=== PATIENT | male | born 1950 | race African-American/Black ===

== ENCOUNTER 2018-03-13 01:42 | Inpatient (IN) ==
[2018-03-13] MEDS ORDERED: Sodium Chlor 0.9% Inj 500 ML IV.SIG ONE ×3 (02:02→06:30)
[2018-03-13 02:23] LABS: ABG Base Excess -0.3 mmol/L (-2-2); ABG PCO2 28 mmHg (38-42); ABG PO2 86 mmHg (61-120)
[2018-03-13 02:24] LABS: Baso # (Auto) 0.1 th/mm3 (0.0-0.2); Baso % (Auto) 1.1 % (0.0-2.0); Eos % (Auto) 0.7 % (0.0-4.0); Hematocrit 36.8 % (39.0-51.0); Hemoglobin 12.9 gm/dL (13.0-17.0); Lymph # (Auto) 0.8 th/mm3 (1.0-4.8); Lymph % (Auto) 11.9 % (9.0-44.0); Mean Corpuscular Hemoglobin 31.8 pg (27.0-34.0); Mean Corpuscular Volume 90.9 fL (80.0-100.0); Mean Platelet Volume 8.6 fL (7.0-11.0); Mono # (Auto) 0.5 th/mm3 (0.0-0.9); Mono % (Auto) 8.2 % (0.0-8.0); Neut # (Auto) 5.1 th/mm3 (1.8-7.7); Neut % (Auto) 78.1 % (16.0-70.0); Platelet Count 219 th/mm3 (150-450); Red Blood Count 4.05 mil/mm3 (4.50-5.90); Red Cell Distribution Width 14.3 % (11.6-17.2); White Blood Count 6.6 th/mm3 (4.0-11.0)
--- NOTE | 2018-03-13 02:29 | XR ---
EXAM DATE: 03/13/2018 2:17 AM EST AGE/SEX: 67 years / Male INDICATIONS: Cough. Congestion. CLINICAL DATA: This is the patient's initial encounter. Patient reports that signs and symptoms have been present for 3 days and indicates a pain score of 5/10. MEDICAL/SURGICAL HISTORY: None. None. COMPARISON: No prior exams available for comparison. FINDINGS: Single AP view the chest. The lungs are clear. Cardiomediastinal silhouette within normal limits. No evidence of pleural effusion or pneumothorax. CONCLUSION: No acute cardiopulmonary disease identified. Electronically signed by: Miller Kenney MD 03/13/2018 2:28 AM EST
[2018-03-13 02:37] LABS: Alanine Aminotransferase 15 U/L (12-78); Albumin 3.7 g/dL (3.4-5.0); Anion Gap 11 meq/L (5-15); Aspartate Aminotransferase 16 U/L (15-37); Blood Urea Nitrogen 13 mg/dL (7-18); Calcium 8.6 mg/dL (8.5-10.1); Carbon Dioxide 23.3 meq/L (21.0-32.0); Chloride 106 meq/L (98-107); Glomerular Filtration Rate 55 mL/min (>89); Glucose,Random 168 mg/dL (74-106); Lipase 86 U/L (73-393); Potassium 3.4 meq/L (3.5-5.1); Sodium 140 meq/L (136-145)
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
[2018-03-13 02:46] LABS: Alkaline Phosphatase 51 U/L (45-117); Creatine Kinase 247 U/L (39-308); Total Protein 8.1 g/dL (6.4-8.2)
[2018-03-13 02:59] LABS: Creatine Kinase MB 3.2 ng/mL (0.5-3.6)
--- NOTE | 2018-03-13 03:05 | CT ---
EXAM DATE: 03/13/2018 2:59 AM EST AGE/SEX: 67 years / Male INDICATIONS: Altered mental status. CLINICAL DATA: This is the patient's initial encounter. Patient reports that signs and symptoms have been present for 1 day and indicates a pain score of 0/10. MEDICAL/SURGICAL HISTORY: Hypertension. None. RADIATION DOSE: 52.19 CTDI (mGy) COMPARISON: No prior exams available for comparison. TECHNIQUE: CT of the head without contrast. Using automated exposure control and adjustment of the mA and/or kV according to patient size, radiation dose was kept as low as reasonably achievable to ob tain optimal diagnostic quality images. DICOM format image data is available electronically for revi ew and comparison. FINDINGS: Cerebrum: The ventricles are normal for age. No evidence of midline shift, mass lesion, hemorrhage or acute infarction. No extraaxial fluid collections are seen. Posterior Fossa: The cerebellum and brainstem are intact. The 4th ventricle is midline. The cerebe llopontine angle is unremarkable. Extracranial: The visualized portion of the orbits is intact. Skull: The calvaria is intact. No evidence of skull fracture. CONCLUSION: No acute intracranial findings. . Electronically signed by: Miller Kenney MD 03/13/2018 3:04 AM EST
[2018-03-13] MEDS ORDERED: Vancomycin Inj 1,000 MG in Sodium Chlor 0.9% Inj 250 ML IV.SIG ONE (03:30)
[2018-03-13] MEDS ORDERED: Piperacil/Tazo 3.375 GM Premix 50 ML IV.SIG ONE (03:30)
[2018-03-13 03:35] LABS: Amphetamine Screen,Urine Neg (Neg); Barbiturate Screen,Urine Neg (Neg); Cannabinoid Screen,Urine Neg (Neg); Cocaine Screen,Urine Neg (Neg)
[2018-03-13 03:47] LABS: Bilirubin,Urine Negative (Negative); Clarity,Urine Clear (Clear); Color,Urine Yellow (Yellw/Straw); Glucose,Urine (UA) Negative (Negative); Hyaline Casts,Urine 26 /lpf (0-3); Leukocyte Esterase,Urine Negative (Negative); Mucus,Urine Few /lpf (Occasional); Nitrite,Urine Negative (Negative); Specific Gravity,Urine 1.011 (1.002-1.035)
[2018-03-13 03:54] LABS: Opiate Screen,Urine Neg (Neg)
[2018-03-13] MEDS ORDERED: Bisacodyl 10 MG Supp RECTAL PRN (04:46)
[2018-03-13] MEDS ORDERED: Acetaminophen 325 MG Tablet PO PRN (04:46)
[2018-03-13] MEDS ORDERED: Enoxaparin Inj 40 MG/0.4 ML Syringe SQ SCH (05:00)
[2018-03-13] MEDS ORDERED: Piperacil/Tazo 3.375 GM Premix 50 ML IV.SIG SCH (05:00)
[2018-03-13] MEDS ORDERED: Haloperidol Inj 5 MG/ML Ampul IM ONE ×2 (05:25→05:48)
[2018-03-13] MEDS ORDERED: Haloperidol Inj 5 MG/ML Ampul ONE (05:26)
[2018-03-13] MEDS ORDERED: Thiamine Inj 500 MG in Sodium Chlor 0.9% Inj 250 ML IV.SIG ONE (07:30)
--- NOTE | 2018-03-13 07:49 | CT ---
EXAM DATE: 03/13/2018 7:46 AM EST AGE/SEX: 67 years / Male INDICATIONS: Short of breath. Embolism. CLINICAL DATA: This is the patient's initial encounter. Patient reports that signs and symptoms have been present for 1 day and indicates a pain score of Nonresponsive. MEDICAL/SURGICAL HISTORY: Hypertension. Non-responsive. RADIATION DOSE: 10.70 CTDI (mGy) COMPARISON: No prior exams available for comparison. TECHNIQUE: Volumetric scanning was performed using a multi-row detector CT scanner during bolus infu jonelle of 73 ml Omnipaque 350 (iohexol) nonionic water-soluble contrast as a single exam dose. The valeria a was post processed with a variety of visualization algorithms including full volume maximum intensi ty projection and sliding thin slab reformation. Using automated exposure control and adjustment of t he mA and/or kV according to patient size, radiation dose was kept as low as reasonably achievable to obtain optimal diagnostic quality images. DICOM format image data is available electronically for r eview and comparison. FINDINGS: Pulmonary Arteries: No filling defects are seen in the pulmonary arteries out to the subsegmental ve ssels. The left and right pulmonary arteries are normal in diameter. Lung: No infiltrates seen. 4 mm granuloma right upper lobe. Effusion: None. Mediastinum: No evidence of mediastinal or hilar adenopathy. Other: The axilla is unremarkable. CONCLUSION: 1. Negative for central pulmonary emboli. 2. There is no pericardial effusion. 3. I don't see evidence for congestive failure. 4. I do not see significant emphysematous changes. Electronically signed by: Bony Veloz MD 03/13/2018 7:48 AM EST
[2018-03-13] MEDS: Sod Chloride 0.9% Inj 1,000 ML IV.CONT SCH ×2 (12:14→17:38)
[2018-03-13] MEDS: Piperacil/Tazo 3.375 GM Premix 50 ML IV.SIG SCH ×3 (12:14→23:11)
--- NOTE | 2018-03-13 14:05 | P.HPIM ---
History of Present Illness Primary Care Physician: UNKNOWN Patient is a poor historian and history collected from ED documentation and family account. Patient is a 67 year old male with history of HTN presenting to the ED after being found poorly responsive in a vehicle. It is unclear where patient was going or coming from but he was brought to the ED for evaluation. Patient unable to provide history and mentation is depressed during evaluation. In ED labwork unremarkable, CTH negative, toxicology negative, ETOH normal, ABG without evidence of hypercarbia causing AMS. CTA performed for elevated D- dimer negative. CXR negative. No evidence of hyPOnatremia. Patient noted to have tremor in examination which appears to have occured within the last 6 months. Unclear etiology. Diagnosis (1) Hypertension: (2) Abnormal ABGs: Review of Systems ROS Unobtainable: unobtainable due to mental condition [facility] Medical History Medical History Medical history unknown (Acute) Surgical history unknown (Acute) Hypertension (Acute) Social History Social History Second Hand Smoke Exposure: No Smoking Status: Cognitive impairment How Often Do You Have a Drink Containing Alcohol: Unable to Obtain Immunization History Tetanus Immunization: Unsure Medications and Allergies Allergies Allergy/AdvReac Type Severity Reaction Status Date / Time No Known Allergies Allergy Verified 03/13/18 01:56 Home Medications Medication Instructions Recorded Confirmed Type Unable to Obtain Home Meds 03/13/18 03/13/18 History Active Medications: Active Medications Acetaminophen (Tylenol) 650 mg PO Q4H PRN PRN Reason: Temp > 100.4 Acetaminophen (Tylenol) 650 mg PO Q4H PRN PRN Reason: Temp > 100.4 Al Hydroxide/Mg Hydroxide (Milk Of Magnesia Liq) 30 ml PO Q12H PRN PRN Reason: Mild Constipation Bisacodyl (Dulcolax Supp) 10 mg RECTAL DAILY PRN PRN Reason: SEVERE CONSITIPATION Enalaprilat (Vasotec Inj) 2.5 mg IV.PUSH Q6H PRN PRN Reason: SBP>160, DBP>90 Last Admin: 03/13/18 14:00 Dose: 2.5 mg Enoxaparin Sodium (Lovenox Inj) 40 mg SQ Q24H [facility] Last Admin: 03/13/18 06:08 Dose: 40 mg Sodium Chloride (Ns Inj) 1,000 mls @ 100 mls/hr IV.CONT .Q10H [facility] Last Admin: 03/13/18 12:14 Dose: 100 mls/hr Piperacillin/Tazobactam/Dextrose (Zosyn 3.375 Gm Premix) 50 mls @ 100 mls/hr IV.SIG Q6H [facility] Last Infusion: 03/13/18 13:17 Dose: Infused Lactulose (Lactulose Liq) 30 ml PO DAILY PRN PRN Reason: SEVERE CONSITIPATION Ondansetron HCl (Zofran Inj) 4 mg IV.PUSH Q6H PRN PRN Reason: NAUSEA OR VOMITING Sennosides (Senokot) 17.2 mg PO Q12H PRN PRN Reason: Moderate Constipation Sodium Chloride (Ns Flush) 2 ml IV.FLUSH BID [facility] Last Admin: 03/13/18 12:14 Dose: 2 ml Sodium Chloride (Ns Flush) 2 ml IV.FLUSH PRN PRN PRN Reason: FLUSH AFTER USING IV ACCESS Sodium Chloride (Ns Flush) 2 ml IV.FLUSH BID [facility] Sodium Chloride (Ns Flush) 2 ml IV.FLUSH PRN PRN PRN Reason: FLUSH AFTER USING IV ACCESS Physical Exam Vital signs: Last Vital Signs Temp 98.5 F 03/13/18 02:15 Pulse 68 03/13/18 13:44 Resp 16 03/13/18 12:00 BP 190/88 H 03/13/18 12:00 Pulse Ox 99 03/13/18 12:00 Intake & Output 03/11/18 03/12/18 03/13/18 03/14/18 06:59 06:59 06:59 06:59 Intake Total 1050 / 1050 1055 / 1055 Output Total 200 / 200 Balance 1050 / 1050 855 / 855 Weight 77.111 kg gen: lethargic heent: EOMI, PERRLA CVS: S1/S2, no m/r/g Resp: CTA GI: soft, non tender, non distended, no guarding or rebound ext: no edema Neuro: + tremors diffusely. Negative brudinski objectively ( poorly compliant with directions). Sensation intact UE/LE bilaterally. No focal deficit grossly but patient occasionally slurs speech. Unable to access power due to lethargy. Results Labs CBC & Chem 7: 03/13/18 02:05 03/13/18 02:05 Imaging Impressions Chest CTA 03/13/18 00:00 CONCLUSION: 1. Negative for central pulmonary emboli. 2. There is no pericardial effusion. 3. I don't see evidence for congestive failure. 4. I do not see significant emphysematous changes. Chest X-Ray 03/13/18 01:56 CONCLUSION: No acute cardiopulmonary disease identified. Head CT 03/13/18 01:56 CONCLUSION: No acute intracranial findings. . Caprini VTE Risk Assessment Caprini VTE Risk Assessment: No/Low Risk (score <= 1) Caprini Risk Assessment Model: Point Value = 1 Point Value = 2 Point Value = 3 Point Value = 5 Age 41-60 Minor surgery BMI > 25 kg/m2 Swollen legs Varicose veins or History of unexplained or recurrent spontaneous Oral contraceptives or hormone replacement Sepsis (< 1 month) Serious lung disease, including pneumonia (< 1 month) Abnormal pulmonary function Acute myocardial infarction Congestive heart failure (< 1 month) History of inflammatory bowel disease Medical patient at bed rest Age 61-74 Arthroscopic surgery Major open surgery (> 45 min) Laparoscopic surgery (> 45 min) Malignancy Confined to bed (> 72 hours) Immobilizing plaster cast Central venous access Age >= 75 History of VTE Family history of VTE Factor V Leiden Prothrombin [id number] Lupus anticoagulant Anticardiolipin antibodies Elevated serum homocysteine Heparin-induced thrombocytopenia Other congenital or acquired thrombophilia Stroke (< 1 month) Elective arthroplasty Hip, pelvis, or leg fracture Acute spinal cord injury (< 1 month) Prophylaxis Regimen: Total Risk Factor Score Risk Level Prophylaxis Regimen 0-1 Low Early ambulation 2 Moderate Order ONE of the following: *Sequential Compression Device (SCD) *Heparin 5000 units SQ BID 3-4 Higher Order ONE of the following medications: *Heparin 5000 units SQ TID *Enoxaparin/Lovenox 40 mg SQ daily (WT < 150 kg, CrCl > 30 mL/min) *Enoxaparin/Lovenox 30 mg SQ daily (WT < 150 kg, CrCl > 10-29 mL/min) *Enoxaparin/Lovenox 30 mg SQ BID (WT < 150 kg, CrCl > 30 mL/min) AND/OR *Sequential Compression Device (SCD) 5 or more Highest Order ONE of the following medications: *Heparin 5000 units SQ TID (Preferred with Epidurals) *Enoxaparin/Lovenox 40 mg SQ daily (WT < 150 kg, CrCl > 30 mL/min) *Enoxaparin/Lovenox 30 mg SQ daily (WT < 150 kg, CrCl > 10-29 mL/min) *Enoxaparin/Lovenox 30 mg SQ BID (WT < 150 kg, CrCl > 30 mL/min) AND *Sequential Compression Device (SCD) Assessment and Plan (1) Hypertension: Code(s): I10 - Essential (primary) hypertension Status: Acute (2) Abnormal ABGs: Code(s): R79.81 - Abnormal blood-gas level Status: Acute Plan Patient is a 67 year old male with history of HTN presenting to ED for AMS suspected to be secondary to possible infectious vs metabolic disturbance Neurology: AMS - exactly etiology unclear at this time. - CTH negative - MRI brain ordered - PENDING - EEG - PENDING completion ( in progress as of 2:18pm) - labwork unremarkable. No electrolyte Abn. Tox negative. BG normal. ABG without carboxyhemoglobin. No CO 2 retention. - speech evaluation - maintain NPO status for now - neurology consult - ? lumbar puncture. - psychiatry consult code: FC dvt ppx dispo: med/surg diet: NPO pending speech eval
--- NOTE | 2018-03-13 17:03 | MR ---
EXAM DATE: 03/13/2018 4:59 PM EST AGE/SEX: 67 years / Male INDICATIONS: Altered mental status. CLINICAL DATA: This is the patient's subsequent encounter. Patient reports that signs and symptoms h ave been present for 1 day and indicates a pain score of 0/10. MEDICAL/SURGICAL HISTORY: Hypertension. None. [place] [facility] [place]. . TECHNIQUE: Multiplanar, multisequence examination of the brain was performed without and with 7.5 ml Gadavist (gadobutrol) contrast as a single exam dose. Some of the images are limited due to motion ar tifact. FINDINGS: Cerebrum: The ventricles are normal for age. No evidence of midline shift, mass lesion, hemorrhage or acute infarction. No extraaxial fluid collections are seen. The pituitary gland and suprasellar cistern are normal in configuration. White Matter: No significant signal abnormalities are seen in the white matter. Posterior Fossa: The cerebellum and brainstem are intact. The 4th ventricle is midline. The cerebel lopontine angle is unremarkable. The cerebellar tonsils are normal in position. Diffusion Imaging: No focal areas of restricted diffusion are seen. No evidence of acute infarction . Extracranial: The visualized portions of the orbits and paranasal sinuses are unremarkable. Post Contrast: No abnormal areas of parenchymal or dural enhancement. No evidence of blood-brain ba rrier breakdown. CONCLUSION: 1. Grossly unremarkable MRI of the brain. No definite acute intracranial pathology. Electronically signed by: Klaus Silva MD 03/13/2018 5:02 PM EST
[2018-03-13] MEDS ORDERED: Gadobutrol PF 7.5 MMOL/7.5 ML Vial (for RAD) IV.SIG ONE (17:15)
[2018-03-13] MEDS ORDERED: Vancomycin Consult Pharmacy OTHER PRN (17:55)
--- NOTE | 2018-03-13 18:22 | MG ---
cc: Andi Caro MD EEG NUMBER: [id number] CLINICAL HISTORY: Sitting in his car, confused. MEDICATIONS: Zosyn. FINDINGS: Diffuse alpha and beta rhythms are noted. Recording overall is synchronous and symmetric. No hemisphere asymmetry is noted. No epileptiform or seizure activity is seen. Photic stimulation is performed without significant posterior driving. Hyperventilation is not performed. The patient is noted to be asleep and snoring quite a bit, but does not reach stage II sleep. IMPRESSION: A normal awake and sleep electroencephalogram. No evidence for a focal or diffuse abnormality. Andi Caro MD DJM/ll , 05:29 PM , 05:34 PM
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
[2018-03-13 20:06] LABS: Hemoglobin 14.3 gm/dL (13.0-17.0); Mean Corpuscular Volume 91.3 fL (80.0-100.0); Mean Platelet Volume 8.6 fL (7.0-11.0); Platelet Count 221 th/mm3 (150-450); Red Blood Count 4.61 mil/mm3 (4.50-5.90); Red Cell Distribution Width 14.4 % (11.6-17.2); White Blood Count 6.1 th/mm3 (4.0-11.0)
[2018-03-13 20:11] LABS: Activated Partial Thrombo Time 26.1 sec (23.4-31.7); Prothrombin Time 10.6 sec (9.8-11.6)
[2018-03-13] MEDS: ACYCLOVIR IV.SIG SCH (20:42)
[2018-03-13] MEDS: SODIUM CHLOR 0.9% IV.SIG SCH (20:42)
[2018-03-13 20:47] LABS: Vitamin B12 632 pg/mL (193-986)
[2018-03-13] MEDS ORDERED: Vancomycin Inj 1,500 MG in Sodium Chlor 0.9% Inj 500 ML IV.SIG ONE (21:00)
--- NOTE | 2018-03-13 21:46 | ECG ---
Date Performed: 03/13/2018 Time Performed: 06:27:05 PTAGE: 67 years EKG: Sinus rhythm POSSIBLE LEFT ATRIAL ENLARGEMENT ST DEVIATION AND MODERATE T-WAVE ABNORMALITY, CONSIDER ANTEROLATERA L ISCHEMIA ABNORMAL ECG NO PREVIOUS TRACING DOCTOR: Jerad Esparza Interpretating Date/Time 03/13/2018 21:44:40
[2018-03-14] MEDS: Sod Chloride 0.9% Inj 1,000 ML IV.CONT SCH ×3 (02:09→22:06)
[2018-03-14] MEDS: Piperacil/Tazo 3.375 GM Premix 50 ML IV.SIG SCH ×2 (04:24→09:36)
[2018-03-14] MEDS: ACYCLOVIR IV.SIG SCH ×3 (05:03→22:56)
[2018-03-14] MEDS: SODIUM CHLOR 0.9% IV.SIG SCH ×3 (05:03→22:56)
[2018-03-14 07:23] LABS: Baso # (Auto) 0.1 th/mm3 (0.0-0.2); Eos # (Auto) 0.2 th/mm3 (0.0-0.4); Eos % (Auto) 2.7 % (0.0-4.0); Hematocrit 40.7 % (39.0-51.0); Hemoglobin 13.7 gm/dL (13.0-17.0); Lymph # (Auto) 1.3 th/mm3 (1.0-4.8); Lymph % (Auto) 18.9 % (9.0-44.0); Mean Corpuscular HGB Conc 33.6 % (32.0-36.0); Mean Corpuscular Hemoglobin 31.2 pg (27.0-34.0); Mean Platelet Volume 8.8 fL (7.0-11.0); Mono # (Auto) 0.5 th/mm3 (0.0-0.9); Mono % (Auto) 7.5 % (0.0-8.0); Neut # (Auto) 4.7 th/mm3 (1.8-7.7); Neut % (Auto) 69.9 % (16.0-70.0); Platelet Count 208 th/mm3 (150-450); Red Blood Count 4.38 mil/mm3 (4.50-5.90); Red Cell Distribution Width 14.1 % (11.6-17.2); White Blood Count 6.8 th/mm3 (4.0-11.0)
--- NOTE | 2018-03-14 07:24 | P.PNNEU ---
Subjective Active Medications: Active Medications Acetaminophen (Tylenol) 650 mg PO Q4H PRN PRN Reason: Temp > 100.4 Acetaminophen (Tylenol) 650 mg PO Q4H PRN PRN Reason: Temp > 100.4 Al Hydroxide/Mg Hydroxide (Milk Of Magnesia Liq) 30 ml PO Q12H PRN PRN Reason: Mild Constipation Amlodipine Besylate (Norvasc) 5 mg PO DAILY [facility] Bisacodyl (Dulcolax Supp) 10 mg RECTAL DAILY PRN PRN Reason: SEVERE CONSITIPATION Enalaprilat (Vasotec Inj) 2.5 mg IV.PUSH Q6H PRN PRN Reason: SBP>160, DBP>90 Sodium Chloride (Ns Inj) 1,000 mls @ 100 mls/hr IV.CONT .Q10H [facility] Last Admin: 03/14/18 02:09 Dose: 100 mls/hr Piperacillin/Tazobactam/Dextrose (Zosyn 3.375 Gm Premix) 50 mls @ 100 mls/hr IV.SIG Q6H [facility] Last Infusion: 03/14/18 05:04 Dose: Infused Acyclovir Sodium 770 mg/ (Sodium Chloride) 165.4 mls @ 165.4 mls/hr IV.SIG Q8H [facility] Last Infusion: 03/14/18 06:21 Dose: Infused Ceftriaxone Sodium 2,000 mg/ (Sodium Chloride) 100 mls @ 200 mls/hr IV.SIG Q12H [facility] Last Infusion: 03/14/18 06:25 Dose: Infused Ampicillin Sodium 1,000 mg/ (Sodium Chloride) 100 mls @ 400 mls/hr IV.SIG Q4H [facility] Last Infusion: 03/14/18 05:50 Dose: Infused Lactulose (Lactulose Liq) 30 ml PO DAILY PRN PRN Reason: SEVERE CONSITIPATION Metoprolol Succinate (Toprol Xl) 50 mg PO DAILY [facility] Ondansetron HCl (Zofran Inj) 4 mg IV.PUSH Q6H PRN PRN Reason: NAUSEA OR VOMITING Pharmacy Profile Note (Vancomycin Consult Pharmacy) 1 each OTHER UNSCH PRN PRN Reason: Pharmacy to dose Sennosides (Senokot) 17.2 mg PO Q12H PRN PRN Reason: Moderate Constipation Sodium Chloride (Ns Flush) 2 ml IV.FLUSH BID [facility] Last Admin: 03/13/18 20:43 Dose: Not Given Sodium Chloride (Ns Flush) 2 ml IV.FLUSH PRN PRN PRN Reason: FLUSH AFTER USING IV ACCESS Allergies/Adverse Reactions: Allergies Allergy/AdvReac Type Severity Reaction Status Date / Time No Known Allergies Allergy Verified 03/13/18 01:56 Physical Exam Vital signs: Vital Signs 03/13/18 07:30 03/13/18 09:25 03/13/18 12:00 Temperature Pulse Rate 85 84 83 Respiratory Rate 18 18 16 Blood Pressure 140/83 166/75 H 190/88 H Pulse Oximetry 99 03/13/18 13:44 03/13/18 15:37 03/13/18 20:00 Temperature 97.5 F L Pulse Rate 68 77 Respiratory Rate 17 Blood Pressure 152/81 H 163/79 H Pulse Oximetry 98 03/13/18 23:56 03/14/18 04:00 03/14/18 07:09 Temperature 98.6 F 98.3 F Pulse Rate 75 95 H 94 H Respiratory Rate 20 20 16 Blood Pressure 174/84 H 188/84 H 175/77 H Pulse Oximetry 98 99 100 Intake & Output 03/13/18 03/14/18 03/14/18 18:59 06:59 18:59 Intake Total 2105 / 2105 3485.8 / 3485.8 Output Total 200 / 200 600 / 600 Balance 1905 / 1905 2885.8 / 2885.8 Weight 77.111 kg Intake: IV 2105 / 2105 2445.8 / 2445.8 NS Inj 1,000 ML @ 100 mls/hr IV 1000 / 1000 1000 / 1000 .CONT .Q10H [facility] Rx#:[id number] Zovirax Inj 770 MG In NS Inj 330.8 / 330.8 150 ML @ 165.4 mls/hr IV.SIG Q8H [facility] Rx#:[id number] Ampicillin Inj 1,000 MG In NS 300 / 300 Inj 100 ML @ 400 mls/hr IV.SIG Q4H [facility] Rx#:[id number] Zosyn 3.375 GM Premix 50 ML @ 100 / 100 100 / 100 100 mls/hr IV.SIG Q6H [facility] Rx#: [id number] NS Inj 500 ML @ Wide Open IV. 500 / 500 SIG BOLUS ONE Rx#:[id number] Thiamine Inj 500 MG In NS Inj 255 / 255 250 ML @ 62.5 mls/hr IV.SIG ONCE ONE Rx#:[id number] Vancomycin Inj 1,500 MG In NS 515 / 515 Inj 500 ML @ 250 mls/hr IV.SIG ONCE ONE Rx#:[id number] Rocephin Inj 2,000 MG In NS Inj 200 / 200 100 ML @ 200 mls/hr IV.SIG Q12H [facility] Rx#:[id number] Oral 240 / 240 Other 800 / 800 Output: Urine 200 / 200 600 / 600 Other: Other Intake Source Saline Solution # Voids 1 Weight On Admission 77.111 kg Narrative: awake now mar 2018 knows address in [place] a little slow to answer Objective Laboratory Results - last 24 hr 03/13/18 03/13/18 03/13/18 13:07 17:42 19:29 WBC RBC Hgb Hct MCV MCH MCHC RDW Plt Count MPV ESR 46 H PT INR APTT POC Glucose 83 72 C-Reactive Protein Total Protein (PEP) Albumin (PEP) Albumin/Globulin Ratio Mqdqt-[id number]-Wvfyvbtfd Dwjqm-0-Aackiyijx Beta Globulins Gamma Globulins Vitamin B12 Folate Rheumatoid Factor Scrn Rheumatoid Factor Titer 03/13/18 03/13/18 03/13/18 19:29 19:29 19:29 WBC 6.1 RBC 4.61 Hgb 14.3 Hct 42.0 MCV 91.3 MCH 31.0 MCHC 34.0 RDW 14.4 Plt Count 221 MPV 8.6 ESR PT 10.6 INR 1.0 APTT 26.1 POC Glucose C-Reactive Protein 2.40 H Total Protein (PEP) 8.8 H Albumin (PEP) 4.80 Albumin/Globulin Ratio 1.20 L Jqekc-6-Ojmxbbviu 0.22 Ctilj-9-Lsgvedpmv 0.98 Beta Globulins 1.21 H Gamma Globulins 1.59 H Vitamin B12 632 Folate Greater than 20.0 H Rheumatoid Factor Scrn Negative Rheumatoid Factor Titer Not Reportable Review/Management - Review/Management Plan: imp improved mri and eeg neg check LP have daughter call me today
[2018-03-14 07:47] LABS: Albumin 3.4 g/dL (3.4-5.0); Anion Gap 9 meq/L (5-15); Aspartate Aminotransferase 28 U/L (15-37); Blood Urea Nitrogen 8 mg/dL (7-18); Calcium 8.8 mg/dL (8.5-10.1); Carbon Dioxide 22.9 meq/L (21.0-32.0); Chloride 111 meq/L (98-107); Glomerular Filtration Rate 76 mL/min (>89); Glucose,Random 87 mg/dL (74-106); Magnesium 1.9 mg/dL (1.5-2.5); Potassium 3.2 meq/L (3.5-5.1); Sodium 143 meq/L (136-145)
[2018-03-14 07:48] LABS: Alanine Aminotransferase 17 U/L (12-78); Phosphorus 2.7 mg/dL (2.5-4.9)
[2018-03-14 07:50] LABS: Alkaline Phosphatase 50 U/L (45-117); Total Protein 7.9 g/dL (6.4-8.2)
[2018-03-14] MEDS: amLODIPine 5 MG Tablet PO SCH ×2 (08:50→09:35)
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
[2018-03-14] MEDS ORDERED: Haloperidol Inj 5 MG/ML Ampul IV.PUSH PRN (11:26)
[2018-03-14] MEDS: Vancomycin Inj 1,000 MG in Sodium Chlor 0.9% Inj 250 ML IV.SIG SCH (12:37)
[2018-03-14] MEDS ORDERED: amLODIPine 5 MG Tablet PO ONE (15:00)
[2018-03-14] MEDS ORDERED: Haloperidol Inj 5 MG/ML Ampul IM PRN (15:56)
[2018-03-15] MEDS: Vancomycin Inj 1,000 MG in Sodium Chlor 0.9% Inj 250 ML IV.SIG SCH ×3 (01:17→23:43)
[2018-03-15] MEDS: SODIUM CHLOR 0.9% IV.SIG SCH ×3 (04:02→21:26)
[2018-03-15] MEDS: ACYCLOVIR IV.SIG SCH ×3 (04:02→21:26)
[2018-03-15 04:53] LABS: Baso # (Auto) 0.1 th/mm3 (0.0-0.2); Baso % (Auto) 1.2 % (0.0-2.0); Eos # (Auto) 0.1 th/mm3 (0.0-0.4); Eos % (Auto) 1.5 % (0.0-4.0); Hematocrit 39.6 % (39.0-51.0); Hemoglobin 13.6 gm/dL (13.0-17.0); Lymph # (Auto) 1.5 th/mm3 (1.0-4.8); Lymph % (Auto) 19.8 % (9.0-44.0); Mean Corpuscular HGB Conc 34.4 % (32.0-36.0); Mean Corpuscular Hemoglobin 31.4 pg (27.0-34.0); Mean Corpuscular Volume 91.3 fL (80.0-100.0); Mean Platelet Volume 8.4 fL (7.0-11.0); Mono # (Auto) 0.6 th/mm3 (0.0-0.9); Neut # (Auto) 5.4 th/mm3 (1.8-7.7); Neut % (Auto) 69.5 % (16.0-70.0); Platelet Count 227 th/mm3 (150-450); Red Blood Count 4.34 mil/mm3 (4.50-5.90); White Blood Count 7.8 th/mm3 (4.0-11.0)
[2018-03-15 05:19] LABS: Anion Gap 8 meq/L (5-15); Blood Urea Nitrogen 8 mg/dL (7-18); Calcium 8.3 mg/dL (8.5-10.1); Chloride 108 meq/L (98-107); Glomerular Filtration Rate Greater Than 89 mL/min (>89); Glucose,Random 87 mg/dL (74-106); Potassium 3.2 meq/L (3.5-5.1); Sodium 143 meq/L (136-145)
[2018-03-15] MEDS: Sod Chloride 0.9% Inj 1,000 ML IV.CONT SCH ×3 (07:54→23:44)
[2018-03-15] MEDS: amLODIPine 10 MG Tablet PO SCH (08:03)
--- NOTE | 2018-03-15 08:14 | P.PN ---
Subjective Interval history: Follow-up for encephalopathy. The patient is currently awake, alert, working with speech therapy. Patient initially appeared to be improved compared to yesterday, however then became significantly confused and agitated, got up from bed, started getting dressed, requesting to leave, not following commands. Patient does not answer any medical questions appropriately. No documented fevers. Blood pressure has been elevated. Discussed with neurology Dr. Caro, request LP to get done today as this is medically necessary. Also discussed with Dr. Julio, patient significantly lacks capacity to make medical decisions. Palliative care consultation pending today. Physical Exam Vital signs: Vital Signs 03/14/18 11:49 03/14/18 15:16 03/14/18 19:55 Temperature 98.1 F 98.8 F 98.9 F Pulse Rate 91 H 118 H 85 Respiratory Rate 20 20 20 Blood Pressure 186/91 H 139/85 210/89 H Pulse Oximetry 99 94 L 98 03/14/18 23:23 03/15/18 04:00 03/15/18 04:31 Temperature 98.6 F 97.7 F Pulse Rate 91 H 101 H 102 H Respiratory Rate 20 22 Blood Pressure 197/88 H 223/101 H Pulse Oximetry 95 98 03/15/18 07:53 Temperature 98.8 F Pulse Rate 102 H Respiratory Rate 22 Blood Pressure 181/84 H Pulse Oximetry 98 Intake & Output 03/14/18 03/15/18 03/15/18 18:59 06:59 18:59 Intake Total 565.4 / 565.4 1120.8 / 1120.8 100 / 100 Balance 565.4 / 565.4 1120.8 / 1120.8 100 / 100 Intake: IV 565.4 / 565.4 880.8 / 880.8 100 / 100 Zovirax Inj 770 MG In NS Inj 165.4 / 165.4 330.8 / 330.8 150 ML @ 165.4 mls/hr IV.SIG Q8H MIKEL Rx#:[id number] Ampicillin Inj 1,000 MG In NS 100 / 100 300 / 300 Inj 100 ML @ 400 mls/hr IV.SIG Q4H MIKEL Rx#:[id number] Zosyn 3.375 GM Premix 50 ML @ 50 / 50 100 mls/hr IV.SIG Q6H MIKEL Rx#: [id number] Vancomycin Inj 1,000 MG In NS 250 / 250 250 / 250 Inj 250 ML @ 250 mls/hr IV.SIG Q12H MIKEL Rx#:[id number] Rocephin Inj 2,000 MG In NS Inj 100 / 100 100 ML @ 200 mls/hr IV.SIG Q12H MIKEL Rx#:[id number] Oral 240 / 240 Other: # Voids 1 # Incontinent Voids 1 Narrative: GENERAL: Well-nourished, well-developed male patient in NAD. Very confused, slow to answer questions, and answers questions inappropriately. SKIN: Warm and dry. No rash. HEENT: Normocephalic. Atraumatic. Pupils equal and round. Mucous membranes pink and moist. NECK: Supple. Trachea midline. Nontender. CARDIOVASCULAR: Regular rate and rhythm. No murmur appreciated. RESPIRATORY: No accessory muscle use. Clear to auscultation. Breath sounds equal bilaterally. GASTROINTESTINAL: Abdomen soft, non-tender, nondistended. Normoactive bowel sounds x4. MUSCULOSKELETAL: No obvious deformities. Extremities without clubbing, cyanosis , or edema. NEUROLOGICAL: Awake and alert, oriented to self, and intermittently to hospital and [place]. No obvious cranial nerve deficits. Moving all extremities spontaneously. Normal speech. PSYCHIATRIC: Confused. Slightly agitated. Poor insight. Results - Labs CBC & Chem 7: 03/15/18 04:35 03/15/18 11:30 Laboratory Results - last 24 hr 03/13/18 03/13/18 03/15/18 19:29 19:29 04:35 WBC 7.8 RBC 4.34 L Hgb 13.6 Hct 39.6 MCV 91.3 MCH 31.4 MCHC 34.4 RDW 14.0 Plt Count 227 MPV 8.4 Neut % (Auto) 69.5 Lymph % (Auto) 19.8 [place] % (Auto) 8.0 Eos % (Auto) 1.5 Baso % (Auto) 1.2 Neut # (Auto) 5.4 Lymph # (Auto) 1.5 [place] # (Auto) 0.6 Eos # (Auto) 0.1 Baso # (Auto) 0.1 WBC Differential . Differential Comment Auto diff final Sodium Potassium Chloride Carbon Dioxide Anion Gap BUN Creatinine Estimated GFR Random Glucose Calcium PEP Pathologist Comment RPR Nonreactive 03/15/18 04:35 WBC RBC Hgb Hct MCV MCH MCHC RDW Plt Count MPV Neut % (Auto) Lymph % (Auto) [place] % (Auto) Eos % (Auto) Baso % (Auto) Neut # (Auto) Lymph # (Auto) [place] # (Auto) Eos # (Auto) Baso # (Auto) WBC Differential Differential Comment Sodium 143 Potassium 3.2 L Chloride 108 H Carbon Dioxide 27.0 Anion Gap 8 BUN 8 Creatinine 0.96 Estimated GFR Greater than 89 Random Glucose 87 Calcium 8.3 L PEP Pathologist Comment RPR Microbiology 03/13/18 03:15 Clean Catch Urine Urine Culture - Preliminary No growth in 24 hours 03/13/18 03:10 Blood - Peripheral Aerobic Blood Culture - Preliminary No growth in 1 day 03/13/18 03:10 Blood - Peripheral Anaerobic Blood Culture - Preliminary No growth in 1 day 03/13/18 03:08 Blood - Peripheral Aerobic Blood Culture - Preliminary No growth in 1 day 03/13/18 03:08 Blood - Peripheral Anaerobic Blood Culture - Preliminary No growth in 1 day - Imaging Chest CTA 03/13/18 00:00 CONCLUSION: 1. Negative for central pulmonary emboli. 2. There is no pericardial effusion. 3. I don't see evidence for congestive failure. 4. I do not see significant emphysematous changes. Head MRI 03/13/18 00:00 CONCLUSION: 1. Grossly unremarkable MRI of the brain. No definite acute intracranial pathology. Chest X-Ray 03/13/18 01:56 CONCLUSION: No acute cardiopulmonary disease identified. Head CT 03/13/18 01:56 CONCLUSION: No acute intracranial findings. . Assessment and Plan - Assessment (1) Hypertension Code(s): I10 - Essential (primary) hypertension Status: Acute (2) Abnormal ABGs Code(s): R79.81 - Abnormal blood-gas level Status: Acute - Plan 67-year-old male with history of hypertension presents with AMS via EVAC under [place] act after being found by police stenographer on the side of the road in a vehicle that was disabled due to running out of gas, per ER report. Reportedly patient drove his car here from [place]. Acute encephalopathy/altered mental status: Unclear etiology. Concern for encephalitis. -Head CT and brain MRI reviewed and unremarkable -Chest CTA negative for PE, no effusions, no congestive failure, no emphysema -CXR reviewed and unremarkable -Labs mostly unremarkable, ammonia wnl, no CO2 retention, BG wnl, UDS negative -No obvious signs of infection, UA, urine culture, and CXR negative -Blood cultures with NGTD -EEG reviewed and unremarkable -Continue on empiric IV Vanco/Ampicillin/Rocephin/Acyclovir per neurology -Neurology consulted, appreciate assistance -LP ordered, patient very adamantly refusing, however lacks capacity, anesthesiology consulted for assistance -Psychiatry consulted, patient is under [place] act, discussed with Dr. Julio, agrees patient severely lacks capacity -Palliative care consulted to assist with appointing decision maker and establishing goals of care -soft restraints as needed, Haldol prn agitation -Discussed with Dr. Caro, recommends giving IV Solu-Medrol 1g x1 now Accelerated Hypertension: consider hypertensive encephalopathy possibly contributing to above? -BP as high as 190/88 -Continue on toprol XL 50mg qd, norvasc 10mg, and added lisinopril 20mg daily -IV Vasotec prn -Monitor BP, adjust antihypertensives as needed Hypokalemia: K 3.2, likely secondary to decreased oral intake -give po and IV KCl replacement -monitor electrolytes, replace as needed DVT Prophylaxis: teds/SCDs; avoid chemical prophylaxis with upcoming LP I spent 35 minutes [id number] with the patient or on the holley discussing the patient's disposition, prognosis, and plan of care with his caregivers. Over half the time spent was devoted to counseling the patient regarding placement in coordinating care with caregivers, providers, and case management
--- NOTE | 2018-03-15 09:22 | P.PNNEU ---
Subjective Active Medications: Active Medications Acetaminophen (Tylenol) 650 mg PO Q4H PRN PRN Reason: Temp > 100.4 Acetaminophen (Tylenol) 650 mg PO Q4H PRN PRN Reason: Temp > 100.4 Al Hydroxide/Mg Hydroxide (Milk Of Magnesia Liq) 30 ml PO Q12H PRN PRN Reason: Mild Constipation Amlodipine Besylate (Norvasc) 10 mg PO DAILY [facility] Last Admin: 03/15/18 08:03 Dose: 10 mg Bisacodyl (Dulcolax Supp) 10 mg RECTAL DAILY PRN PRN Reason: SEVERE CONSITIPATION Enalaprilat (Vasotec Inj) 2.5 mg IV.PUSH Q6H PRN PRN Reason: SBP>160, DBP>90 Last Admin: 03/15/18 04:52 Dose: 2.5 mg Haloperidol Lactate (Haldol Inj) 2 mg IM Q6H PRN PRN Reason: AGITATION Sodium Chloride (Ns Inj) 1,000 mls @ 100 mls/hr IV.CONT .Q10H [facility] Last Infusion: 03/15/18 08:03 Dose: 100 mls/hr Acyclovir Sodium 770 mg/ (Sodium Chloride) 165.4 mls @ 165.4 mls/hr IV.SIG Q8H [facility] Last Infusion: 03/15/18 05:02 Dose: Infused Ceftriaxone Sodium 2,000 mg/ (Sodium Chloride) 100 mls @ 200 mls/hr IV.SIG Q12H [facility] Last Infusion: 03/15/18 08:10 Dose: Infused Ampicillin Sodium 1,000 mg/ (Sodium Chloride) 100 mls @ 400 mls/hr IV.SIG Q4H [facility] Last Admin: 03/15/18 08:10 Dose: 400 mls/hr Vancomycin HCl 1,000 mg/ (Sodium Chloride) 250 mls @ 250 mls/hr IV.SIG Q12H [facility] Last Infusion: 03/15/18 02:17 Dose: Infused Lactulose (Lactulose Liq) 30 ml PO DAILY PRN PRN Reason: SEVERE CONSITIPATION Lisinopril (Prinivil) 20 mg PO DAILY [facility] Lorazepam (Ativan Inj) 1 mg IM Q6H PRN PRN Reason: SEVERE AGITATION Last Admin: 03/14/18 17:24 Dose: 1 mg Metoprolol Succinate (Toprol Xl) 50 mg PO DAILY [facility] Last Admin: 03/15/18 08:03 Dose: 50 mg Miscellaneous Information ([facility] Ordered Lab Info) 0 each OTHER ONCE ONE Stop: 03/15/18 11:46 Ondansetron HCl (Zofran Inj) 4 mg IV.PUSH Q6H PRN PRN Reason: NAUSEA OR VOMITING Pharmacy Profile Note (Vancomycin Consult Pharmacy) 1 each OTHER UNSCH PRN PRN Reason: Pharmacy to dose Sennosides (Senokot) 17.2 mg PO Q12H PRN PRN Reason: Moderate Constipation Sodium Chloride (Ns Flush) 2 ml IV.FLUSH BID [facility] Last Admin: 03/15/18 08:03 Dose: Not Given Sodium Chloride (Ns Flush) 2 ml IV.FLUSH PRN PRN PRN Reason: FLUSH AFTER USING IV ACCESS Allergies/Adverse Reactions: Allergies Allergy/AdvReac Type Severity Reaction Status Date / Time No Known Allergies Allergy Verified 03/13/18 01:56 Physical Exam Vital signs: Vital Signs 03/14/18 11:49 03/14/18 15:16 03/14/18 19:55 Temperature 98.1 F 98.8 F 98.9 F Pulse Rate 91 H 118 H 85 Respiratory Rate 20 20 20 Blood Pressure 186/91 H 139/85 210/89 H Pulse Oximetry 99 94 L 98 03/14/18 23:23 03/15/18 04:00 03/15/18 04:31 Temperature 98.6 F 97.7 F Pulse Rate 91 H 101 H 102 H Respiratory Rate 20 22 Blood Pressure 197/88 H 223/101 H Pulse Oximetry 95 98 03/15/18 07:53 Temperature 98.8 F Pulse Rate 102 H Respiratory Rate 22 Blood Pressure 181/84 H Pulse Oximetry 98 Intake & Output 03/14/18 03/15/18 03/15/18 18:59 06:59 18:59 Intake Total 565.4 / 565.4 1120.8 / 1120.8 100 / 100 Balance 565.4 / 565.4 1120.8 / 1120.8 100 / 100 Intake: IV 565.4 / 565.4 880.8 / 880.8 100 / 100 Zovirax Inj 770 MG In NS Inj 165.4 / 165.4 330.8 / 330.8 150 ML @ 165.4 mls/hr IV.SIG Q8H MIKEL Rx#:[id number] Ampicillin Inj 1,000 MG In NS 100 / 100 300 / 300 Inj 100 ML @ 400 mls/hr IV.SIG Q4H MIKEL Rx#:[id number] Zosyn 3.375 GM Premix 50 ML @ 50 / 50 100 mls/hr IV.SIG Q6H MIKEL Rx#: [id number] Vancomycin Inj 1,000 MG In NS 250 / 250 250 / 250 Inj 250 ML @ 250 mls/hr IV.SIG Q12H MIKEL Rx#:[id number] Rocephin Inj 2,000 MG In NS Inj 100 / 100 100 ML @ 200 mls/hr IV.SIG Q12H MIKEL Rx#:[id number] Oral 240 / 240 Other: # Voids 1 # Incontinent Voids 1 Narrative: awake aelrt still encephalopathic knows dec but not yr and cannot remember he is in db even after 30 seconds Objective Laboratory Results - last 24 hr 03/13/18 03/13/18 03/15/18 19:29 19:29 04:35 WBC 7.8 RBC 4.34 L Hgb 13.6 Hct 39.6 MCV 91.3 MCH 31.4 MCHC 34.4 RDW 14.0 Plt Count 227 MPV 8.4 Neut % (Auto) 69.5 Lymph % (Auto) 19.8 [place] % (Auto) 8.0 Eos % (Auto) 1.5 Baso % (Auto) 1.2 Neut # (Auto) 5.4 Lymph # (Auto) 1.5 [place] # (Auto) 0.6 Eos # (Auto) 0.1 Baso # (Auto) 0.1 WBC Differential . Differential Comment Auto diff final Sodium Potassium Chloride Carbon Dioxide Anion Gap BUN Creatinine Estimated GFR Random Glucose Calcium PEP Pathologist Comment RPR Nonreactive 03/15/18 04:35 WBC RBC Hgb Hct MCV MCH MCHC RDW Plt Count MPV Neut % (Auto) Lymph % (Auto) [place] % (Auto) Eos % (Auto) Baso % (Auto) Neut # (Auto) Lymph # (Auto) [place] # (Auto) Eos # (Auto) Baso # (Auto) WBC Differential Differential Comment Sodium 143 Potassium 3.2 L Chloride 108 H Carbon Dioxide 27.0 Anion Gap 8 BUN 8 Creatinine 0.96 Estimated GFR Greater than 89 Random Glucose 87 Calcium 8.3 L PEP Pathologist Comment RPR Microbiology 03/13/18 03:15 Urine Culture - Preliminary Clean Catch Urine No growth in 24 hours 03/13/18 03:10 Aerobic Blood Culture - Preliminary Blood - Peripheral No growth in 1 day Anaerobic Blood Culture - Preliminary No growth in 1 day 03/13/18 03:08 Aerobic Blood Culture - Preliminary Blood - Peripheral No growth in 1 day Anaerobic Blood Culture - Preliminary No growth in 1 day Review/Management - Review/Management Plan: imp improved mri and eeg neg check LP have daughter call me today 03/15/18 encephalopathic he needs LP medically necessary i dw med team rec 1 gm solumedrol and LP they are working on it watch renal fxt on acyclovir unclear if underlying mass
--- NOTE | 2018-03-15 10:26 | P.CONPAL ---
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 U Benzodiazepines Scrn Urine Cocaine Screen U Cannabinoids Screen Serum Alcohol Rheumatoid Factor Scrn Rheumatoid Factor Titer RPR Result Diagrams: 03/18/18 08:31 03/18/18 08:31 Microbiology: Microbiology 03/13/18 03:15 Urine Culture - Final Clean Catch Urine No growth in 48 hours 03/13/18 03:10 Aerobic Blood Culture - Preliminary Blood - Peripheral No growth in 1 day Anaerobic Blood Culture - Preliminary No growth in 1 day 03/13/18 03:08 Aerobic Blood Culture - Preliminary Blood - Peripheral No growth in 1 day Anaerobic Blood Culture - Preliminary No growth in 1 day Imaging: Chest CTA 03/13/18 00:00 CONCLUSION: 1. Negative for central pulmonary emboli. 2. There is no pericardial effusion. 3. I don't see evidence for congestive failure. 4. I do not see significant emphysematous changes. Head MRI 03/13/18 00:00 CONCLUSION: 1. Grossly unremarkable MRI of the brain. No definite acute intracranial pathology. Chest X-Ray 03/13/18 01:56 CONCLUSION: No acute cardiopulmonary disease identified. Head CT 03/13/18 01:56 CONCLUSION: No acute intracranial findings. . Patient/Family Conference Present at Family Conference: Voicemail was left for Sister Belen and other relative Trisha Carrington. Pending callback. 12:42 PM received return call from patient's sister Belen Lyles who provided much of the past history. She also provided patient's son's contact information as Evens Conte . Son was contacted and verified medical history provided by his aunt with the additional information of his physicians name and number, additional prior history of patient's increasing confusion and provided consent for lumbar puncture. Family has requested a letter specifying the patient's hospitalization and incapacitation to allow them to get his car out of impound rather than sustain extra impound fees, as it is uncertain if patient will ever regain capacity. Reviewed clinical course , interventions attempted, patient's current clinical status, past medical, social, family, psychosocial history. Reviewed palliative care purpose and focus as well as the below listed items. Provided palliative care contact information. All questions answered to the best of my ability. . Family Conference Location: Telephone Issues Discussed: * Palliative care role, purpose, approach * Additional medical, psychosocial, and spiritual history * Patients general health, functional status, and cognitive changes in the months leading up to the current hospitalization * Patient/family understanding of the current medical problems * Patient/family understanding of prognosis * Patients goals of care as best understood from advance directives and/or conversations and/or values * Current medical treatment options and benefits/burdens of those options * Likely scenarios comparing ongoing aggressive care with a transition to comfort measures only * Questions answered to the best of my ability * Palliative care contact information provided Assessment and Plan - Disease Oriented Problem List (1) Acute encephalopathy (2) Abnormal ABGs (3) Hypertension (4) Altered mental status (5) Acidosis, lactic (6) Pyuria - Symptom Scale (1) Occasional tremors 0-10 Scale: Unable to quantify (2) Confusion 0-10 Scale: Unable to quantify Pertinent Non-Medical Issues: Psychosocial: Patient was born in [place] moved to [place] many decades ago. 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 He was and has 1 son. He was 2 years ago. Spiritual: [address] Pressman available. Legal: No advance directives available. His son is his decision maker by proxy. Ethical issues impacting care: Patient is not capacitated for decision-making per psychiatry. . Important Contacts: Son: Evens Conte -healthcare proxy decision-maker Sister: Belen Lyles Family: Trisha Carrington . Prognosis: His prognosis is guarded. He has been exhibiting a cognitive decline for 6 months and is showing tremors with no verifiable history of having been diagnosed with any neurologic disease. Given his family history of Parkinson's , this is a possible diagnosis. Attempted to confirm via his primary care provider, Dr. Paul Falcon in [place] , however office is closed for the weekend. At this time he has been declared incapacitated for decision-making by psychiatry. His son wishes to continue aggressive care. It is uncertain if the patient will ever regain capacity. Workup continues, neurology following. . Code Status: Full Code Plan: PLAN: Legal decision maker: Patient is not capacitated for decision-making per psychiatry. It is uncertain whether he will regain capacity. He has 1 son, Evens Conte who would be his proxy decision-maker per [place] statutes. Goals: Aggressive at this time. CODE STATUS: FULL CODE SYMPTOMS: * Confusion: Per family, patient has a baseline paranoia and at home has visitors enter through the garage door for fear of being robbed through the front door. They state that in the community, outside his home, he appears more normal and interactive, but at his home he watches his neighbors activities and over the last 6 months has shown evidence of confusion and memory loss, forgetting to pay his bills, poor attendance to personal hygiene, accusing family members of stealing his license plate. No prior psychiatric illnesses known or diagnosed mental health issues. Psychiatry has evaluated, found him not to be capacitated, but not admissible to inpatient psychiatry and recommends continuing with medical workup as medically necessary. Lumbar puncture pending. Urinalysis negative, toxicology negative, no significant metabolic derangements noted. Continue monitoring until neurological workup is completed. Please note family history of Parkinson's in 2 siblings. * Tremors: Per the records, he had been experiencing tremors over the last 6 months. No known workup has been done. Neurology is evaluating. Contact with PCP is pending, reportedly last saw him 02/11/2018. No further recommendations at this time. Palliative care will continue to follow the patient during hospital course as condition evolves, to assist patient/decision-maker with understanding of their medical conditions, weighing benefits/burdens of treatment options, for clarification of goals of treatment. Additionally will assist with any symptoms of palliative concern. . Appreciation Thank you for the opportunity to participate in the care of Kalyan Conte. Attestation Attestation: To help prompt me to consider important information that might be impacting today's encounter and assessment, information from prior notes written by myself or my colleagues may have been "brought forward" into today's note. My signature on this note, however, is an attestation that I personally performed the exam, history, and/or decision-making noted today, and, unless otherwise indicated, the interactions with patient, family, and staff as well as the review of records all occurred today. I also attest that the listed assessment and stated plan reflect my best clinical judgment today based on the combination of historical information, prior notes, and today's exam/ interactions. When time spent is documented, it refers only to time spent today by the signer, or if indicated, combined time spent today by collaborating physician/nurse practitioner. .
[2018-03-15] MEDS: Lisinopril 20 MG Tablet PO SCH (11:38)
[2018-03-15] MEDS ORDERED: Pharmacy Ordered Lab Info OTHER ONE (11:45)
[2018-03-15] MEDS ORDERED: MethylPREDNISolone Sod Succinate Inj 125 MG/2 ML Vial IV.PUSH ONE (11:51)
[2018-03-15 12:18] LABS: Calcium 8.2 mg/dL (8.5-10.1); Carbon Dioxide 24.9 meq/L (21.0-32.0)
[2018-03-15 12:21] LABS: Vancomycin,Trough 14.4 mcg/mL (5.0-10.0)
--- NOTE | 2018-03-15 13:44 | P.CONPSY ---
Provisional Diagnosis Admission Date: March 13, 2018 04:38 [place] I.: Dementia History of Present Illness Service: ER Primary Care Provider: UNKNOWN History of Present Illness: The patient is a 67-year-old AA man, with no psychiatric history, with known social circumstances, with a history of hypertension, he appears to have dementia also, he denies previous psychiatric hospitalizations, denies previous suicide attempts, denies the use of alcohol and illegal drugs, who was found by a police stenographer on the side of the road in a vehicle that was disabled as it had run out of gas afternoon on 03/12. Patient was noted to be confused, unsure of his location and deemed unable to take care of himself and was therefore Ferro acted to [facility]. After admission he became agitated and began to fight with the staff and was transferred to [place] for further evaluation. He was found to be oriented to person only. He reported that he was from [place] did have a brother and sister in [facility]. He had noted tremors over the past 6 months that have been increasing but has not had these worked up. He denies any substance abuse. Patient was consulted to me to address the Ferro act. On my psychiatric evaluation I find a patient that is superficially cooperative, quite disoriented and confused. Patient is restrained in two-point due to previous agitation because he wanted to leave the hospital. The patient also has been refusing treatment. The patient reports my evaluation that he is in a good mood, that he feels fine. The patient is unable to tell me what is the reason for his hospitalization. 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 He says that he is a specific person and he does not want problems with anybody. The patient confabulates most of his answers. He is oriented in person, but completely disoriented in time and place. He says that he ii in a school, he says is June 1991 and the president of [facility] states is Kei Campos. He denies suicidal and homicidal ideation, denies visual and auditory hallucinations. Past psychiatry: Dementia? Patient not reliable, denies previous psychiatric hospitalizations and suicidal Past medical history Hypertension Paranoia Tremors Past surgical history right ankle surgery Social history Denies all tobacco, alcohol or substance abuse. Family history Unable to obtain Acute encephalopathy/altered mental status: Unclear etiology -Head CT and brain MRI reviewed and unremarkable -Chest CTA negative for PE, no effusions, no congestive failure, no emphysema -CXR reviewed and unremarkable -Labs mostly unremarkable, ammonia wnl, no CO2 retention, BG wnl, UDS negative -No obvious signs of infection, UA, urine culture, and CXR negative -Blood cultures with NGTD -EEG reviewed and unremarkable -Neurology consulted, ordered lumbar puncture, and started on empiric IV Vanco/Ampicillin/Rocephin/Acyclovir -Psychiatry consulted, possible underlying psych component, family members reported chronic paranoia at home -soft restraints as needed, Haldol prn agitation Accelerated Hypertension: consider hypertensive encephalopathy possibly contributing to above? -BP as high as 190/88 -Continue on toprol XL 50mg qd, norvasc 5mg (increased to 10mg 03/14) -IV Vasotec prn -Monitor BP, adjust antihypertensives as needed Hypokalemia: K 3.2, likely secondary to decreased oral intake -give po KCl replacement -monitor electrolytes, replace as needed PMFSH - History History Provided By: Patient - Medical History Medical History: Medical History (Last Reviewed 03/15/18 @ 09:00 by Alfie Gifford) Medical history unknown Surgical history unknown Hypertension - Tobacco History Second Hand Smoke Exposure: No Smoking Status: Cognitive impairment - Alcohol History How Often Do You Have a Drink Containing Alcohol: Unable to Obtain - Immunization History Tetanus Immunization: Unsure Medications and Allergies Active Medications: Active Medications Acetaminophen (Tylenol) 650 mg PO Q4H PRN PRN Reason: Temp > 100.4 Acetaminophen (Tylenol) 650 mg PO Q4H PRN PRN Reason: Temp > 100.4 Al Hydroxide/Mg Hydroxide (Milk Of Magnesia Liq) 30 ml PO Q12H PRN PRN Reason: Mild Constipation Amlodipine Besylate (Norvasc) 10 mg PO DAILY [facility] Last Admin: 03/15/18 08:03 Dose: 10 mg Bisacodyl (Dulcolax Supp) 10 mg RECTAL DAILY PRN PRN Reason: SEVERE CONSITIPATION Enalaprilat (Vasotec Inj) 2.5 mg IV.PUSH Q6H PRN PRN Reason: SBP>160, DBP>90 Last Admin: 03/15/18 11:29 Dose: 2.5 mg Haloperidol Lactate (Haldol Inj) 2 mg IM Q6H PRN PRN Reason: AGITATION Hydralazine HCl (Apresoline Inj) 10 mg IV.PUSH Q4H PRN PRN Reason: SBP> OR = 180, DBP> OR = 100 Sodium Chloride (Ns Inj) 1,000 mls @ 100 mls/hr IV.CONT .Q10H [facility] Last Infusion: 03/15/18 08:03 Dose: 100 mls/hr Acyclovir Sodium 770 mg/ (Sodium Chloride) 165.4 mls @ 165.4 mls/hr IV.SIG Q8H [facility] Last Admin: 03/15/18 13:01 Dose: 165 mls/hr Ceftriaxone Sodium 2,000 mg/ (Sodium Chloride) 100 mls @ 200 mls/hr IV.SIG Q12H [facility] Last Infusion: 03/15/18 08:10 Dose: Infused Ampicillin Sodium 1,000 mg/ (Sodium Chloride) 100 mls @ 400 mls/hr IV.SIG Q4H [facility] Last Admin: 03/15/18 13:01 Dose: 400 mls/hr Vancomycin HCl 1,000 mg/ (Sodium Chloride) 250 mls @ 250 mls/hr IV.SIG Q12H [facility] Last Admin: 03/15/18 11:38 Dose: 250 mls/hr Methylprednisolone Sodium (Succinate 1,000 mg/ Dextrose) 116 mls @ 116 mls/hr IV.SIG ONCE ONE Stop: 03/15/18 14:59 Lactulose (Lactulose Liq) 30 ml PO DAILY PRN PRN Reason: SEVERE CONSITIPATION Lisinopril (Prinivil) 20 mg PO DAILY [facility] Last Admin: 03/15/18 11:38 Dose: Not Given Lorazepam (Ativan Inj) 1 mg IM Q6H PRN PRN Reason: SEVERE AGITATION Last Admin: 03/14/18 17:24 Dose: 1 mg Metoprolol Succinate (Toprol Xl) 50 mg PO DAILY [facility] Last Admin: 03/15/18 08:03 Dose: 50 mg Ondansetron HCl (Zofran Inj) 4 mg IV.PUSH Q6H PRN PRN Reason: NAUSEA OR VOMITING Pharmacy Profile Note (Vancomycin Consult Pharmacy) 1 each OTHER UNSCH PRN PRN Reason: Pharmacy to dose Sennosides (Senokot) 17.2 mg PO Q12H PRN PRN Reason: Moderate Constipation Sodium Chloride (Ns Flush) 2 ml IV.FLUSH BID [facility] Last Admin: 03/15/18 08:03 Dose: Not Given Sodium Chloride (Ns Flush) 2 ml IV.FLUSH PRN PRN PRN Reason: FLUSH AFTER USING IV ACCESS Allergies Allergy/AdvReac Type Severity Reaction Status Date / Time No Known Allergies Allergy Verified 03/13/18 01:56 Home Medications Medication Instructions Recorded Confirmed Type amlodipine [Norvasc] 03/13/18 History metoprolol succinate [Toprol XL] 03/13/18 History Exam Vital signs: Vital Signs 03/14/18 15:16 03/14/18 19:55 03/14/18 23:23 Temperature 98.8 F 98.9 F 98.6 F Pulse Rate 118 H 85 91 H Respiratory Rate 20 20 20 Blood Pressure 139/85 210/89 H 197/88 H Pulse Oximetry 94 L 98 95 03/15/18 04:00 03/15/18 04:31 03/15/18 07:53 Temperature 97.7 F 98.8 F Pulse Rate 101 H 102 H 102 H Respiratory Rate 22 22 Blood Pressure 223/101 H 181/84 H Pulse Oximetry 98 98 03/15/18 09:50 03/15/18 11:16 Temperature 98.2 F Pulse Rate 60 86 Respiratory Rate 18 Blood Pressure 191/112 H Pulse Oximetry 95 Intake & Output 03/14/18 03/15/18 03/15/18 18:59 06:59 18:59 Intake Total 565.4 / 565.4 1120.8 / 1120.8 200 / 200 Balance 565.4 / 565.4 1120.8 / 1120.8 200 / 200 Intake: IV 565.4 / 565.4 880.8 / 880.8 200 / 200 Zovirax Inj 770 MG In NS Inj 165.4 / 165.4 330.8 / 330.8 150 ML @ 165.4 mls/hr IV.SIG Q8H [facility] Rx#:[id number] Ampicillin Inj 1,000 MG In NS 100 / 100 300 / 300 100 / 100 Inj 100 ML @ 400 mls/hr IV.SIG Q4H [facility] Rx#:[id number] Zosyn 3.375 GM Premix 50 ML @ 50 / 50 100 mls/hr IV.SIG Q6H [facility] Rx#: [id number] Vancomycin Inj 1,000 MG In NS 250 / 250 250 / 250 Inj 250 ML @ 250 mls/hr IV.SIG Q12H [facility] Rx#:[id number] Rocephin Inj 2,000 MG In NS Inj 100 / 100 100 ML @ 200 mls/hr IV.SIG Q12H [facility] Rx#:[id number] Oral 240 / 240 Other: # Voids 1 # Incontinent Voids 1 Mental Status Examination Appearance: Appropriate Consciousness: Alert Orientation: Person Speech: Unremarkable Language: Adequate Fund of Knowledge: Poor Memory: Impaired Mood: Appropriate Affect: Appropriate Thought Process & Associations: Loose associations, Circumstantial Hallucination Type: None Delusion Type: None Suicidal Ideation: No Suicidal Plan: No Suicidal Intention: No Homicidal Ideation: No Homicidal Plan: No Homicidal Intention: No Insight: Poor Judgment: Poor Assessment and Plan - Plan Plan: On psychiatric evaluation patient is calm, superficially cooperative, does not present any acute agitation or aggressive behavior. Unable to provide meaningful and reliable information for this assessment due to evidence of cognitive impairment that seems to be secondary to dementia. Delirium also needs to be carefully ruled out. He denies previous psychiatric history, denies depressive symptoms, he denies anxiety, he denies suicidal and homicidal ideation, denies visual and auditory hallucinations. Patient is unable to tell me the reason to be in the hospital. Patient does not meet criteria for involuntary psychiatric admission. The Ferro act will be lifted. Patient evidently does not have decision-making capacity to participate medical decisions at the moment. Consult palliative care to help with goals of care and also with discharge planning. Haldol 1-2 mg every 8 hours as needed aggressive behavior and agitation can be used. Hold if QTC is over 460. Consult appreciated Justification for Continued Inpatient Stay: Patient does not meet criteria for involuntary psychiatric admission. Ferro act will be lifted
[2018-03-15] MEDS ORDERED: MethylPREDNISolone Sod Suc Inj 1,000 MG in Dextrose 5% in Water Inj 100 ML IV.SIG ONE ×2 (14:00)
[2018-03-15 14:26] LABS: Anti-Nuclear Antibody Screen Neg (Neg)
[2018-03-15] MEDS: Potassium Chlor 20 mEq Premix 20 MEQ/100 ML PIGGYBACK IV.SIG SCH ×2 (16:37→19:33)
[2018-03-16] MEDS: Sod Chloride 0.9% Inj 1,000 ML IV.CONT SCH ×2 (03:33→12:14)
[2018-03-16] MEDS: SODIUM CHLOR 0.9% IV.SIG SCH ×3 (04:17→21:02)
[2018-03-16] MEDS: ACYCLOVIR IV.SIG SCH ×3 (04:17→21:02)
[2018-03-16] MEDS: Lisinopril 20 MG Tablet PO SCH (08:36)
[2018-03-16] MEDS: amLODIPine 10 MG Tablet PO SCH (08:36)
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
[2018-03-16 09:40] LABS: Hematocrit 39.9 % (39.0-51.0); Hemoglobin 13.7 gm/dL (13.0-17.0); Mean Corpuscular HGB Conc 34.3 % (32.0-36.0); Mean Corpuscular Volume 90.5 fL (80.0-100.0); Mean Platelet Volume 9.6 fL (7.0-11.0); Platelet Count 255 th/mm3 (150-450); Red Blood Count 4.41 mil/mm3 (4.50-5.90); Red Cell Distribution Width 14.3 % (11.6-17.2); White Blood Count 11.2 th/mm3 (4.0-11.0)
[2018-03-16 10:06] LABS: Calcium 8.5 mg/dL (8.5-10.1); Carbon Dioxide 19.4 meq/L (21.0-32.0); Potassium 3.5 meq/L (3.5-5.1)
[2018-03-16 10:24] LABS: Eosinophils 1 % (0-4); Lymphocytes 1 % (9-44); Monocytes 2 % (0-8)
[2018-03-16 10:25] LABS: Ovalocytes 1+; Platelet Estimate Normal (Normal); Platelet Morphology Normal (Normal)
--- NOTE | 2018-03-16 11:29 | P.PNNEU ---
Subjective Active Medications: Active Medications Acetaminophen (Tylenol) 650 mg PO Q4H PRN PRN Reason: Temp > 100.4 Al Hydroxide/Mg Hydroxide (Milk Of Magnesia Liq) 30 ml PO Q12H PRN PRN Reason: Mild Constipation Amlodipine Besylate (Norvasc) 10 mg PO DAILY [facility] Last Admin: 03/16/18 08:36 Dose: 10 mg Bisacodyl (Dulcolax Supp) 10 mg RECTAL DAILY PRN PRN Reason: SEVERE CONSITIPATION Enalaprilat (Vasotec Inj) 2.5 mg IV.PUSH Q6H PRN PRN Reason: SBP>160, DBP>90 Last Admin: 03/15/18 11:29 Dose: 2.5 mg Haloperidol Lactate (Haldol Inj) 2 mg IM Q6H PRN PRN Reason: AGITATION Hydralazine HCl (Apresoline Inj) 10 mg IV.PUSH Q4H PRN PRN Reason: SBP> OR = 180, DBP> OR = 100 Sodium Chloride (Ns Inj) 1,000 mls @ 100 mls/hr IV.CONT .Q10H [facility] Last Admin: 03/16/18 03:33 Dose: Not Given Acyclovir Sodium 770 mg/ (Sodium Chloride) 165.4 mls @ 165.4 mls/hr IV.SIG Q8H [facility] Last Infusion: 03/16/18 05:19 Dose: Infused Ceftriaxone Sodium 2,000 mg/ (Sodium Chloride) 100 mls @ 200 mls/hr IV.SIG Q12H [facility] Last Infusion: 03/16/18 06:00 Dose: Infused Ampicillin Sodium 1,000 mg/ (Sodium Chloride) 100 mls @ 400 mls/hr IV.SIG Q4H [facility] Last Admin: 03/16/18 08:40 Dose: 400 mls/hr Vancomycin HCl 1,000 mg/ (Sodium Chloride) 250 mls @ 250 mls/hr IV.SIG Q12H [facility] Last Infusion: 03/16/18 01:00 Dose: Infused Lactulose (Lactulose Liq) 30 ml PO DAILY PRN PRN Reason: SEVERE CONSITIPATION Lisinopril (Prinivil) 20 mg PO DAILY [facility] Last Admin: 03/16/18 08:36 Dose: 20 mg Lorazepam (Ativan Inj) 1 mg IM Q6H PRN PRN Reason: SEVERE AGITATION Last Admin: 03/15/18 16:35 Dose: 1 mg Metoprolol Succinate (Toprol Xl) 50 mg PO DAILY [facility] Last Admin: 03/16/18 08:36 Dose: 50 mg Ondansetron HCl (Zofran Inj) 4 mg IV.PUSH Q6H PRN PRN Reason: NAUSEA OR VOMITING Pharmacy Profile Note (Vancomycin Consult Pharmacy) 1 each OTHER UNSCH PRN PRN Reason: Pharmacy to dose Sennosides (Senokot) 17.2 mg PO Q12H PRN PRN Reason: Moderate Constipation Sodium Chloride (Ns Flush) 2 ml IV.FLUSH BID [facility] Last Admin: 03/16/18 08:40 Dose: 2 ml Sodium Chloride (Ns Flush) 2 ml IV.FLUSH PRN PRN PRN Reason: FLUSH AFTER USING IV ACCESS Allergies/Adverse Reactions: Allergies Allergy/AdvReac Type Severity Reaction Status Date / Time No Known Allergies Allergy Verified 03/13/18 01:56 Physical Exam Vital signs: Vital Signs 03/15/18 16:00 03/15/18 20:00 03/16/18 00:00 Temperature 98.0 F 98.1 F 97.7 F Pulse Rate 133 H 72 87 Respiratory Rate 19 18 18 Blood Pressure 181/89 H 163/77 H 181/86 H Pulse Oximetry 99 98 97 03/16/18 04:00 03/16/18 04:07 03/16/18 08:00 Temperature 98 F 97.9 F Pulse Rate 88 65 119 H Respiratory Rate 18 20 Blood Pressure 177/84 H 184/88 H Pulse Oximetry 97 96 Intake & Output 03/15/18 03/16/18 03/16/18 18:59 06:59 18:59 Intake Total 1251.4 / 1251.4 2080.8 / 2080.8 Balance 1251.4 / 1251.4 2080.8 / 2080.8 Weight 81 kg Intake: IV 1131.4 / 1131.4 2080.8 / 2080.8 NS Inj 1,000 ML @ 100 mls/hr IV 1000 / 1000 .CONT .Q10H [facility] Rx#:[id number] Zovirax Inj 770 MG In NS Inj 165.4 / 165.4 330.8 / 330.8 150 ML @ 165.4 mls/hr IV.SIG Q8H [facility] Rx#:[id number] Ampicillin Inj 1,000 MG In NS 300 / 300 300 / 300 Inj 100 ML @ 400 mls/hr IV.SIG Q4H [facility] Rx#:[id number] SoluMEDROL Inj 1,000 MG In D5W 116 / 116 Inj 100 ML @ 116 mls/hr IV.SIG ONCE ONE Rx#:[id number] KCl 20 mEq Premix Inj 20 meq In 100 / 100 100 / 100 100 ml @ 50 mls/hr IV.SIG Q2H [facility] Rx#:[id number] Vancomycin Inj 1,000 MG In NS 250 / 250 250 / 250 Inj 250 ML @ 250 mls/hr IV.SIG Q12H [facility] Rx#:[id number] Rocephin Inj 2,000 MG In NS Inj 200 / 200 100 / 100 100 ML @ 200 mls/hr IV.SIG Q12H [facility] Rx#:[id number] Oral 120 / 120 0 / 0 Other: # Voids 7 # Incontinent Voids 2 # Bowel Movements 0 Narrative: awake follows some commands still encephalopathic moves ble well minnie Objective Laboratory Results - last 24 hr 03/13/18 03/15/18 03/16/18 19:29 11:30 09:10 WBC 11.2 H RBC 4.41 L Hgb 13.7 Hct 39.9 MCV 90.5 MCH 31.0 MCHC 34.3 RDW 14.3 Plt Count 255 MPV 9.6 Prelim Diff (Auto) Manual diff required WBC Differential Manual diff final Seg Neuts % (Manual) 95 H Band Neuts % (Manual) 1 Lymphocytes % (Manual) 1 L Monocytes % (Manual) 2 Eosinophils % (Manual) 1 Abs Neuts (Manual) 10.8 H Differential Comment . Platelet Estimate Normal Platelet Morphology Normal Ovalocytes 1+ H Sodium 143 Potassium 3.0 L Chloride 108 H Carbon Dioxide 24.9 Anion Gap 10 BUN 7 Creatinine 1.02 Estimated GFR 88 L Random Glucose 143 H Calcium 8.2 L Vancomycin Trough 14.4 H RAFA Screen Neg 03/16/18 09:15 WBC RBC Hgb Hct MCV MCH MCHC RDW Plt Count MPV Prelim Diff (Auto) WBC Differential Seg Neuts % (Manual) Band Neuts % (Manual) Lymphocytes % (Manual) Monocytes % (Manual) Eosinophils % (Manual) Abs Neuts (Manual) Differential Comment Platelet Estimate Platelet Morphology Ovalocytes Sodium 142 Potassium 3.5 Chloride 110 H Carbon Dioxide 19.4 L Anion Gap 13 BUN 14 Creatinine 1.09 Estimated GFR 82 L Random Glucose 158 H Calcium 8.5 Vancomycin Trough RAFA Screen Microbiology 03/13/18 03:10 Aerobic Blood Culture - Preliminary Blood - Peripheral No growth in 3 days Anaerobic Blood Culture - Preliminary Staphylococcus coag negative 03/13/18 03:08 Aerobic Blood Culture - Preliminary Blood - Peripheral No growth in 3 days Anaerobic Blood Culture - Preliminary No growth in 3 days 03/13/18 03:15 Urine Culture - Final Clean Catch Urine No growth in 48 hours Review/Management - Review/Management Plan: imp improved mri and eeg neg check LP have daughter call me today 03/15/18 encephalopathic he needs LP medically necessary i [facility] med team rec 1 gm solumedrol and LP they are working on it watch renal fxt on acyclovir unclear if underlying mass 03/16/18 still on abt one blood cx positive his medical care is suffering due to not had LP yet if he cannot make his own medical decisions per psych then LP needs to be done under some sedation it is in his best medical interests
[2018-03-16] MEDS: Vancomycin Inj 1,000 MG in Sodium Chlor 0.9% Inj 250 ML IV.SIG SCH ×2 (12:15→23:07)
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
[2018-03-16] MEDS ORDERED: Lisinopril 20 MG Tablet PO ONE (13:00)
--- NOTE | 2018-03-16 15:57 | P.RAD ---
Post Procedure Progress Note - Pre Procedure Diagnosis (1) Acute encephalopathy - Post Procedure Diagnosis (1) Acute encephalopathy - Procedure Information Procedure Date: 03/16/18 Supervising Radiologist: Andi Stein MD Anesthesia: Local - Plan of Activity Patient to Unit: Nursing Unit Patient Condition: Fair See PACS Report for procedural detail/treatment. Spinal Procedure Lumbar Puncture L2-L3 Fluid Removal (CCs): 10 Fluid Description: Clear
[2018-03-16 16:50] LABS: Neutrophils,CSF 0 %; RBC on Tube 1 106 /mm3; RBC on Tube 4 0 /mm3
[2018-03-17] MEDS: ACYCLOVIR IV.SIG SCH ×3 (03:55→20:35)
[2018-03-17] MEDS: SODIUM CHLOR 0.9% IV.SIG SCH ×3 (03:55→20:35)
[2018-03-17] MEDS: Sod Chloride 0.9% Inj 1,000 ML IV.CONT SCH ×2 (03:57→09:05)
[2018-03-17] MEDS: amLODIPine 10 MG Tablet PO SCH (09:03)
[2018-03-17] MEDS: Lisinopril 20 MG Tablet PO SCH (09:03)
--- NOTE | 2018-03-17 10:38 | P.PNNEU ---
Subjective Active Medications: Active Medications Acetaminophen (Tylenol) 650 mg PO Q4H PRN PRN Reason: Temp > 100.4 Al Hydroxide/Mg Hydroxide (Milk Of Magnesia Liq) 30 ml PO Q12H PRN PRN Reason: Mild Constipation Amlodipine Besylate (Norvasc) 10 mg PO DAILY [facility] Last Admin: 03/17/18 09:03 Dose: 10 mg Bisacodyl (Dulcolax Supp) 10 mg RECTAL DAILY PRN PRN Reason: SEVERE CONSITIPATION Enalaprilat (Vasotec Inj) 2.5 mg IV.PUSH Q6H PRN PRN Reason: SBP>160, DBP>90 Last Admin: 03/16/18 17:23 Dose: 2.5 mg Haloperidol Lactate (Haldol Inj) 2 mg IM Q6H PRN PRN Reason: AGITATION Hydralazine HCl (Apresoline Inj) 10 mg IV.PUSH Q4H PRN PRN Reason: SBP> OR = 180, DBP> OR = 100 Sodium Chloride (Ns Inj) 1,000 mls @ 100 mls/hr IV.CONT .Q10H [facility] Last Admin: 03/17/18 09:05 Dose: 100 mls/hr Acyclovir Sodium 770 mg/ (Sodium Chloride) 165.4 mls @ 165.4 mls/hr IV.SIG Q8H [facility] Last Infusion: 03/17/18 04:56 Dose: Infused Methylprednisolone Sodium (Succinate 1,000 mg/ Dextrose) 116 mls @ 216 mls/hr IV.SIG ONCE ONE Stop: 03/17/18 11:07 Lactulose (Lactulose Liq) 30 ml PO DAILY PRN PRN Reason: SEVERE CONSITIPATION Lisinopril (Prinivil) 40 mg PO DAILY [facility] Last Admin: 03/17/18 09:03 Dose: 40 mg Lorazepam (Ativan Inj) 1 mg IM Q6H PRN PRN Reason: SEVERE AGITATION Last Admin: 03/16/18 17:29 Dose: 1 mg Metoprolol Succinate (Toprol Xl) 50 mg PO DAILY [facility] Last Admin: 03/17/18 09:03 Dose: 50 mg Ondansetron HCl (Zofran Inj) 4 mg IV.PUSH Q6H PRN PRN Reason: NAUSEA OR VOMITING Pharmacy Profile Note (Vancomycin Consult Pharmacy) 1 each OTHER UNSCH PRN PRN Reason: Pharmacy to dose Sennosides (Senokot) 17.2 mg PO Q12H PRN PRN Reason: Moderate Constipation Sodium Chloride (Ns Flush) 2 ml IV.FLUSH BID [facility] Last Admin: 03/16/18 22:11 Dose: Not Given Sodium Chloride (Ns Flush) 2 ml IV.FLUSH PRN PRN PRN Reason: FLUSH AFTER USING IV ACCESS Allergies/Adverse Reactions: Allergies Allergy/AdvReac Type Severity Reaction Status Date / Time No Known Allergies Allergy Verified 03/13/18 01:56 Physical Exam Vital signs: Vital Signs 03/16/18 12:00 03/16/18 16:00 03/16/18 20:00 Temperature 97.8 F 97.6 F 98.2 F Pulse Rate 92 H 95 H 71 Respiratory Rate 20 21 20 Blood Pressure 174/86 H 168/86 H 182/77 H Pulse Oximetry 95 96 98 03/17/18 00:00 03/17/18 04:00 03/17/18 08:00 Temperature 97.8 F 98.8 F 97.7 F Pulse Rate 96 H 101 H 86 Respiratory Rate 20 20 20 Blood Pressure 174/77 H 185/86 H 166/77 H Pulse Oximetry 100 98 100 Intake & Output 03/16/18 03/17/18 03/17/18 18:59 06:59 18:59 Intake Total 1715.4 / 1715.4 1830.8 / 1830.8 300 / 300 Balance 1715.4 / 1715.4 1830.8 / 1830.8 300 / 300 Weight 84.9 kg Intake: IV 1715.4 / 1715.4 1780.8 / 1780.8 300 / 300 NS Inj 1,000 ML @ 100 mls/hr IV 1000 / 1000 700 / 700 300 / 300 .CONT .Q10H [facility] Rx#:[id number] Zovirax Inj 770 MG In NS Inj 165.4 / 165.4 330.8 / 330.8 150 ML @ 165.4 mls/hr IV.SIG Q8H [facility] Rx#:[id number] Ampicillin Inj 1,000 MG In NS 300 / 300 300 / 300 Inj 100 ML @ 400 mls/hr IV.SIG Q4H [facility] Rx#:[id number] Vancomycin Inj 1,000 MG In NS 250 / 250 250 / 250 Inj 250 ML @ 250 mls/hr IV.SIG Q12H [facility] Rx#:[id number] Rocephin Inj 2,000 MG In NS Inj 200 / 200 100 ML @ 200 mls/hr IV.SIG Q12H [facility] Rx#:[id number] Oral 50 / 50 Other: # Incontinent Voids 2 # Urine Diapers 3 Narrative: still encephalopathic awake no change trouble articulating what he wants to say can count fingers Objective Laboratory Results - last 24 hr 03/16/18 03/16/18 03/16/18 15:53 15:53 15:53 CSF Volume (1) 2.9 CSF Supernat Color (1) Clear CSF Gross Blood (1) 0 CSF WBC (1) 0 CSF RBC (1) 106 H CSF Volume (2) 3.8 CSF Supernat Color (2) Clear CSF Gross Blood (2) 0 CSF Volume (3) 2.7 CSF Supernat Color (3) Clear CSF Gross Blood (3) 0 CSF Volume (4) 3.8 CSF Supernat Color (4) Clear CSF Gross Blood (4) 0 CSF WBC (4) 0 CSF RBC (4) 0 CSF Neutrophils % 0 CSF Glucose 106 H CSF Total Protein 03/16/18 15:53 CSF Volume (1) CSF Supernat Color (1) CSF Gross Blood (1) CSF WBC (1) CSF RBC (1) CSF Volume (2) CSF Supernat Color (2) CSF Gross Blood (2) CSF Volume (3) CSF Supernat Color (3) CSF Gross Blood (3) CSF Volume (4) CSF Supernat Color (4) CSF Gross Blood (4) CSF WBC (4) CSF RBC (4) CSF Neutrophils % CSF Glucose CSF Total Protein 35.8 Microbiology 03/16/18 15:53 Gram Stain - Final Lumbar Puncture CSF Culture - Preliminary No growth in 24 hours 03/13/18 03:10 Aerobic Blood Culture - Preliminary Blood - Peripheral No growth in 3 days Anaerobic Blood Culture - Preliminary Staphylococcus coag negative 03/13/18 03:08 Aerobic Blood Culture - Preliminary Blood - Peripheral No growth in 3 days Anaerobic Blood Culture - Preliminary No growth in 3 days Review/Management - Review/Management Plan: imp improved mri and eeg neg check LP have daughter call me today 03/15/18 encephalopathic he needs LP medically necessary i dw med team rec 1 gm solumedrol and LP they are working on it watch renal fxt on acyclovir unclear if underlying mass 03/16/18 still on abt one blood cx positive his medical care is suffering due to not had LP yet if he cannot make his own medical decisions per psych then LP needs to be done under some sedation it is in his best medical interests 03/17/18 LP neg bp up i have dced his abt x acuyclovir will wait for the hsv pcr try solumedrol oob ok
[2018-03-17 10:51] LABS: Baso % (Auto) 0.1 % (0.0-2.0); Hematocrit 39.2 % (39.0-51.0); Hemoglobin 13.7 gm/dL (13.0-17.0); Lymph # (Auto) 0.7 th/mm3 (1.0-4.8); Lymph % (Auto) 4.5 % (9.0-44.0); Mean Corpuscular HGB Conc 34.9 % (32.0-36.0); Mean Corpuscular Hemoglobin 31.1 pg (27.0-34.0); Mean Corpuscular Volume 89.2 fL (80.0-100.0); Mean Platelet Volume 8.7 fL (7.0-11.0); Mono # (Auto) 0.6 th/mm3 (0.0-0.9); Mono % (Auto) 3.9 % (0.0-8.0); Neut # (Auto) 13.9 th/mm3 (1.8-7.7); Neut % (Auto) 91.5 % (16.0-70.0); Platelet Count 228 th/mm3 (150-450); Red Cell Distribution Width 14.2 % (11.6-17.2); White Blood Count 15.2 th/mm3 (4.0-11.0)
--- NOTE | 2018-03-17 11:07 | P.PNIM ---
Subjective Interval history: No acute changes overnight. No fevers per nursing staff. Patient remains confused and has difficulty articulating and expressing himself. Physical Exam Vital signs: Last Vital Signs Temp 97.7 F 03/17/18 08:00 Pulse 86 03/17/18 08:00 Resp 20 03/17/18 08:00 BP 166/77 H 03/17/18 08:00 Pulse Ox 100 03/17/18 08:00 Intake & Output 03/15/18 03/16/18 03/17/18 03/18/18 06:59 06:59 06:59 06:59 Intake Total 1686.2 / 1686.2 3332.2 / 3332.2 3546.2 / 3546.2 300 / 300 Balance 1686.2 / 1686.2 3332.2 / 3332.2 3546.2 / 3546.2 300 / 300 Weight 81 kg 84.9 kg Narrative: GENERAL: This is a well-nourished, well-developed patient, in no apparent distress laying in bed with four-point restraints.. CARDIOVASCULAR: Regular rate and rhythm RESPIRATORY: Clear to auscultation. Breath sounds equal bilaterally. No wheezes , rales, or rhonchi. GASTROINTESTINAL: Abdomen soft, non-tender, nondistended. Normal active bowel sounds MUSCULOSKELETAL: Extremities without clubbing, cyanosis, or edema. NEURO: Awake and alert to self but not to place ,time, situation, no agitation, confused, poor insight. Does move bilateral upper and lower extremities spontaneously and follows directions. Speech mumbled but understandable has difficulty expressing himself at times with some mild stuttering. Results Labs CBC & Chem 7: 03/17/18 10:05 03/16/18 09:15 Labs: Microbiology 03/16/18 09:10 Blood - Peripheral Aerobic Blood Culture - Preliminary No growth in 1 day 03/16/18 09:10 Blood - Peripheral Anaerobic Blood Culture - Preliminary No growth in 1 day 03/16/18 09:15 Blood - Peripheral Aerobic Blood Culture - Preliminary No growth in 1 day 03/16/18 09:15 Blood - Peripheral Anaerobic Blood Culture - Preliminary No growth in 1 day 03/13/18 03:10 Blood - Peripheral Aerobic Blood Culture - Preliminary No growth in 4 days 03/13/18 03:10 Blood - Peripheral Anaerobic Blood Culture - Preliminary Staphylococcus coag negative 03/13/18 03:08 Blood - Peripheral Aerobic Blood Culture - Preliminary No growth in 4 days 03/13/18 03:08 Blood - Peripheral Anaerobic Blood Culture - Preliminary No growth in 4 days 03/16/18 15:53 Lumbar Puncture Gram Stain - Final 03/16/18 15:53 Lumbar Puncture CSF Culture - Preliminary No growth in 24 hours Procedures Procedures: 03/17 lumbar puncture with radiology Assessment and Plan (1) Hypertension: Code(s): I10 - Essential (primary) hypertension Status: Acute (2) Abnormal ABGs: Code(s): R79.81 - Abnormal blood-gas level Status: Acute (3) Acute encephalopathy: Code(s): G93.40 - Encephalopathy, unspecified Status: Acute Plan 67-year-old male with history of hypertension presents with AMS via EVAC under Ferro act after being found by police department secretary on the side of the road in a vehicle that was disabled due to running out of gas, per ER report. Reportedly patient drove his car here from [place]. Acute encephalopathy/altered mental status: Unclear etiology. Concern for encephalitis. -Head CT and brain MRI reviewed and unremarkable -Chest CTA negative for PE, no effusions, no congestive failure, no emphysema -Labs mostly unremarkable, ammonia wnl, no CO2 retention, BG wnl, UDS negative -No obvious signs of infection, UA, urine culture, and CXR negative -Blood cultures with no growth to date -EEG reviewed and unremarkable -Continue on empiric IV Vanco/Ampicillin/Rocephin. Acyclovir has been discontinued per neurology, await HSV PCR; infectious disease also following patient. -Neurology consulted, appreciate assistance -Psychiatry Dr. Julio lifted Ferro act and deemed patient lacked capacity for decision-making, -Appreciate palliative care assisting with designating sign as a healthcare proxy and establishing goals of care who has consented for a lumbar puncture which was completed yesterday by radiology. CSF studies currently pending -soft restraints as needed, Haldol prn agitation Increase in WBC due to Solu-Medrol given yesterday. RAFA screen negative, rheumatoid arthritis negative, IV Solu-Medrol to be continued per neurology Accelerated Hypertension: consider hypertensive encephalopathy possibly contributing to above? -BP as high as 190/88 -Continue on toprol XL 50mg qd, norvasc 10mg, and lisinopril 40 mg p.o. daily , add HCTZ to the regimen today -IV Vasotec prn -Monitor BP, adjust antihypertensives as needed Hypokalemia: Resolved and repleted DVT Prophylaxis: teds/SCDs; initiate heparin subcu _ (1) Hypertension Qualifiers: Hypertension type:
[2018-03-17 11:15] LABS: ABG Base Excess 0.4 mmol/L (-2-2); ABG PCO2 34 mmHg (38-42); ABG PO2 102 mmHg (61-120)
[2018-03-17 11:15] LABS: Anion Gap 9 meq/L (5-15); Blood Urea Nitrogen 14 mg/dL (7-18); Calcium 8.5 mg/dL (8.5-10.1); Carbon Dioxide 25.2 meq/L (21.0-32.0); Chloride 109 meq/L (98-107); Glomerular Filtration Rate Greater Than 89 mL/min (>89); Glucose,Random 130 mg/dL (74-106); Potassium 3.4 meq/L (3.5-5.1); Sodium 143 meq/L (136-145)
--- NOTE | 2018-03-17 12:58 | IR ---
EXAM DATE: 03/16/2018 4:13 PM EST AGE/SEX: 67 years / Male INDICATIONS: Patient with a history of altered mental status. CLINICAL DATA: This is the patient's initial encounter. Patient reports that signs and symptoms have been present for 3 days and indicates a pain score of 0/10. MEDICAL/SURGICAL HISTORY: Hypertension. None. COMPARISON: No prior exams available for comparison. FLUORO TIME (min): 1.3 IMAGE SERIES: 1 ACCESS SITE: L3-4 LUMBAR PUNCTURE TIME: 1552 hours FLUID: Total volume of 13 cc of clear fluid was removed. Fluid was sent to lab for ordered studies. ; . . PROCEDURE: 1. Fluoroscopic guided lumbar puncture. The risks, benefits and alternatives to the procedure were explained and verbal and written consent w as obtained. The site was prepped in sterile fashion. Full sterile technique was used, including ca p, mask, sterile gloves and gown and a large sterile sheet. Hand hygiene and 2% chlorhexidine and/or betadine/alcohol prep was utilized per protocol for cutaneous antisepsis. The skin and subcutaneous tissues were infiltrated with local anesthetic solution. With fluoroscopic guidance the lumbar thecal sac was punctured at the level above. The fluid describ ed above was removed without difficulty. The patient tolerated the procedure well and there were no complications. CONCLUSION: 1. Uncomplicated fluoroscopically guided lumbar puncture. Electronically signed by: Andi Stein MD Board Certified Radiologist 03/17/2018 12:56 PM EST
[2018-03-17] MEDS ORDERED: MethylPREDNISolone Sod Suc Inj 1,000 MG in Dextrose 5% in Water Inj 100 ML IV.SIG ONE ×2 (13:00)
[2018-03-17] MEDS: hydroCHLOROthiazide 25 MG Tablet PO SCH (13:13)
--- NOTE | 2018-03-17 13:26 | P.PNID ---
Subjective Remarks: The patient is a 67 year old male who presents to the [facility] emergency department with a history of being found by a [place] patrol police on the side of the road in a vehicle that was disabled due to running out of gas in the afternoon on 03/12. The patient was noted to be confused, having difficulty remembering his location and was deemed unable to care for himself, therefore he was placed under a Ferro act and taken to the [facility], [place]. He was initially calm and cooperative, but later became agitated and began to fight with the staff. Patient is being evaluated by neurology. MRI brain is negative. CTA chest negative. He has been afebrile. WBC is normal. Drug screen negative. CMP ok. ABG he is alkalotic. Patient has also been evaluated by psychiatry and deemed not capacitated to make medical decisions. He is being evaluated for LP, per neurology recommendations. He has been on Abx for possible FI[employer] infection and on Ampicillin, Vancomycin, Rocephin and Acyclovir. His ESR and CRP are both elevated. At the time of my exam, he remains encephalopathic. he is mumbling when I asked him questions. He is in 4 point restraints. He is afebrile. He had BC done in the ED, and one of the 2 BC has GPC in clusters Infectious disease consultation has been requested to assist with evaluation and treatment of bacteremia. Notes reviewed No fever LP negative One BC with Coag Neg Staph C/W contaminant Remains encephalopathic Abx D/C by neurology except Acyclovir On high dose solumedrol Antibiotics: Acyclovir Lines: PIV Past Medical History: Hypertension Allergies/Adverse Reactions: Allergies No Known Allergies Allergy (Verified 03/13/18 01:56) Objective Vital Signs 03/16/18 16:00 03/16/18 20:00 03/17/18 00:00 Temperature 97.6 F 98.2 F 97.8 F Pulse Rate 95 H 71 96 H Respiratory Rate 21 20 20 Blood Pressure 168/86 H 182/77 H 174/77 H Pulse Oximetry 96 98 100 03/17/18 04:00 03/17/18 08:00 03/17/18 12:00 Temperature 98.8 F 97.7 F 98.0 F Pulse Rate 101 H 86 69 Respiratory Rate 20 20 20 Blood Pressure 185/86 H 166/77 H 170/79 H Pulse Oximetry 98 100 98 Intake & Output 03/16/18 03/17/18 03/17/18 18:59 06:59 18:59 Intake Total 1715.4 / 1715.4 1830.8 / 1830.8 300 / 300 Balance 1715.4 / 1715.4 1830.8 / 1830.8 300 / 300 Weight 84.9 kg Intake: IV 1715.4 / 1715.4 1780.8 / 1780.8 300 / 300 NS Inj 1,000 ML @ 100 mls/hr IV 1000 / 1000 700 / 700 300 / 300 .CONT .Q10H [facility] Rx#:[id number] Zovirax Inj 770 MG In NS Inj 165.4 / 165.4 330.8 / 330.8 150 ML @ 165.4 mls/hr IV.SIG Q8H [facility] Rx#:[id number] Ampicillin Inj 1,000 MG In NS 300 / 300 300 / 300 Inj 100 ML @ 400 mls/hr IV.SIG Q4H [facility] Rx#:[id number] Vancomycin Inj 1,000 MG In NS 250 / 250 250 / 250 Inj 250 ML @ 250 mls/hr IV.SIG Q12H [facility] Rx#:[id number] Rocephin Inj 2,000 MG In NS Inj 200 / 200 100 ML @ 200 mls/hr IV.SIG Q12H [facility] Rx#:[id number] Oral 50 / 50 Other: # Incontinent Voids 2 # Urine Diapers 3 03/13/18 03:10 Blood - Peripheral Aerobic Blood Culture - Preliminary No growth in 4 days 03/13/18 03:10 Blood - Peripheral Anaerobic Blood Culture - Preliminary Staphylococcus coag negative 03/16/18 09:10 Blood - Peripheral Aerobic Blood Culture - Preliminary No growth in 1 day 03/16/18 09:10 Blood - Peripheral Anaerobic Blood Culture - Preliminary No growth in 1 day 03/16/18 09:15 Blood - Peripheral Aerobic Blood Culture - Preliminary No growth in 1 day 03/16/18 09:15 Blood - Peripheral Anaerobic Blood Culture - Preliminary No growth in 1 day 03/13/18 03:08 Blood - Peripheral Aerobic Blood Culture - Preliminary No growth in 4 days 03/13/18 03:08 Blood - Peripheral Anaerobic Blood Culture - Preliminary No growth in 4 days 03/16/18 15:53 Lumbar Puncture Gram Stain - Final 03/16/18 15:53 Lumbar Puncture CSF Culture - Preliminary No growth in 24 hours 03/16/18 15:53 Cerebral Spinal Fluid - Lumbar Puncture Acid Fast Bacilli Smear - Pending 03/16/18 15:53 Cerebral Spinal Fluid - Lumbar Puncture Mycobacterial Culture - Pending 03/13/18 03:15 Clean Catch Urine Urine Culture - Final No growth in 48 hours Lab - Hematology Results 03/16/18 03/17/18 09:10 10:05 WBC 11.2 H 15.2 H RBC 4.41 L 4.40 L Hgb 13.7 13.7 Hct 39.9 39.2 MCV 90.5 89.2 MCH 31.0 31.1 MCHC 34.3 34.9 RDW 14.3 14.2 Plt Count 255 228 MPV 9.6 8.7 Prelim Diff (Auto) Manual diff required Neut % (Auto) 91.5 H Lymph % (Auto) 4.5 L Pratt % (Auto) 3.9 Eos % (Auto) 0.0 Baso % (Auto) 0.1 Neut # (Auto) 13.9 H Lymph # (Auto) 0.7 L Pratt # (Auto) 0.6 Eos # (Auto) 0.0 Baso # (Auto) 0.0 WBC Differential Manual diff final . Seg Neuts % (Manual) 95 H Band Neuts % (Manual) 1 Lymphocytes % (Manual) 1 L Monocytes % (Manual) 2 Eosinophils % (Manual) 1 Abs Neuts (Manual) 10.8 H Differential Comment . Auto diff final Platelet Estimate Normal Platelet Morphology Normal Ovalocytes 1+ H Lab - Chemistry Results 03/16/18 03/17/18 03/17/18 09:15 10:05 10:05 Sodium 142 143 Potassium 3.5 3.4 L Chloride 110 H 109 H Carbon Dioxide 19.4 L 25.2 Anion Gap 13 9 BUN 14 14 Creatinine 1.09 0.90 Estimated GFR 82 L Greater than 89 Random Glucose 158 H 130 H Calcium 8.5 8.5 Ammonia Less than 10 L Imaging: ITS Impressions Chest CTA 03/13/18 00:00 CONCLUSION: 1. Negative for central pulmonary emboli. 2. There is no pericardial effusion. 3. I don't see evidence for congestive failure. 4. I do not see significant emphysematous changes. Head MRI 03/13/18 00:00 CONCLUSION: 1. Grossly unremarkable MRI of the brain. No definite acute intracranial pathology. Chest X-Ray 03/13/18 01:56 CONCLUSION: No acute cardiopulmonary disease identified. Head CT 03/13/18 01:56 CONCLUSION: No acute intracranial findings. . Lumbar Puncture Fluoroscopy 03/16/18 12:31 CONCLUSION: 1. Uncomplicated fluoroscopically guided lumbar puncture. Physical Exam: GENERAL: awake, mumbling when answering my questions, has 4 point restraints, not in respiratory distress. SKIN: Cool and dry. No generalized rash, no ecchymoses and no evidence of embolic lesions. HEAD: Atraumatic. Normocephalic. No temporal wasting, or tenderness. EYES: [place] conjunctiva. No petechia or hemorrhage. Pupils equal, round and reactive to light. Extraocular movements full and intact. No scleral icterus. No injection or drainage. EARS, NOSE AND THROAT: Nose without bleeding or purulent nasal discharge. Mucous membranes pink and moist. Unable to examine oropharynx. NECK: Trachea midline. Supple and not tender, no meningeal signs. No nuchal rigidity CARDIOVASCULAR: Regular rate and rhythm. No murmurs, rubs or gallops heard RESPIRATORY: Clear to auscultation. Breath sounds equal bilaterally. No rales , wheezing or rhonchi ABDOMEN: Soft, non-tender, nondistended. Bowel sounds present and normoactive. No guarding. No rebound. No organomegaly. EXTREMITIES: No clubbing, cyanosis, or edema. No joint effusion, has good ROM. No calf tenderness. Well perfused and warm. NEUROLOGICAL: Awake, mumbling. No facial asymmetry, pupils equal and reactive. Moving extremities. ?ankle clonus. PSYCHIATRIC: Not following, has restraints LINE: No evidence of infection Assessment and Plan - Plan Impression One (+) BC with Coag Neg Staph C/W contaminant Encephalopathy, etiology? - work-up in progress - LP unremarkable Recommendation Ok to D/C Acyclovir from ID standpoint On high dose steroids Neuro work-up in progress No need to Rx one (+) BC with Coag Neg Staph I will be available prn Please reconsult if with any new ID issue or question
[2018-03-17] MEDS: Acetaminophen 325 MG Tablet PO PRN (16:35)
[2018-03-17] MEDS ORDERED: Heparin - SQ 10,000 UNITS/ML Vial SQ SCH (21:00)
[2018-03-18] MEDS: SODIUM CHLOR 0.9% IV.SIG SCH ×3 (06:01→20:16)
[2018-03-18] MEDS: ACYCLOVIR IV.SIG SCH ×3 (06:01→20:16)
--- NOTE | 2018-03-18 08:11 | P.PNNEU ---
Subjective Active Medications: Active Medications Acetaminophen (Tylenol) 650 mg PO Q4H PRN PRN Reason: Temp > 100.4 Last Admin: 03/17/18 16:35 Dose: 650 mg Al Hydroxide/Mg Hydroxide (Milk Of Magnesia Liq) 30 ml PO Q12H PRN PRN Reason: Mild Constipation Amlodipine Besylate (Norvasc) 10 mg PO DAILY [facility] Last Admin: 03/17/18 09:03 Dose: 10 mg Bisacodyl (Dulcolax Supp) 10 mg RECTAL DAILY PRN PRN Reason: SEVERE CONSITIPATION Enalaprilat (Vasotec Inj) 2.5 mg IV.PUSH Q6H PRN PRN Reason: SBP>160, DBP>90 Last Admin: 03/17/18 20:47 Dose: 2.5 mg Haloperidol Lactate (Haldol Inj) 2 mg IM Q6H PRN PRN Reason: AGITATION Last Admin: 03/17/18 22:14 Dose: 2 mg Heparin Sodium (Porcine) (Heparin Inj) 5,000 units SQ Q12HR [facility] Last Admin: 03/17/18 20:35 Dose: 5,000 units Hydralazine HCl (Apresoline Inj) 10 mg IV.PUSH Q4H PRN PRN Reason: SBP> OR = 180, DBP> OR = 100 Hydrochlorothiazide (Hydrodiuril) 25 mg PO DAILY [facility] Last Admin: 03/17/18 13:13 Dose: 25 mg Acyclovir Sodium 770 mg/ (Sodium Chloride) 165.4 mls @ 165.4 mls/hr IV.SIG Q8H [facility] Last Admin: 03/18/18 06:01 Dose: 150 mls/hr Lactulose (Lactulose Liq) 30 ml PO DAILY PRN PRN Reason: SEVERE CONSITIPATION Lisinopril (Prinivil) 40 mg PO DAILY [facility] Last Admin: 03/17/18 09:03 Dose: 40 mg Lorazepam (Ativan Inj) 1 mg IM Q6H PRN PRN Reason: SEVERE AGITATION Last Admin: 03/18/18 00:28 Dose: 1 mg Metoprolol Succinate (Toprol Xl) 50 mg PO DAILY [facility] Last Admin: 03/17/18 09:03 Dose: 50 mg Ondansetron HCl (Zofran Inj) 4 mg IV.PUSH Q6H PRN PRN Reason: NAUSEA OR VOMITING Sennosides (Senokot) 17.2 mg PO Q12H PRN PRN Reason: Moderate Constipation Sodium Chloride (Ns Flush) 2 ml IV.FLUSH BID [facility] Last Admin: 03/17/18 20:36 Dose: 2 ml Sodium Chloride (Ns Flush) 2 ml IV.FLUSH PRN PRN PRN Reason: FLUSH AFTER USING IV ACCESS Allergies/Adverse Reactions: Allergies Allergy/AdvReac Type Severity Reaction Status Date / Time No Known Allergies Allergy Verified 03/13/18 01:56 Physical Exam Vital signs: Vital Signs 03/17/18 12:00 03/17/18 16:00 03/17/18 16:57 Temperature 98.0 F 97.9 F Pulse Rate 66 75 83 Respiratory Rate 20 20 Blood Pressure 170/79 H 152/71 H Pulse Oximetry 98 96 03/17/18 20:00 03/18/18 00:00 03/18/18 04:00 Temperature 98.3 F 98.0 F 98.4 F Pulse Rate 66 114 H 98 H Respiratory Rate 20 22 22 Blood Pressure 196/31 H 154/56 H 145/84 H Pulse Oximetry 100 94 L 99 Intake & Output 03/17/18 03/18/18 03/18/18 18:59 06:59 18:59 Intake Total 1702.4 / 1702.4 385.4 / 385.4 240 / 240 Balance 1702.4 / 1702.4 385.4 / 385.4 240 / 240 Weight 83.8 kg Intake: IV 1131.4 / 1131.4 165.4 / 165.4 NS Inj 1,000 ML @ 100 mls/hr IV 750 / 750 .CONT .Q10H [facility] Rx#:[id number] Zovirax Inj 770 MG In NS Inj 165.4 / 165.4 165.4 / 165.4 150 ML @ 165.4 mls/hr IV.SIG Q8H [facility] Rx#:[id number] Ampicillin Inj 1,000 MG In NS 100 / 100 Inj 100 ML @ 400 mls/hr IV.SIG Q4H [facility] Rx#:[id number] SoluMEDROL Inj 1,000 MG In D5W 116 / 116 Inj 100 ML @ 116 mls/hr IV.SIG ONCE ONE Rx#:[id number] Oral 220 / 220 Oral Supplement 240 / 240 Other 571 / 571 Other: # Voids 3 # Incontinent Voids 1 # Urine Diapers 4 Narrative: no change Objective Laboratory Results - last 24 hr 03/15/18 03/16/18 03/17/18 15:53 15:53 10:05 WBC 15.2 H RBC 4.40 L Hgb 13.7 Hct 39.2 MCV 89.2 MCH 31.1 MCHC 34.9 RDW 14.2 Plt Count 228 MPV 8.7 Neut % (Auto) 91.5 H Lymph % (Auto) 4.5 L [place] % (Auto) 3.9 Eos % (Auto) 0.0 Baso % (Auto) 0.1 Neut # (Auto) 13.9 H Lymph # (Auto) 0.7 L [place] # (Auto) 0.6 Eos # (Auto) 0.0 Baso # (Auto) 0.0 WBC Differential . Differential Comment Auto diff final Puncture Site Patient Temperature O2 Saturation ABG pH ABG pCO2 ABG pO2 ABG HCO3 ABG O2 Content ABG Base Excess ABG Methemoglobin [place] Test Hemoglobin Carboxyhemoglobin O2 Delivery Device Inspired O2 Critical Value Sodium Potassium Chloride Carbon Dioxide Anion Gap BUN Creatinine Estimated GFR Random Glucose Calcium Ammonia CSF Herpes I DNA (PCR) Cancelled CSF Herpes II DNA (PCR) Cancelled CSF N.mening B/E.coli K1 Cancelled CSF N.meningitidis A/Y Cancelled Bacterial Ag Source Cancelled H.influenzae Type B Ag Cancelled N. meningitidis C/W 135 Cancelled Group B Strep Antigen Cancelled S. pneumoniae Antigen Cancelled 03/17/18 03/17/18 03/17/18 10:05 10:05 11:00 WBC RBC Hgb Hct MCV MCH MCHC RDW Plt Count MPV Neut % (Auto) Lymph % (Auto) [place] % (Auto) Eos % (Auto) Baso % (Auto) Neut # (Auto) Lymph # (Auto) [place] # (Auto) Eos # (Auto) Baso # (Auto) WBC Differential Differential Comment Puncture Site Left radial Patient Temperature 98.6 O2 Saturation 96 ABG pH 7.46 H ABG pCO2 34 L ABG pO2 102 ABG HCO3 24 ABG O2 Content 18.2 ABG Base Excess 0.4 ABG Methemoglobin 1.1 [place] Test Present Hemoglobin 13.4 Carboxyhemoglobin 0.9 O2 Delivery Device Ra Inspired O2 21 Critical Value No Sodium 143 Potassium 3.4 L Chloride 109 H Carbon Dioxide 25.2 Anion Gap 9 BUN 14 Creatinine 0.90 Estimated GFR Greater than 89 Random Glucose 130 H Calcium 8.5 Ammonia Less than 10 L CSF Herpes I DNA (PCR) CSF Herpes II DNA (PCR) CSF N.mening B/E.coli K1 CSF N.meningitidis A/Y Bacterial Ag Source H.influenzae Type B Ag N. meningitidis C/W 135 Group B Strep Antigen S. pneumoniae Antigen Microbiology 03/13/18 03:10 Aerobic Blood Culture - Preliminary Blood - Peripheral No growth in 4 days Anaerobic Blood Culture - Preliminary Staphylococcus coag negative 03/16/18 09:10 Aerobic Blood Culture - Preliminary Blood - Peripheral No growth in 1 day Anaerobic Blood Culture - Preliminary No growth in 1 day 03/16/18 09:15 Aerobic Blood Culture - Preliminary Blood - Peripheral No growth in 1 day Anaerobic Blood Culture - Preliminary No growth in 1 day 03/13/18 03:08 Aerobic Blood Culture - Preliminary Blood - Peripheral No growth in 4 days Anaerobic Blood Culture - Preliminary No growth in 4 days 03/16/18 15:53 Gram Stain - Final Lumbar Puncture CSF Culture - Preliminary No growth in 24 hours Review/Management - Review/Management Plan: imp improved mri and eeg neg check LP have daughter call me today 03/15/18 encephalopathic he needs LP medically necessary i dw med team rec 1 gm solumedrol and LP they are working on it watch renal fxt on acyclovir unclear if underlying mass 03/16/18 still on abt one blood cx positive his medical care is suffering due to not had LP yet if he cannot make his own medical decisions per psych then LP needs to be done under some sedation it is in his best medical interests 03/17/18 LP neg bp up i have dced his abt x acuyclovir will wait for the hsv pcr try solumedrol oob ok ----- 03/18/18 no change after steroid he needs to get oob sq hep ok hsv pend namenda started
[2018-03-18 08:58] LABS: Methylmalonic Acid 0.08 nmol/mL (<=0.40)
[2018-03-18 09:23] LABS: Baso % (Auto) 0.1 % (0.0-2.0); Eos % (Auto) 0.3 % (0.0-4.0); Hematocrit 40.2 % (39.0-51.0); Hemoglobin 13.7 gm/dL (13.0-17.0); Lymph # (Auto) 0.4 th/mm3 (1.0-4.8); Lymph % (Auto) 4.3 % (9.0-44.0); Mean Corpuscular HGB Conc 34.1 % (32.0-36.0); Mean Corpuscular Hemoglobin 31.4 pg (27.0-34.0); Mean Platelet Volume 8.8 fL (7.0-11.0); Mono # (Auto) 0.2 th/mm3 (0.0-0.9); Mono % (Auto) 1.7 % (0.0-8.0); Neut # (Auto) 8.8 th/mm3 (1.8-7.7); Neut % (Auto) 93.6 % (16.0-70.0); Platelet Count 256 th/mm3 (150-450); Red Blood Count 4.36 mil/mm3 (4.50-5.90); Red Cell Distribution Width 14.3 % (11.6-17.2); White Blood Count 9.4 th/mm3 (4.0-11.0)
[2018-03-18 09:41] LABS: Calcium 9.5 mg/dL (8.5-10.1); Carbon Dioxide 28.6 meq/L (21.0-32.0); Potassium 3.9 meq/L (3.5-5.1)
[2018-03-18] MEDS: hydroCHLOROthiazide 25 MG Tablet PO SCH (10:07)
[2018-03-18] MEDS: Lisinopril 20 MG Tablet PO SCH (10:07)
[2018-03-18] MEDS: Heparin - SQ 10,000 UNITS/ML Vial SQ SCH ×2 (10:07→20:17)
[2018-03-18] MEDS: amLODIPine 10 MG Tablet PO SCH (10:08)
--- NOTE | 2018-03-18 10:47 | P.PNID ---
Subjective Remarks: The patient is a 67 year old male who presents to the [facility] emergency department with a history of being found by a police records clerk on the side of the road in a vehicle that was disabled due to running out of gas in the afternoon on 03/12. The patient was noted to be confused, having difficulty remembering his location and was deemed unable to care for himself, therefore he was placed under a Ferro act and taken to the [facility]. He was initially calm and cooperative, but later became agitated and began to fight with the staff. Patient is being evaluated by neurology. MRI brain is negative. CTA chest negative. He has been afebrile. WBC is normal. Drug screen negative. CMP ok. ABG he is alkalotic. Patient has also been evaluated by psychiatry and deemed not capacitated to make medical decisions. He is being evaluated for LP, per neurology recommendations. He has been on Abx for possible [employer] infection and on Ampicillin, Vancomycin, Rocephin and Acyclovir. His ESR and CRP are both elevated. At the time of my exam, he remains encephalopathic. he is mumbling when I asked him questions. He is in 4 point restraints. He is afebrile. He had BC done in the ED, and one of the 2 BC has GPC in clusters Infectious disease consultation has been requested to assist with evaluation and treatment of bacteremia. Notes reviewed No fever LP negative One BC with Coag Neg Staph C/W contaminant Remains encephalopathic Abx D/C by neurology except Acyclovir On high dose solumedrol Antibiotics: Acyclovir Lines: PIV Past Medical History: Hypertension Allergies/Adverse Reactions: Allergies No Known Allergies Allergy (Verified 03/13/18 01:56) Objective Vital Signs 03/17/18 12:00 03/17/18 16:00 03/17/18 16:57 Temperature 98.0 F 97.9 F Pulse Rate 66 75 83 Respiratory Rate 20 20 Blood Pressure 170/79 H 152/71 H Pulse Oximetry 98 96 03/17/18 20:00 03/18/18 00:00 03/18/18 04:00 Temperature 98.3 F 98.0 F 98.4 F Pulse Rate 66 114 H 98 H Respiratory Rate 20 22 22 Blood Pressure 196/31 H 154/56 H 145/84 H Pulse Oximetry 100 94 L 99 03/18/18 08:00 Temperature 97.9 F Pulse Rate 92 H Respiratory Rate 18 Blood Pressure 160/62 H Pulse Oximetry 96 Intake & Output 03/17/18 03/18/18 03/18/18 18:59 06:59 18:59 Intake Total 1702.4 / 1702.4 385.4 / 385.4 240 / 240 Balance 1702.4 / 1702.4 385.4 / 385.4 240 / 240 Weight 83.8 kg Intake: IV 1131.4 / 1131.4 165.4 / 165.4 NS Inj 1,000 ML @ 100 mls/hr IV 750 / 750 .CONT .Q10H [facility] Rx#:[id number] Zovirax Inj 770 MG In NS Inj 165.4 / 165.4 165.4 / 165.4 150 ML @ 165.4 mls/hr IV.SIG Q8H [facility] Rx#:[id number] Ampicillin Inj 1,000 MG In NS 100 / 100 Inj 100 ML @ 400 mls/hr IV.SIG Q4H [facility] Rx#:[id number] SoluMEDROL Inj 1,000 MG In D5W 116 / 116 Inj 100 ML @ 116 mls/hr IV.SIG ONCE ONE Rx#:[id number] Oral 220 / 220 Oral Supplement 240 / 240 Other 571 / 571 Other: # Voids 3 # Incontinent Voids 1 # Urine Diapers 4 03/16/18 15:53 Lumbar Puncture Gram Stain - Final 03/16/18 15:53 Lumbar Puncture CSF Culture - Preliminary No growth in 48 hours 03/13/18 03:10 Blood - Peripheral Aerobic Blood Culture - Preliminary No growth in 4 days 03/13/18 03:10 Blood - Peripheral Anaerobic Blood Culture - Preliminary Staphylococcus coag negative 03/16/18 09:10 Blood - Peripheral Aerobic Blood Culture - Preliminary No growth in 1 day 03/16/18 09:10 Blood - Peripheral Anaerobic Blood Culture - Preliminary No growth in 1 day 03/16/18 09:15 Blood - Peripheral Aerobic Blood Culture - Preliminary No growth in 1 day 03/16/18 09:15 Blood - Peripheral Anaerobic Blood Culture - Preliminary No growth in 1 day 03/13/18 03:08 Blood - Peripheral Aerobic Blood Culture - Preliminary No growth in 4 days 03/13/18 03:08 Blood - Peripheral Anaerobic Blood Culture - Preliminary No growth in 4 days 03/16/18 15:53 Cerebral Spinal Fluid - Lumbar Puncture Acid Fast Bacilli Smear - Pending 03/16/18 15:53 Cerebral Spinal Fluid - Lumbar Puncture Mycobacterial Culture - Pending 03/13/18 03:15 Clean Catch Urine Urine Culture - Final No growth in 48 hours Lab - Hematology Results 03/17/18 03/18/18 10:05 08:31 WBC 15.2 H 9.4 RBC 4.40 L 4.36 L Hgb 13.7 13.7 Hct 39.2 40.2 MCV 89.2 92.0 MCH 31.1 31.4 MCHC 34.9 34.1 RDW 14.2 14.3 Plt Count 228 256 MPV 8.7 8.8 Neut % (Auto) 91.5 H 93.6 H Lymph % (Auto) 4.5 L 4.3 L [place] % (Auto) 3.9 1.7 Eos % (Auto) 0.0 0.3 Baso % (Auto) 0.1 0.1 Neut # (Auto) 13.9 H 8.8 H Lymph # (Auto) 0.7 L 0.4 L [place] # (Auto) 0.6 0.2 Eos # (Auto) 0.0 0.0 Baso # (Auto) 0.0 0.0 WBC Differential . . Differential Comment Auto diff final Auto diff final Lab - Chemistry Results 03/13/18 03/17/18 03/17/18 19:29 10:05 10:05 Sodium 143 Potassium 3.4 L Chloride 109 H Carbon Dioxide 25.2 Anion Gap 9 BUN 14 Creatinine 0.90 Estimated GFR Greater than 89 Random Glucose 130 H Calcium 8.5 Ammonia Less than 10 L Thiamine 318 H Methylmalonic Acid 0.08 03/18/18 08:31 Sodium 142 Potassium 3.9 Chloride 104 Carbon Dioxide 28.6 Anion Gap 9 BUN 19 H Creatinine 1.22 Estimated GFR 72 L Random Glucose 167 H Calcium 9.5 D Ammonia Thiamine Methylmalonic Acid Imaging: ITS Impressions Chest CTA 03/13/18 00:00 CONCLUSION: 1. Negative for central pulmonary emboli. 2. There is no pericardial effusion. 3. I don't see evidence for congestive failure. 4. I do not see significant emphysematous changes. Head MRI 03/13/18 00:00 CONCLUSION: 1. Grossly unremarkable MRI of the brain. No definite acute intracranial pathology. Chest X-Ray 03/13/18 01:56 CONCLUSION: No acute cardiopulmonary disease identified. Head CT 03/13/18 01:56 CONCLUSION: No acute intracranial findings. . Lumbar Puncture Fluoroscopy 03/16/18 12:31 CONCLUSION: 1. Uncomplicated fluoroscopically guided lumbar puncture. Physical Exam: GENERAL: awake, mumbling when answering my questions, has 4 point restraints, not in respiratory distress. SKIN: Cool and dry. No generalized rash, no ecchymoses and no evidence of embolic lesions. HEAD: Atraumatic. Normocephalic. No temporal wasting, or tenderness. EYES: [place] conjunctiva. No petechia or hemorrhage. Pupils equal, round and reactive to light. Extraocular movements full and intact. No scleral icterus. No injection or drainage. EARS, NOSE AND THROAT: Nose without bleeding or purulent nasal discharge. Mucous membranes pink and moist. Unable to examine oropharynx. NECK: Trachea midline. Supple and not tender, no meningeal signs. No nuchal rigidity CARDIOVASCULAR: Regular rate and rhythm. No murmurs, rubs or gallops heard RESPIRATORY: Clear to auscultation. Breath sounds equal bilaterally. No rales , wheezing or rhonchi ABDOMEN: Soft, non-tender, nondistended. Bowel sounds present and normoactive. No guarding. No rebound. No organomegaly. EXTREMITIES: No clubbing, cyanosis, or edema. No joint effusion, has good ROM. No calf tenderness. Well perfused and warm. NEUROLOGICAL: Awake, mumbling. No facial asymmetry, pupils equal and reactive. Moving extremities. ?ankle clonus. PSYCHIATRIC: Not following, has restraints LINE: No evidence of infection Assessment and Plan - Plan Impression One (+) BC with Coag Neg Staph C/W contaminant Encephalopathy, etiology? - work-up in progress - LP unremarkable Recommendation Ok to D/C Acyclovir from ID standpoint Clinically no change from ID standpoint On high dose steroids Neuro work-up in progress No need to Rx one (+) BC with Coag Neg Staph
--- NOTE | 2018-03-18 11:33 | P.PNIM ---
Subjective Interval history: Patient continues to be confused. Unchanged overnight. No fevers. Still in restraints. Physical Exam Vital signs: Last Vital Signs Temp 97.9 F 03/18/18 08:00 Pulse 92 H 03/18/18 08:00 Resp 18 03/18/18 08:00 BP 160/62 H 03/18/18 08:00 Pulse Ox 96 03/18/18 08:00 Intake & Output 03/16/18 03/17/18 03/18/18 03/19/18 06:59 06:59 06:59 06:59 Intake Total 3332.2 / 3332.2 3546.2 / 3546.2 2087.8 / 2087.8 240 / 240 Balance 3332.2 / 3332.2 3546.2 / 3546.2 2087.8 / 7.8 240 / 240 Weight 81 kg 84.9 kg 83.8 kg Narrative: GENERAL: This is a well-nourished, well-developed patient, in no apparent distress laying in bed with four-point restraints.. CARDIOVASCULAR: Regular rate and rhythm RESPIRATORY: Clear to auscultation. Breath sounds equal bilaterally. No wheezes , rales, or rhonchi. GASTROINTESTINAL: Abdomen soft, non-tender, nondistended. Normal active bowel sounds MUSCULOSKELETAL: Extremities without clubbing, cyanosis, or edema. NEURO: Awake and alert to self but not to place ,time, situation, no agitation, confused, poor insight. Does move bilateral upper and lower extremities spontaneously and follows directions. Speech mumbled but understandable Results Labs CBC & Chem 7: 03/18/18 08:31 03/18/18 08:31 Labs: Microbiology 03/16/18 09:10 Blood - Peripheral Aerobic Blood Culture - Preliminary No growth in 2 days 03/16/18 09:10 Blood - Peripheral Anaerobic Blood Culture - Preliminary No growth in 2 days 03/16/18 09:15 Blood - Peripheral Aerobic Blood Culture - Preliminary No growth in 2 days 03/16/18 09:15 Blood - Peripheral Anaerobic Blood Culture - Preliminary No growth in 2 days 03/13/18 03:10 Blood - Peripheral Aerobic Blood Culture - Final No growth in 5 days 03/13/18 03:10 Blood - Peripheral Anaerobic Blood Culture - Preliminary Staphylococcus coag negative 03/13/18 03:08 Blood - Peripheral Aerobic Blood Culture - Final No growth in 5 days 03/13/18 03:08 Blood - Peripheral Anaerobic Blood Culture - Final No growth in 5 days 03/16/18 15:53 Lumbar Puncture Gram Stain - Final 03/16/18 15:53 Lumbar Puncture CSF Culture - Preliminary No growth in 48 hours Imaging Imaging: Impressions Lumbar Puncture Fluoroscopy 03/16/18 12:31 CONCLUSION: 1. Uncomplicated fluoroscopically guided lumbar puncture. Procedures Procedures: 03/17 lumbar puncture with radiology Assessment and Plan (1) Hypertension: Code(s): I10 - Essential (primary) hypertension Status: Acute (2) Abnormal ABGs: Code(s): R79.81 - Abnormal blood-gas level Status: Acute (3) Acute encephalopathy: Code(s): G93.40 - Encephalopathy, unspecified Status: Acute Plan 67-year-old male with history of hypertension presents with AMS via EVAC under Ferro act after being found by police officer booking on the side of the road in a vehicle that was disabled due to running out of gas, per ER report. Reportedly patient drove his car here from [place]. Acute encephalopathy/altered mental status: Unclear etiology. -Head CT and brain MRI reviewed and unremarkable -Chest CTA negative for PE, no effusions, no congestive failure, no emphysema -Labs mostly unremarkable, ammonia wnl, no CO2 retention, BG wnl, UDS negative -No obvious signs of infection, UA, urine culture, and CXR negative -Blood cultures with no growth to date -EEG reviewed and unremarkable -Continue on empiric IV Vanco/Ampicillin/Rocephin. Acyclovir has been discontinued per neurology, await HSV PCR; infectious disease also following patient. -Neurology consulted, appreciate assistance. Dr. Caro has initiated Namenda today. -Psychiatry Dr. Julio lifted Ferro act and deemed patient lacked capacity for decision-making, -Appreciate palliative care assisting with designating sign as a healthcare proxy and establishing goals of care who has consented for a lumbar puncture which was completed yesterday by radiology. CSF studies currently pending -soft restraints as needed, Haldol prn agitation Increase in WBC due to Solu-Medrol given yesterday. RAFA screen negative, rheumatoid arthritis negative Accelerated Hypertension: consider hypertensive encephalopathy possibly contributing to above? -BP as high as 190/88 -Continue on toprol XL 50mg qd, norvasc 10mg, and lisinopril 40 mg p.o. daily , add HCTZ to the regimen today -IV Vasotec prn -Monitor BP, adjust antihypertensives as needed We will add hydralazine today. Hypokalemia: Resolved and repleted DVT Prophylaxis: teds/SCDs; initiate Lovenox due to completion of LP. _ (1) Hypertension Qualifiers: Hypertension type:
[2018-03-18] MEDS: hydrALAZINE 10 MG Tablet PO SCH ×2 (13:32→18:07)
--- NOTE | 2018-03-18 17:09 | P.PNPAL ---
Reason for Visit Reason for visit: a. To assist with evaluation and management of symptoms including: Confusion, tremors b. To assist medical decision maker(s) with: better understanding of current medical conditions; weighing benefits/burdens of medical treatment options; making medical treatment decisions. Subjective Subjective/Interval History: This is a 67-year-old male with a history of hypertension and paranoia who was found by a transit police officer on the side of the road in a vehicle that was disabled as it had run out of gas afternoon on 03/12. Patient was noted to be confused, unsure of his location and deemed unable to take care of himself and was therefore Ferro acted to [facility]. After admission he became agitated and began to fight with the staff and was transferred to [place] for further evaluation. He was found to be oriented to person only. He reported that he was from [place] did have a brother and sister in [facility]. He had noted tremors over the past 6 months that have been increasing but has not had these worked up. He denies any substance abuse. Patient is seen today for follow-up of symptom management confusion, tremors and to assist in goals of medical treatment. Patient remains confused, lethargic, arousable. He cannot respond to questions like "how do you feel today?". He mumbles but his words are not generally clear. He does not know where he is, in spite of reinforcement, the date or why he is here. When cued he does not have any recollection of him running out of gas on the side of the road in [facility], being transported to [facility] for coming to [facility]. These events have been reviewed with him in the past and he has no recollection of that conversation. He is in four-point restraints making it difficult to determine whether he is having tremors or is struggling against the restraints. His tremors are intermittent, mild, with no known exacerbating or relieving factors. They have been noted since admission. Neurology is following. . Objective Vital Signs: Vital Signs 03/17/18 20:00 03/18/18 00:00 03/18/18 04:00 Temperature 98.3 F 98.0 F 98.4 F Pulse Rate 66 114 H 98 H Respiratory Rate 20 22 22 Blood Pressure 196/31 H 154/56 H 145/84 H Pulse Oximetry 100 94 L 99 03/18/18 08:00 03/18/18 12:00 Temperature 97.9 F 97.9 F Pulse Rate 94 H 109 H Respiratory Rate 18 18 Blood Pressure 160/62 H 161/86 H Pulse Oximetry 96 98 Intake & Output 03/17/18 03/18/18 03/18/18 18:59 06:59 18:59 Intake Total 1702.4 / 1702.4 385.4 / 385.4 570.8 / 570.8 Balance 1702.4 / 1702.4 385.4 / 385.4 570.8 / 570.8 Weight 184 lb 11.958 oz Intake: IV 1131.4 / 1131.4 165.4 / 165.4 330.8 / 330.8 NS Inj 1,000 ML @ 100 mls/hr IV 750 / 750 .CONT .Q10H MIKEL Rx#:[id number] Zovirax Inj 770 MG In NS Inj 165.4 / 165.4 165.4 / 165.4 330.8 / 330.8 150 ML @ 165.4 mls/hr IV.SIG Q8H MIKEL Rx#:[id number] Ampicillin Inj 1,000 MG In NS 100 / 100 Inj 100 ML @ 400 mls/hr IV.SIG Q4H MIKEL Rx#:[id number] SoluMEDROL Inj 1,000 MG In D5W 116 / 116 Inj 100 ML @ 116 mls/hr IV.SIG ONCE ONE Rx#:[id number] Oral 220 / 220 Oral Supplement 240 / 240 Other 571 / 571 Other: # Voids 3 # Incontinent Voids 1 # Urine Diapers 4 Date of Last Bowel Movement 03/17/18 Physical Exam: CONSTITUTIONAL/GENERAL: This is an adequately nourished patient, in no apparent distress. ENT: Hearing grossly normal. Nose without bleeding or purulent drainage. Throat without visible erythema, exudates, masses, or lesions. NECK: Trachea midline. Supple, nontender. No palpable thyroid enlargement or nodularity. CARDIOVASCULAR: Regular rate and rhythm without murmurs, gallops, or rubs. No JVD. Peripheral pulses symmetric. RESPIRATORY/CHEST: Symmetric, unlabored respirations. Clear to auscultation. Breath sounds equal bilaterally. No wheezes, rales, or rhonchi. GASTROINTESTINAL: Abdomen soft, non-tender, nondistended. No hepato-splenomegaly , or palpable masses. No guarding. Bowel sounds present. GENITOURINARY: Without palpable bladder distension. MUSCULOSKELETAL: Extremities without clubbing, cyanosis, or edema. No joint tenderness or effusion noted. No calf tenderness. No mottling or clubbing. NEUROLOGICAL: Lethargic, arousable, confused, mildly agitated, restrained, slurred speech, able to move all extremities. PSYCHIATRIC: Mild anxiety, appears fearful on arousal, no apparent hallucinations or other psychotic thought process. . Diagnostic Tests Laboratory: Laboratory Results - last 72 hr 03/13/18 03/15/18 03/16/18 19:29 15:53 09:10 WBC 11.2 H RBC 4.41 L Hgb 13.7 Hct 39.9 MCV 90.5 MCH 31.0 MCHC 34.3 RDW 14.3 Plt Count 255 MPV 9.6 Prelim Diff (Auto) Manual diff required Neut % (Auto) Lymph % (Auto) Andrew % (Auto) Eos % (Auto) Baso % (Auto) Neut # (Auto) Lymph # (Auto) Andrew # (Auto) Eos # (Auto) Baso # (Auto) WBC Differential Manual diff final Seg Neuts % (Manual) 95 H Band Neuts % (Manual) 1 Lymphocytes % (Manual) 1 L Monocytes % (Manual) 2 Eosinophils % (Manual) 1 Abs Neuts (Manual) 10.8 H Differential Comment . Platelet Estimate Normal Platelet Morphology Normal Ovalocytes 1+ H Puncture Site Patient Temperature O2 Saturation ABG pH ABG pCO2 ABG pO2 ABG HCO3 ABG O2 Content ABG Base Excess ABG Methemoglobin Holland Test Hemoglobin Carboxyhemoglobin O2 Delivery Device Inspired O2 Critical Value Sodium Potassium Chloride Carbon Dioxide Anion Gap BUN Creatinine Estimated GFR Random Glucose Calcium Ammonia Thiamine 318 H Methylmalonic Acid 0.08 CSF Volume (1) CSF Supernat Color (1) CSF Gross Blood (1) CSF WBC (1) CSF RBC (1) CSF Volume (2) CSF Supernat Color (2) CSF Gross Blood (2) CSF Volume (3) CSF Supernat Color (3) CSF Gross Blood (3) CSF Volume (4) CSF Supernat Color (4) CSF Gross Blood (4) CSF WBC (4) CSF RBC (4) CSF Neutrophils % CSF Glucose CSF Total Protein CSF Herpes I DNA (PCR) Cancelled CSF Herpes II DNA (PCR) Cancelled CSF N.mening B/E.coli K1 CSF N.meningitidis A/Y Bacterial Ag Source H.influenzae Type B Ag N. meningitidis C/W 135 Group B Strep Antigen S. pneumoniae Antigen 03/16/18 03/16/18 03/16/18 09:15 15:53 15:53 WBC RBC Hgb Hct MCV MCH MCHC RDW Plt Count MPV Prelim Diff (Auto) Neut % (Auto) Lymph % (Auto) Andrew % (Auto) Eos % (Auto) Baso % (Auto) Neut # (Auto) Lymph # (Auto) Andrew # (Auto) Eos # (Auto) Baso # (Auto) WBC Differential Seg Neuts % (Manual) Band Neuts % (Manual) Lymphocytes % (Manual) Monocytes % (Manual) Eosinophils % (Manual) Abs Neuts (Manual) Differential Comment Platelet Estimate Platelet Morphology Ovalocytes Puncture Site Patient Temperature O2 Saturation ABG pH ABG pCO2 ABG pO2 ABG HCO3 ABG O2 Content ABG Base Excess ABG Methemoglobin Holland Test Hemoglobin Carboxyhemoglobin O2 Delivery Device Inspired O2 Critical Value Sodium 142 Potassium 3.5 Chloride 110 H Carbon Dioxide 19.4 L Anion Gap 13 BUN 14 Creatinine 1.09 Estimated GFR 82 L Random Glucose 158 H Calcium 8.5 Ammonia Thiamine Methylmalonic Acid CSF Volume (1) CSF Supernat Color (1) CSF Gross Blood (1) CSF WBC (1) 0 CSF RBC (1) 106 H CSF Volume (2) CSF Supernat Color (2) CSF Gross Blood (2) CSF Volume (3) CSF Supernat Color (3) CSF Gross Blood (3) CSF Volume (4) CSF Supernat Color (4) CSF Gross Blood (4) CSF WBC (4) CSF RBC (4) CSF Neutrophils % CSF Glucose CSF Total Protein CSF Herpes I DNA (PCR) CSF Herpes II DNA (PCR) CSF N.mening B/E.coli K1 Cancelled CSF N.meningitidis A/Y Cancelled Bacterial Ag Source Cancelled H.influenzae Type B Ag Cancelled N. meningitidis C/W 135 Cancelled Group B Strep Antigen Cancelled S. pneumoniae Antigen Cancelled 03/16/18 03/16/18 03/16/18 15:53 15:53 15:53 WBC RBC Hgb Hct MCV MCH MCHC RDW Plt Count MPV Prelim Diff (Auto) Neut % (Auto) Lymph % (Auto) Andrew % (Auto) Eos % (Auto) Baso % (Auto) Neut # (Auto) Lymph # (Auto) Andrew # (Auto) Eos # (Auto) Baso # (Auto) WBC Differential Seg Neuts % (Manual) Band Neuts % (Manual) Lymphocytes % (Manual) Monocytes % (Manual) Eosinophils % (Manual) Abs Neuts (Manual) Differential Comment Platelet Estimate Platelet Morphology Ovalocytes Puncture Site Patient Temperature O2 Saturation ABG pH ABG pCO2 ABG pO2 ABG HCO3 ABG O2 Content ABG Base Excess ABG Methemoglobin Holalnd Test Hemoglobin Carboxyhemoglobin O2 Delivery Device Inspired O2 Critical Value Sodium Potassium Chloride Carbon Dioxide Anion Gap BUN Creatinine Estimated GFR Random Glucose Calcium Ammonia Thiamine Methylmalonic Acid CSF Volume (1) 2.9 CSF Supernat Color (1) Clear CSF Gross Blood (1) 0 CSF WBC (1) CSF RBC (1) CSF Volume (2) 3.8 CSF Supernat Color (2) Clear CSF Gross Blood (2) 0 CSF Volume (3) 2.7 CSF Supernat Color (3) Clear CSF Gross Blood (3) 0 CSF Volume (4) 3.8 CSF Supernat Color (4) Clear CSF Gross Blood (4) 0 CSF WBC (4) 0 CSF RBC (4) 0 CSF Neutrophils % 0 CSF Glucose 106 H CSF Total Protein 35.8 CSF Herpes I DNA (PCR) CSF Herpes II DNA (PCR) CSF N.mening B/E.coli K1 CSF N.meningitidis A/Y Bacterial Ag Source H.influenzae Type B Ag N. meningitidis C/W 135 Group B Strep Antigen S. pneumoniae Antigen 03/17/18 03/17/18 03/17/18 10:05 10:05 10:05 WBC 15.2 H RBC 4.40 L Hgb 13.7 Hct 39.2 MCV 89.2 MCH 31.1 MCHC 34.9 RDW 14.2 Plt Count 228 MPV 8.7 Prelim Diff (Auto) Neut % (Auto) 91.5 H Lymph % (Auto) 4.5 L Andrew % (Auto) 3.9 Eos % (Auto) 0.0 Baso % (Auto) 0.1 Neut # (Auto) 13.9 H Lymph # (Auto) 0.7 L Andrew # (Auto) 0.6 Eos # (Auto) 0.0 Baso # (Auto) 0.0 WBC Differential . Seg Neuts % (Manual) Band Neuts % (Manual) Lymphocytes % (Manual) Monocytes % (Manual) Eosinophils % (Manual) Abs Neuts (Manual) Differential Comment Auto diff final Platelet Estimate Platelet Morphology Ovalocytes Puncture Site Patient Temperature O2 Saturation ABG pH ABG pCO2 ABG pO2 ABG HCO3 ABG O2 Content ABG Base Excess ABG Methemoglobin Holland Test Hemoglobin Carboxyhemoglobin O2 Delivery Device Inspired O2 Critical Value Sodium 143 Potassium 3.4 L Chloride 109 H Carbon Dioxide 25.2 Anion Gap 9 BUN 14 Creatinine 0.90 Estimated GFR Greater than 89 Random Glucose 130 H Calcium 8.5 Ammonia Less than 10 L Thiamine Methylmalonic Acid CSF Volume (1) CSF Supernat Color (1) CSF Gross Blood (1) CSF WBC (1) CSF RBC (1) CSF Volume (2) CSF Supernat Color (2) CSF Gross Blood (2) CSF Volume (3) CSF Supernat Color (3) CSF Gross Blood (3) CSF Volume (4) CSF Supernat Color (4) CSF Gross Blood (4) CSF WBC (4) CSF RBC (4) CSF Neutrophils % CSF Glucose CSF Total Protein CSF Herpes I DNA (PCR) CSF Herpes II DNA (PCR) CSF N.mening B/E.coli K1 CSF N.meningitidis A/Y Bacterial Ag Source H.influenzae Type B Ag N. meningitidis C/W 135 Group B Strep Antigen S. pneumoniae Antigen 03/17/18 03/18/18 03/18/18 11:00 08:31 08:31 WBC 9.4 RBC 4.36 L Hgb 13.7 Hct 40.2 MCV 92.0 MCH 31.4 MCHC 34.1 RDW 14.3 Plt Count 256 MPV 8.8 Prelim Diff (Auto) Neut % (Auto) 93.6 H Lymph % (Auto) 4.3 L Andrew % (Auto) 1.7 Eos % (Auto) 0.3 Baso % (Auto) 0.1 Neut # (Auto) 8.8 H Lymph # (Auto) 0.4 L Andrew # (Auto) 0.2 Eos # (Auto) 0.0 Baso # (Auto) 0.0 WBC Differential . Seg Neuts % (Manual) Band Neuts % (Manual) Lymphocytes % (Manual) Monocytes % (Manual) Eosinophils % (Manual) Abs Neuts (Manual) Differential Comment Auto diff final Platelet Estimate Platelet Morphology Ovalocytes Puncture Site Left radial Patient Temperature 98.6 O2 Saturation 96 ABG pH 7.46 H ABG pCO2 34 L ABG pO2 102 ABG HCO3 24 ABG O2 Content 18.2 ABG Base Excess 0.4 ABG Methemoglobin 1.1 Holland Test Present Hemoglobin 13.4 Carboxyhemoglobin 0.9 O2 Delivery Device Ra Inspired O2 21 Critical Value No Sodium 142 Potassium 3.9 Chloride 104 Carbon Dioxide 28.6 Anion Gap 9 BUN 19 H Creatinine 1.22 Estimated GFR 72 L Random Glucose 167 H Calcium 9.5 D Ammonia Thiamine Methylmalonic Acid CSF Volume (1) CSF Supernat Color (1) CSF Gross Blood (1) CSF WBC (1) CSF RBC (1) CSF Volume (2) CSF Supernat Color (2) CSF Gross Blood (2) CSF Volume (3) CSF Supernat Color (3) CSF Gross Blood (3) CSF Volume (4) CSF Supernat Color (4) CSF Gross Blood (4) CSF WBC (4) CSF RBC (4) CSF Neutrophils % CSF Glucose CSF Total Protein CSF Herpes I DNA (PCR) CSF Herpes II DNA (PCR) CSF N.mening B/E.coli K1 CSF N.meningitidis A/Y Bacterial Ag Source H.influenzae Type B Ag N. meningitidis C/W 135 Group B Strep Antigen S. pneumoniae Antigen Result Diagrams: 03/18/18 08:31 03/18/18 08:31 Microbiology: Microbiology 03/16/18 15:53 Acid Fast Bacilli Smear - Final Cerebral Spinal Fluid - Lumbar Puncture No acid fast bacilli seen 03/16/18 09:10 Aerobic Blood Culture - Preliminary Blood - Peripheral No growth in 2 days Anaerobic Blood Culture - Preliminary No growth in 2 days 03/16/18 09:15 Aerobic Blood Culture - Preliminary Blood - Peripheral No growth in 2 days Anaerobic Blood Culture - Preliminary No growth in 2 days 03/13/18 03:10 Aerobic Blood Culture - Final Blood - Peripheral No growth in 5 days Anaerobic Blood Culture - Preliminary Staphylococcus coag negative 03/13/18 03:08 Aerobic Blood Culture - Final Blood - Peripheral No growth in 5 days Anaerobic Blood Culture - Final No growth in 5 days 03/16/18 15:53 Gram Stain - Final Lumbar Puncture CSF Culture - Preliminary No growth in 48 hours Imaging: ITS Impressions Chest CTA 03/13/18 00:00 CONCLUSION: 1. Negative for central pulmonary emboli. 2. There is no pericardial effusion. 3. I don't see evidence for congestive failure. 4. I do not see significant emphysematous changes. Head MRI 03/13/18 00:00 CONCLUSION: 1. Grossly unremarkable MRI of the brain. No definite acute intracranial pathology. Chest X-Ray 03/13/18 01:56 CONCLUSION: No acute cardiopulmonary disease identified. Head CT 03/13/18 01:56 CONCLUSION: No acute intracranial findings. . Lumbar Puncture Fluoroscopy 03/16/18 12:31 CONCLUSION: 1. Uncomplicated fluoroscopically guided lumbar puncture. Assessment and Plan - Disease Oriented Problem List (1) Abnormal ABGs (2) Acidosis, lactic (3) Acute encephalopathy (4) Altered mental status (5) Hypertension (6) Pyuria (7) Weakness - Symptom Scale (1) Confusion 0-10 Scale: Unable to quantify (2) Occasional tremors 0-10 Scale: Unable to quantify Pertinent Non-Medical Issues: Psychosocial: Patient was born in [place] moved to [place] many decades ago. 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 He was and has 1 son. He was 2 years ago. Spiritual: Viscosity Worker available. Legal: No advance directives available. His son is his decision maker by proxy. Ethical issues impacting care: Patient is not capacitated for decision-making per psychiatry. . Important Contacts: Son: Evens Conte -healthcare proxy decision-maker Sister: Belen Lyles Family: Trisha Carrington . Prognosis: His prognosis is guarded. He has been exhibiting a cognitive decline for 6 months and is showing tremors with no verifiable history of having been diagnosed with any neurologic disease. Given his family history of Parkinson's , this is a possible diagnosis. Attempted to confirm via his primary care provider, Dr. Paul Falcon in [place] , however office is closed for the weekend. At this time he has been declared incapacitated for decision-making by psychiatry. His son wishes to continue aggressive care. It is uncertain if the patient will ever regain capacity. Workup continues, neurology following. . Code Status: Full Code Plan: PLAN: Legal decision maker: Patient is not capacitated for decision-making per psychiatry. It is uncertain whether he will regain capacity. He has 1 son, Evens Conte who would be his proxy decision-maker per [place] statutes. Goals: Aggressive at this time. CODE STATUS: FULL CODE SYMPTOMS: * Confusion: Per family, patient has a baseline paranoia and at home has visitors enter through the garage door for fear of being robbed through the front door. They state that in the community, outside his home, he appears more normal and interactive, but at his home he watches his neighbors activities and over the last 6 months has shown evidence of confusion and memory loss, forgetting to pay his bills, poor attendance to personal hygiene, accusing family members of stealing his license plate. No prior psychiatric illnesses known or diagnosed mental health issues. Psychiatry has evaluated, found him not to be capacitated, but not admissible to inpatient psychiatry and recommends continuing with medical workup as medically necessary. Lumbar puncture cultures pending. Urinalysis negative, toxicology negative, no significant metabolic derangements noted. Neurology following. Please note family history of Parkinson's in 2 siblings. * Tremors: Per the records, he had been experiencing tremors over the last 6 months. No known workup has been done. Neurology is evaluating. Contact with PCP is pending, reportedly last saw him 02/11/2018. No further recommendations at this time. Palliative care will continue to follow the patient during hospital course as condition evolves, to assist patient/decision-maker with understanding of their medical conditions, weighing benefits/burdens of treatment options, for clarification of goals of treatment. Additionally will assist with any symptoms of palliative concern. . Attestation Attestation: To help prompt me to consider important information that might be impacting today's encounter and assessment, information from prior notes written by myself or my colleagues may have been "brought forward" into today's note. My signature on this note, however, is an attestation that I personally performed the exam, history, and/or decision-making noted today, and, unless otherwise indicated, the interactions with patient, family, and staff as well as the review of records all occurred today. I also attest that the listed assessment and stated plan reflect my best clinical judgment today based on the combination of historical information, prior notes, and today's exam/ interactions. When time spent is documented, it refers only to time spent today by the signer, or if indicated, combined time spent today by collaborating physician/nurse practitioner. .
[2018-03-19] MEDS: ACYCLOVIR IV.SIG SCH (04:58)
[2018-03-19] MEDS: SODIUM CHLOR 0.9% IV.SIG SCH (04:58)
[2018-03-19] MEDS: Heparin - SQ 10,000 UNITS/ML Vial SQ SCH ×2 (09:18→20:22)
[2018-03-19] MEDS: hydroCHLOROthiazide 25 MG Tablet PO SCH (09:18)
[2018-03-19] MEDS: amLODIPine 10 MG Tablet PO SCH (09:18)
[2018-03-19] MEDS: hydrALAZINE 10 MG Tablet PO SCH ×2 (09:18→12:36)
[2018-03-19] MEDS: Lisinopril 20 MG Tablet PO SCH (09:18)
--- NOTE | 2018-03-19 13:03 | P.PNIM ---
Subjective Interval history: Still confused, staff states that he is tolerating p.o. at times he still gets agitated. Still in restraints Physical Exam Vital signs: Last Vital Signs Temp 97.8 F 03/19/18 04:00 Pulse 85 03/19/18 04:00 Resp 18 03/19/18 04:00 BP 185/86 H 03/19/18 04:00 Pulse Ox 98 03/19/18 04:00 Intake & Output 03/17/18 03/18/18 03/19/18 03/20/18 06:59 06:59 06:59 06:59 Intake Total 3546.2 / 3546.2 2087.8 / 208.8 1261.6 / 1261.6 Balance 3546.2 / 3546.2 2086.8 / 2086.8 1261.6 / 1261.6 Weight 84.9 kg 83.8 kg 83 kg Narrative: GENERAL: This is a well-nourished, well-developed patient, in no apparent distress laying in bed with four-point restraints.. CARDIOVASCULAR: Regular rate and rhythm RESPIRATORY: Clear to auscultation. Breath sounds equal bilaterally. No wheezes , rales, or rhonchi. GASTROINTESTINAL: Abdomen soft, non-tender, nondistended. Normal active bowel sounds MUSCULOSKELETAL: Extremities without clubbing, cyanosis, or edema. NEURO: Awake and alert to self but not to place ,time, situation, mild agitation , confused, poor insight. Does move bilateral upper and lower extremities spontaneously and follows directions. Speech mumbled but understandable Results Labs CBC & Chem 7: 03/18/18 08:31 03/18/18 08:31 Labs: Microbiology 03/13/18 03:10 Blood - Peripheral Aerobic Blood Culture - Final No growth in 5 days 03/13/18 03:10 Blood - Peripheral Anaerobic Blood Culture - Final Staphylococcus capitis-capitis 03/16/18 09:10 Blood - Peripheral Aerobic Blood Culture - Preliminary No growth in 3 days 03/16/18 09:10 Blood - Peripheral Anaerobic Blood Culture - Preliminary No growth in 3 days 03/16/18 09:15 Blood - Peripheral Aerobic Blood Culture - Preliminary No growth in 3 days 03/16/18 09:15 Blood - Peripheral Anaerobic Blood Culture - Preliminary No growth in 3 days 03/16/18 15:53 Lumbar Puncture Gram Stain - Final 03/16/18 15:53 Lumbar Puncture CSF Culture - Final No growth in 72 hours 03/16/18 15:53 Cerebral Spinal Fluid - Lumbar Puncture Acid Fast Bacilli Smear - Final No acid fast bacilli seen 03/13/18 03:08 Blood - Peripheral Aerobic Blood Culture - Final No growth in 5 days 03/13/18 03:08 Blood - Peripheral Anaerobic Blood Culture - Final No growth in 5 days Procedures Procedures: 03/17 lumbar puncture with radiology Assessment and Plan (1) Hypertension: Code(s): I10 - Essential (primary) hypertension Status: Acute (2) Abnormal ABGs: Code(s): R79.81 - Abnormal blood-gas level Status: Acute (3) Acute encephalopathy: Code(s): G93.40 - Encephalopathy, unspecified Status: Acute Plan 67-year-old male with history of hypertension presents with AMS via EVAC under Ferro act after being found by police chief on the side of the road in a vehicle that was disabled due to running out of gas, per ER report. Reportedly patient drove his car here from [place]. Acute encephalopathy/altered mental status: Unclear etiology. -Head CT and brain MRI reviewed and unremarkable -Chest CTA negative for PE, no effusions, no congestive failure, no emphysema -Labs mostly unremarkable, ammonia wnl, no CO2 retention, BG wnl, UDS negative -No obvious signs of infection, UA, urine culture, and CXR negative -Blood cultures with no growth to date -EEG reviewed and unremarkable -Continue on empiric IV Vanco/Ampicillin/Rocephin. Acyclovir has been discontinued per neurology, HSV PCR negative; infectious disease also following patient. -Neurology consulted, appreciate assistance. Dr. Caro has initiated Namenda yesterday. -Psychiatry Dr. Julio lifted Ferro act and deemed patient lacked capacity for decision-making, -Appreciate palliative care assisting with designating sign as a healthcare proxy and establishing goals of care who has consented for a lumbar puncture which was completed yesterday by radiology. CSF studies currently pending -soft restraints as needed, Haldol prn agitation RAFA screen negative, rheumatoid arthritis negative Accelerated Hypertension: consider hypertensive encephalopathy possibly contributing to above? -BP as high as 190/88 -Continue on toprol XL 50mg qd, norvasc 10mg, and lisinopril 40 mg p.o. daily , add HCTZ to the regimen today Increase hydralazine to 25 mg p.o. 3 times daily -IV Vasotec prn -Monitor BP, adjust antihypertensives as needed Hypokalemia: Resolved and repleted DVT Prophylaxis: teds/SCDs; initiate Lovenox due to completion of LP. _ (1) Hypertension Qualifiers: Hypertension type:
[2018-03-19] MEDS: hydrALAZINE 25 MG Tablet PO SCH ×2 (15:20→17:36)
--- NOTE | 2018-03-19 16:52 | P.PNPAL ---
Reason for Visit Reason for visit: a. To assist with evaluation and management of symptoms including: Confusion, weakness b. To assist medical decision maker(s) with: better understanding of current medical conditions; weighing benefits/burdens of medical treatment options; making medical treatment decisions. Subjective Subjective/Interval History: This is a 67-year-old male with a history of hypertension and paranoia who was found by a police or patrol park officer on the side of the road in a vehicle that was disabled as it had run out of gas afternoon on 03/12. Patient was noted to be confused, unsure of his location and deemed unable to take care of himself and was therefore [facility] acted to [facility]. After admission he became agitated and began to fight with the staff and was transferred to [place] for further evaluation. He was found to be oriented to person only. He reported that he was from [place] did have a brother and sister in [facility]. He had noted tremors over the past 6 months that have been increasing but has not had these worked up. He denies any substance abuse. Patient is seen today for follow-up of symptom management confusion, weakness and to assist in goals of medical treatment. Patient is more alert today with family at bedside. He remains somewhat confused and does not recognize his son or his sister. When reminded that he is in [facility] in [place], he says "oh, yes, I remember something about [facility]". He cannot tell why he was driving his car in [place]. He does not recollect running out of gas, being at [facility] or coming to [place]. He thinks that someone gave him a ride, but does not think it was the police or patrol park officer who actually brought him to [facility]. He is cooperative with eating, feeding himself. His weakness is multifactorial to include cognitive difficulties and prolonged bedbound status. He requires restraints because he attempts to get out of bed and is a fall risk. The restraints tend to increase his agitation making it impossible for him to attend to his toileting needs due to the restraints. He is able to stand with some assistance but in previous PT assessments was able to balance mostly by himself and standing but struggled to coordinate weight transferring to initiate sidestepping and needed external assistance. . Family/Friend Interactions: Spoke with his sister and brother at bedside. Reviewed clinical indicators, assessments and specialists opinions. They would like to have him transferred back to [place] as soon as he is stable. Optimally, they have requested [facility], but based on today's physical therapy assessment, it is unlikely that he will qualify until he can be out of restraints. This was reviewed with Dr. Harding and Dr. Valencia. Per that discussion, it was determined to attempt a low dose of Seroquel to calm the patient's agitation enough to get him out of restraints. This was also discussed with nurse manager internet retails sales, Libby Kenney, to attempt to move the patient closer to the nurses station with a bed alarm, once his agitation is under control, once a room becomes available. The family will look at nursing homes in their area in [place] and supply any names to case management. . Objective Vital Signs: Vital Signs 03/18/18 20:00 03/19/18 00:00 03/19/18 01:00 Temperature 98.4 F 98.1 F Pulse Rate 96 H 99 H 97 H Respiratory Rate 18 18 Blood Pressure 158/72 H 175/80 H Pulse Oximetry 97 98 03/19/18 04:00 03/19/18 12:00 03/19/18 16:00 Temperature 97.8 F 98.0 F 98.1 F Pulse Rate 85 65 77 Respiratory Rate 18 17 24 Blood Pressure 185/86 H 162/88 H 173/84 H Pulse Oximetry 98 100 96 Intake & Output 03/18/18 03/19/18 03/19/18 18:59 06:59 18:59 Intake Total 930.8 / 930.8 330.8 / 330.8 Balance 930.8 / 930.8 330.8 / 330.8 Weight 182 lb 15.739 oz Intake: IV 330.8 / 330.8 330.8 / 330.8 Zovirax Inj 770 MG In NS Inj 330.8 / 330.8 330.8 / 330.8 150 ML @ 165.4 mls/hr IV.SIG Q8H MIKEL Rx#:[id number] Oral 360 / 360 Oral Supplement 240 / 240 Other: # Voids 3 Date of Last Bowel Movement 03/17/18 03/17/18 # Bowel Movements 0 Physical Exam: CONSTITUTIONAL/GENERAL: This is an adequately nourished patient, in no apparent distress. ENT: Hearing grossly normal. Nose without bleeding or purulent drainage. Throat without visible erythema, exudates, masses, or lesions. NECK: Trachea midline. Supple, nontender. No palpable thyroid enlargement or nodularity. CARDIOVASCULAR: Regular rate and rhythm without murmurs, gallops, or rubs. No JVD. Peripheral pulses symmetric. RESPIRATORY/CHEST: Symmetric, unlabored respirations. Clear to auscultation. Breath sounds equal bilaterally. No wheezes, rales, or rhonchi. GASTROINTESTINAL: Abdomen soft, non-tender, nondistended. No hepato-splenomegaly , or palpable masses. No guarding. Bowel sounds present. GENITOURINARY: Without palpable bladder distension. MUSCULOSKELETAL: Extremities without clubbing, cyanosis, or edema. No joint tenderness or effusion noted. No calf tenderness. No mottling or clubbing. NEUROLOGICAL: Awake, oriented to self, disoriented to place, time and purpose, mildly agitated, restrained, speech improving, able to move all extremities. PSYCHIATRIC: Calmer today, feeding himself. . Diagnostic Tests Laboratory: Laboratory Results - last 72 hr 03/13/18 03/15/18 03/16/18 19:29 15:53 12:47 WBC RBC Hgb Hct MCV MCH MCHC RDW Plt Count MPV Neut % (Auto) Lymph % (Auto) Sampson % (Auto) Eos % (Auto) Baso % (Auto) Neut # (Auto) Lymph # (Auto) Sampson # (Auto) Eos # (Auto) Baso # (Auto) WBC Differential Differential Comment Puncture Site Patient Temperature O2 Saturation ABG pH ABG pCO2 ABG pO2 ABG HCO3 ABG O2 Content ABG Base Excess ABG Methemoglobin Holland Test Hemoglobin Carboxyhemoglobin O2 Delivery Device Inspired O2 Critical Value Sodium Potassium Chloride Carbon Dioxide Anion Gap BUN Creatinine Estimated GFR Random Glucose Calcium Ammonia Thiamine 318 H Methylmalonic Acid 0.08 CSF Volume (1) CSF Supernat Color (1) CSF Gross Blood (1) CSF WBC (1) CSF RBC (1) CSF Volume (2) CSF Supernat Color (2) CSF Gross Blood (2) CSF Volume (3) CSF Supernat Color (3) CSF Gross Blood (3) CSF Volume (4) CSF Supernat Color (4) CSF Gross Blood (4) CSF WBC (4) CSF RBC (4) CSF Neutrophils % CSF Glucose CSF Total Protein CSF Herpes I DNA (PCR) Cancelled CSF Herpes II DNA (PCR) Cancelled CSF N.mening B/E.coli K1 CSF N.meningitidis A/Y Anti-Ri Ab (West Blot) Not Reportable Bacterial Ag Source H.influenzae Type B Ag N. meningitidis C/W 135 Group B Strep Antigen S. pneumoniae Antigen 03/16/18 03/16/18 03/16/18 15:53 15:53 15:53 WBC RBC Hgb Hct MCV MCH MCHC RDW Plt Count MPV Neut % (Auto) Lymph % (Auto) Sampson % (Auto) Eos % (Auto) Baso % (Auto) Neut # (Auto) Lymph # (Auto) Sampson # (Auto) Eos # (Auto) Baso # (Auto) WBC Differential Differential Comment Puncture Site Patient Temperature O2 Saturation ABG pH ABG pCO2 ABG pO2 ABG HCO3 ABG O2 Content ABG Base Excess ABG Methemoglobin Holland Test Hemoglobin Carboxyhemoglobin O2 Delivery Device Inspired O2 Critical Value Sodium Potassium Chloride Carbon Dioxide Anion Gap BUN Creatinine Estimated GFR Random Glucose Calcium Ammonia Thiamine Methylmalonic Acid CSF Volume (1) 2.9 CSF Supernat Color (1) Clear CSF Gross Blood (1) 0 CSF WBC (1) 0 CSF RBC (1) 106 H CSF Volume (2) 3.8 CSF Supernat Color (2) Clear CSF Gross Blood (2) 0 CSF Volume (3) 2.7 CSF Supernat Color (3) Clear CSF Gross Blood (3) 0 CSF Volume (4) 3.8 CSF Supernat Color (4) Clear CSF Gross Blood (4) 0 CSF WBC (4) 0 CSF RBC (4) 0 CSF Neutrophils % 0 CSF Glucose CSF Total Protein CSF Herpes I DNA (PCR) CSF Herpes II DNA (PCR) CSF N.mening B/E.coli K1 Cancelled CSF N.meningitidis A/Y Cancelled Anti-Ri Ab (West Blot) Bacterial Ag Source Cancelled H.influenzae Type B Ag Cancelled N. meningitidis C/W 135 Cancelled Group B Strep Antigen Cancelled S. pneumoniae Antigen Cancelled 03/16/18 03/16/18 03/16/18 15:53 15:53 15:53 WBC RBC Hgb Hct MCV MCH MCHC RDW Plt Count MPV Neut % (Auto) Lymph % (Auto) Sampson % (Auto) Eos % (Auto) Baso % (Auto) Neut # (Auto) Lymph # (Auto) Sampson # (Auto) Eos # (Auto) Baso # (Auto) WBC Differential Differential Comment Puncture Site Patient Temperature O2 Saturation ABG pH ABG pCO2 ABG pO2 ABG HCO3 ABG O2 Content ABG Base Excess ABG Methemoglobin Holland Test Hemoglobin Carboxyhemoglobin O2 Delivery Device Inspired O2 Critical Value Sodium Potassium Chloride Carbon Dioxide Anion Gap BUN Creatinine Estimated GFR Random Glucose Calcium Ammonia Thiamine Methylmalonic Acid CSF Volume (1) CSF Supernat Color (1) CSF Gross Blood (1) CSF WBC (1) CSF RBC (1) CSF Volume (2) CSF Supernat Color (2) CSF Gross Blood (2) CSF Volume (3) CSF Supernat Color (3) CSF Gross Blood (3) CSF Volume (4) CSF Supernat Color (4) CSF Gross Blood (4) CSF WBC (4) CSF RBC (4) CSF Neutrophils % CSF Glucose 106 H CSF Total Protein 35.8 CSF Herpes I DNA (PCR) Negative CSF Herpes II DNA (PCR) Negative CSF N.mening B/E.coli K1 CSF N.meningitidis A/Y Anti-Ri Ab (West Blot) Bacterial Ag Source H.influenzae Type B Ag N. meningitidis C/W 135 Group B Strep Antigen S. pneumoniae Antigen 03/17/18 03/17/18 03/17/18 10:05 10:05 10:05 WBC 15.2 H RBC 4.40 L Hgb 13.7 Hct 39.2 MCV 89.2 MCH 31.1 MCHC 34.9 RDW 14.2 Plt Count 228 MPV 8.7 Neut % (Auto) 91.5 H Lymph % (Auto) 4.5 L Sampson % (Auto) 3.9 Eos % (Auto) 0.0 Baso % (Auto) 0.1 Neut # (Auto) 13.9 H Lymph # (Auto) 0.7 L Sampson # (Auto) 0.6 Eos # (Auto) 0.0 Baso # (Auto) 0.0 WBC Differential . Differential Comment Auto diff final Puncture Site Patient Temperature O2 Saturation ABG pH ABG pCO2 ABG pO2 ABG HCO3 ABG O2 Content ABG Base Excess ABG Methemoglobin Holland Test Hemoglobin Carboxyhemoglobin O2 Delivery Device Inspired O2 Critical Value Sodium 143 Potassium 3.4 L Chloride 109 H Carbon Dioxide 25.2 Anion Gap 9 BUN 14 Creatinine 0.90 Estimated GFR Greater than 89 Random Glucose 130 H Calcium 8.5 Ammonia Less than 10 L Thiamine Methylmalonic Acid CSF Volume (1) CSF Supernat Color (1) CSF Gross Blood (1) CSF WBC (1) CSF RBC (1) CSF Volume (2) CSF Supernat Color (2) CSF Gross Blood (2) CSF Volume (3) CSF Supernat Color (3) CSF Gross Blood (3) CSF Volume (4) CSF Supernat Color (4) CSF Gross Blood (4) CSF WBC (4) CSF RBC (4) CSF Neutrophils % CSF Glucose CSF Total Protein CSF Herpes I DNA (PCR) CSF Herpes II DNA (PCR) CSF N.mening B/E.coli K1 CSF N.meningitidis A/Y Anti-Ri Ab (West Blot) Bacterial Ag Source H.influenzae Type B Ag N. meningitidis C/W 135 Group B Strep Antigen S. pneumoniae Antigen 03/17/18 03/18/18 03/18/18 11:00 08:31 08:31 WBC 9.4 RBC 4.36 L Hgb 13.7 Hct 40.2 MCV 92.0 MCH 31.4 MCHC 34.1 RDW 14.3 Plt Count 256 MPV 8.8 Neut % (Auto) 93.6 H Lymph % (Auto) 4.3 L Sampson % (Auto) 1.7 Eos % (Auto) 0.3 Baso % (Auto) 0.1 Neut # (Auto) 8.8 H Lymph # (Auto) 0.4 L Sampson # (Auto) 0.2 Eos # (Auto) 0.0 Baso # (Auto) 0.0 WBC Differential . Differential Comment Auto diff final Puncture Site Left radial Patient Temperature 98.6 O2 Saturation 96 ABG pH 7.46 H ABG pCO2 34 L ABG pO2 102 ABG HCO3 24 ABG O2 Content 18.2 ABG Base Excess 0.4 ABG Methemoglobin 1.1 Holland Test Present Hemoglobin 13.4 Carboxyhemoglobin 0.9 O2 Delivery Device Ra Inspired O2 21 Critical Value No Sodium 142 Potassium 3.9 Chloride 104 Carbon Dioxide 28.6 Anion Gap 9 BUN 19 H Creatinine 1.22 Estimated GFR 72 L Random Glucose 167 H Calcium 9.5 D Ammonia Thiamine Methylmalonic Acid CSF Volume (1) CSF Supernat Color (1) CSF Gross Blood (1) CSF WBC (1) CSF RBC (1) CSF Volume (2) CSF Supernat Color (2) CSF Gross Blood (2) CSF Volume (3) CSF Supernat Color (3) CSF Gross Blood (3) CSF Volume (4) CSF Supernat Color (4) CSF Gross Blood (4) CSF WBC (4) CSF RBC (4) CSF Neutrophils % CSF Glucose CSF Total Protein CSF Herpes I DNA (PCR) CSF Herpes II DNA (PCR) CSF N.mening B/E.coli K1 CSF N.meningitidis A/Y Anti-Ri Ab (West Blot) Bacterial Ag Source H.influenzae Type B Ag N. meningitidis C/W 135 Group B Strep Antigen S. pneumoniae Antigen Result Diagrams: 03/18/18 08:31 03/18/18 08:31 Microbiology: Microbiology 03/13/18 03:10 Aerobic Blood Culture - Final Blood - Peripheral No growth in 5 days Anaerobic Blood Culture - Final Staphylococcus capitis-capitis 03/16/18 09:10 Aerobic Blood Culture - Preliminary Blood - Peripheral No growth in 3 days Anaerobic Blood Culture - Preliminary No growth in 3 days 03/16/18 09:15 Aerobic Blood Culture - Preliminary Blood - Peripheral No growth in 3 days Anaerobic Blood Culture - Preliminary No growth in 3 days 03/16/18 15:53 Gram Stain - Final Lumbar Puncture CSF Culture - Final No growth in 72 hours 03/16/18 15:53 Acid Fast Bacilli Smear - Final Cerebral Spinal Fluid - Lumbar Puncture No acid fast bacilli seen 03/13/18 03:08 Aerobic Blood Culture - Final Blood - Peripheral No growth in 5 days Anaerobic Blood Culture - Final No growth in 5 days Imaging: ITS Impressions Chest CTA 03/13/18 00:00 CONCLUSION: 1. Negative for central pulmonary emboli. 2. There is no pericardial effusion. 3. I don't see evidence for congestive failure. 4. I do not see significant emphysematous changes. Head MRI 03/13/18 00:00 CONCLUSION: 1. Grossly unremarkable MRI of the brain. No definite acute intracranial pathology. Chest X-Ray 03/13/18 01:56 CONCLUSION: No acute cardiopulmonary disease identified. Head CT 03/13/18 01:56 CONCLUSION: No acute intracranial findings. . Lumbar Puncture Fluoroscopy 03/16/18 12:31 CONCLUSION: 1. Uncomplicated fluoroscopically guided lumbar puncture. Procedures: 03/16: Lumbar puncture . Assessment and Plan - Disease Oriented Problem List (1) Acute encephalopathy (2) Abnormal ABGs (3) Hypertension (4) Altered mental status - Symptom Scale (1) Weakness 0-10 Scale: Unable to quantify (2) Confusion 0-10 Scale: Unable to quantify Pertinent Non-Medical Issues: Psychosocial: Patient was born in [place] moved to [place] many decades ago. 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 He was and has 1 son. He was 2 years ago. Spiritual: Wrapping Machine Tender available. Legal: No advance directives available. His son is his decision maker by proxy. Ethical issues impacting care: Patient is not capacitated for decision-making per psychiatry. . Important Contacts: Son: Evens Conte -healthcare proxy decision-maker Sister: Belen Lyles Family: Trisha Carrington . Prognosis: His prognosis is guarded. He has been exhibiting a cognitive decline for 6 months and is showing tremors with no verifiable history of having been diagnosed with any neurologic disease. Given his family history of Parkinson's , this is a possible diagnosis. Attempted to confirm via his primary care provider, Dr. Paul Falcon in [place] , however office is closed for the weekend. At this time he has been declared incapacitated for decision-making by psychiatry. His son wishes to continue aggressive care. It is uncertain if the patient will ever regain capacity. Workup continues, neurology following. . Code Status: Full Code Plan: PLAN: Legal decision maker: Patient is not capacitated for decision-making per psychiatry. It is uncertain whether he will regain capacity. He has 1 son, Evens Conte who would be his proxy decision-maker per [place] statutes. Goals: Aggressive at this time. CODE STATUS: FULL CODE SYMPTOMS: * Confusion: Per family, patient has a baseline paranoia and at home has visitors enter through the garage door for fear of being robbed through the front door. They state that in the community, outside his home, he appears more normal and interactive, but at his home he watches his neighbors activities and over the last 6 months has shown evidence of confusion and memory loss, forgetting to pay his bills, poor attendance to personal hygiene, accusing family members of stealing his license plate. No prior psychiatric illnesses known or diagnosed mental health issues. Psychiatry has evaluated, found him not to be capacitated, but not admissible to inpatient psychiatry and recommends continuing with medical workup as medically necessary. Lumbar puncture cultures pending. Urinalysis negative, toxicology negative, no significant metabolic derangements noted. Neurology following. Please note family history of Parkinson's in 2 siblings. * Weakness: Multifactorial to include bedbound status, restraints and poor nutrition. He continues to receive physical therapy services but his cognition is limiting his progress. Plan to initiate low-dose Seroquel to attempt to eliminate restraints and transition to bed alarm to help stabilize agitation and facilitate therapy. Family would like him transferred to [place] to complete his therapy once stabilized for discharge. Palliative care will continue to follow the patient during hospital course as condition evolves, to assist patient/decision-maker with understanding of their medical conditions, weighing benefits/burdens of treatment options, for clarification of goals of treatment. Additionally will assist with any symptoms of palliative concern. . Attestation Attestation: To help prompt me to consider important information that might be impacting today's encounter and assessment, information from prior notes written by myself or my colleagues may have been "brought forward" into today's note. My signature on this note, however, is an attestation that I personally performed the exam, history, and/or decision-making noted today, and, unless otherwise indicated, the interactions with patient, family, and staff as well as the review of records all occurred today. I also attest that the listed assessment and stated plan reflect my best clinical judgment today based on the combination of historical information, prior notes, and today's exam/ interactions. When time spent is documented, it refers only to time spent today by the signer, or if indicated, combined time spent today by collaborating physician/nurse practitioner. .
[2018-03-19] MEDS ORDERED: QUEtiapine 25 MG Tablet PO SCH (21:00)
[2018-03-19 23:30] LABS: Enterovirus (PCR)Source csf; Enterovirus RNA Qual (PCR) Negative (Negative)
--- NOTE | 2018-03-20 07:59 | P.PNNEU ---
Subjective Active Medications: Active Medications Acetaminophen (Tylenol) 650 mg PO Q4H PRN PRN Reason: Temp > 100.4 Last Admin: 03/17/18 16:35 Dose: 650 mg Al Hydroxide/Mg Hydroxide (Milk Of Magnesia Liq) 30 ml PO Q12H PRN PRN Reason: Mild Constipation Amlodipine Besylate (Norvasc) 10 mg PO DAILY [facility] Last Admin: 03/19/18 09:18 Dose: 10 mg Bisacodyl (Dulcolax Supp) 10 mg RECTAL DAILY PRN PRN Reason: SEVERE CONSITIPATION Enalaprilat (Vasotec Inj) 2.5 mg IV.PUSH Q6H PRN PRN Reason: SBP>160, DBP>90 Last Admin: 03/20/18 03:08 Dose: 2.5 mg Heparin Sodium (Porcine) (Heparin Inj) 5,000 units SQ Q12HR [facility] Last Admin: 03/19/18 20:22 Dose: 5,000 units Hydralazine HCl (Apresoline Inj) 10 mg IV.PUSH Q4H PRN PRN Reason: SBP> OR = 180, DBP> OR = 100 Hydralazine HCl (Apresoline) 25 mg PO TID [facility] Last Admin: 03/19/18 17:36 Dose: 25 mg Hydrochlorothiazide (Hydrodiuril) 25 mg PO DAILY [facility] Last Admin: 03/19/18 09:18 Dose: 25 mg Lactulose (Lactulose Liq) 30 ml PO DAILY PRN PRN Reason: SEVERE CONSITIPATION Lisinopril (Prinivil) 40 mg PO DAILY [facility] Last Admin: 03/19/18 09:18 Dose: 40 mg Lorazepam (Ativan Inj) 1 mg IM Q6H PRN PRN Reason: SEVERE AGITATION Last Admin: 03/19/18 20:22 Dose: 1 mg Memantine (Namenda) 5 mg PO DAILY [facility] Stop: 03/24/18 09:00 Last Admin: 03/19/18 09:18 Dose: 5 mg Memantine (Namenda) 5 mg PO BID [facility] Stop: 04/01/18 21:00 Memantine (Namenda) 10 mg PO BID [facility] Metoprolol Succinate (Toprol Xl) 50 mg PO DAILY [facility] Last Admin: 03/19/18 09:18 Dose: 50 mg Ondansetron HCl (Zofran Inj) 4 mg IV.PUSH Q6H PRN PRN Reason: NAUSEA OR VOMITING Sennosides (Senokot) 17.2 mg PO Q12H PRN PRN Reason: Moderate Constipation Sodium Chloride (Ns Flush) 2 ml IV.FLUSH BID MIKEL Last Admin: 03/19/18 20:22 Dose: 2 ml Sodium Chloride (Ns Flush) 2 ml IV.FLUSH PRN PRN PRN Reason: FLUSH AFTER USING IV ACCESS Allergies/Adverse Reactions: Allergies Allergy/AdvReac Type Severity Reaction Status Date / Time No Known Allergies Allergy Verified 03/13/18 01:56 Physical Exam Vital signs: Vital Signs 03/19/18 08:00 03/19/18 12:00 03/19/18 16:00 Temperature 98.0 F 98.1 F Pulse Rate 75 76 91 H Respiratory Rate 17 24 Blood Pressure 162/88 H 173/84 H Pulse Oximetry 100 96 03/19/18 20:00 03/19/18 22:13 03/20/18 00:00 Temperature 98.2 F 98.6 F Pulse Rate 89 101 H 75 Respiratory Rate 18 17 Blood Pressure 158/82 H 186/87 H Pulse Oximetry 98 96 03/20/18 04:00 Temperature 97.7 F Pulse Rate 62 Respiratory Rate 18 Blood Pressure 193/84 H Pulse Oximetry 97 Intake & Output 03/19/18 03/20/18 03/20/18 18:59 06:59 18:59 Other: Date of Last Bowel Movement 03/17/18 Narrative: IVANNA SHANNONS NINOSKA Objective Laboratory Results - last 24 hr 03/16/18 03/16/18 03/16/18 12:47 15:53 15:53 CSF Herpes I DNA (PCR) Negative CSF Herpes II DNA (PCR) Negative Anti-Ri Ab (West Blot) Not Reportable Enterovirus Source csf Enterovirus RNA (PCR) Negative Microbiology 03/13/18 03:10 Aerobic Blood Culture - Final Blood - Peripheral No growth in 5 days Anaerobic Blood Culture - Final Staphylococcus capitis-capitis 03/16/18 09:10 Aerobic Blood Culture - Preliminary Blood - Peripheral No growth in 3 days Anaerobic Blood Culture - Preliminary No growth in 3 days 03/16/18 09:15 Aerobic Blood Culture - Preliminary Blood - Peripheral No growth in 3 days Anaerobic Blood Culture - Preliminary No growth in 3 days 03/16/18 15:53 Gram Stain - Final Lumbar Puncture CSF Culture - Final No growth in 72 hours Review/Management - Review/Management Plan: imp improved mri and eeg neg check LP have daughter call me today 03/15/18 encephalopathic he needs LP medically necessary i [facility] team rec 1 gm solumedrol and LP they are working on it watch renal fxt on acyclovir unclear if underlying mass 03/16/18 still on abt one blood cx positive his medical care is suffering due to not had LP yet if he cannot make his own medical decisions per psych then LP needs to be done under some sedation it is in his best medical interests 03/17/18 LP neg bp up i have dced his abt x acuyclovir will wait for the hsv pcr try solumedrol oob ok ----- 03/18/18 no change after steroid he needs to get oob sq hep ok hsv pend namenda started ----- 03/20/18 hsv neg on namenda i lowered seroquel oob agree will need placement
[2018-03-20] MEDS: QUEtiapine 25 MG Tablet PO SCH ×2 (09:03→21:04)
[2018-03-20] MEDS: Lisinopril 20 MG Tablet PO SCH (09:04)
[2018-03-20] MEDS: Heparin - SQ 10,000 UNITS/ML Vial SQ SCH ×2 (09:04→21:03)
[2018-03-20] MEDS: hydrALAZINE 25 MG Tablet PO SCH ×3 (09:04→17:50)
[2018-03-20] MEDS: amLODIPine 10 MG Tablet PO SCH (09:04)
[2018-03-20] MEDS: hydroCHLOROthiazide 25 MG Tablet PO SCH (09:04)
--- NOTE | 2018-03-20 10:38 | P.PNIM ---
Subjective Interval history: in no acute distress. no fever. on restraints. Physical Exam Vital signs: Last Vital Signs Temp 97.8 F 03/20/18 08:00 Pulse 70 03/20/18 08:00 Resp 18 03/20/18 08:00 BP 128/60 03/20/18 08:00 Pulse Ox 98 03/20/18 08:00 Intake & Output 03/18/18 03/19/18 03/20/18 03/21/18 06:59 06:59 06:59 06:59 Intake Total 2087.8 / 2087.8 1261.6 / 1261.6 Balance 2087.8 / 2087.8 1261.6 / 1261.6 Weight 83.8 kg 83 kg Constitutional no acute distress Routine Respiratory Exam Present CTA bilaterally Routine Cardiovascular Exam Present RRR Routine Abdominal Exam Present soft Routine Extremities Exam Comments: no pedal edema. Routine Neurological Exam mildly lethargic but arousable. Results Labs CBC & Chem 7: 03/18/18 08:31 03/18/18 08:31 Labs: Microbiology 03/13/18 03:10 Blood - Peripheral Aerobic Blood Culture - Final No growth in 5 days 03/13/18 03:10 Blood - Peripheral Anaerobic Blood Culture - Final Staphylococcus capitis-capitis 03/16/18 09:10 Blood - Peripheral Aerobic Blood Culture - Preliminary No growth in 3 days 03/16/18 09:10 Blood - Peripheral Anaerobic Blood Culture - Preliminary No growth in 3 days 03/16/18 09:15 Blood - Peripheral Aerobic Blood Culture - Preliminary No growth in 3 days 03/16/18 09:15 Blood - Peripheral Anaerobic Blood Culture - Preliminary No growth in 3 days 03/16/18 15:53 Lumbar Puncture Gram Stain - Final 03/16/18 15:53 Lumbar Puncture CSF Culture - Final No growth in 72 hours Procedures Procedures: 03/17 lumbar puncture with radiology Assessment and Plan (1) Hypertension: Code(s): I10 - Essential (primary) hypertension Status: Acute (2) Abnormal ABGs: Code(s): R79.81 - Abnormal blood-gas level Status: Acute (3) Acute encephalopathy: Code(s): G93.40 - Encephalopathy, unspecified Status: Acute Plan cute encephalopathy/altered mental status: Unclear etiology. -Head CT and brain MRI reviewed and unremarkable -Chest CTA negative for PE, no effusions, no congestive failure, no emphysema -Labs mostly unremarkable, ammonia wnl, no CO2 retention, BG wnl, UDS negative -No obvious signs of infection, UA, urine culture, and CXR negative -Blood cultures with no growth to date -EEG reviewed and unremarkable -off antibiotics. Acyclovir has been discontinued per neurology, HSV PCR negative; infectious disease also following patient. -Neurology consulted, appreciate assistance. Dr. Caro has initiated Namenda- Seroquel wasdecreased. -Psychiatry Dr. Julio lifted Ferro act and deemed patient lacked capacity for decision-making, -Appreciate palliative care assisting with designating sign as a healthcare proxy and establishing goals of care who has consented for a lumbar puncture which was completed yesterday by radiology. -soft restraints as needed, Haldol prn agitation RAFA screen negative, rheumatoid arthritis negative Accelerated Hypertension: consider hypertensive encephalopathy possibly contributing to above? -Continue on toprol XL 50mg qd, norvasc 10mg,Hydralazine and lisinopril 40 mg p.o. daily, HCTZ -IV Vasotec prn -Monitor BP, adjust antihypertensives as needed Hypokalemia: Resolved. DVT Prophylaxis: teds/SCDs; initiate Lovenox due to completion of LP. _ (1) Hypertension Qualifiers: Hypertension type:
--- NOTE | 2018-03-20 13:46 | P.PNID ---
Subjective Remarks: The patient is a 67 year old male who presents to the [facility] emergency department with a history of being found by a police department secretary on the side of the road in a vehicle that was disabled due to running out of gas in the afternoon on 03/12. The patient was noted to be confused, having difficulty remembering his location and was deemed unable to care for himself, therefore he was placed under a Ferro act and taken to the [facility]. He was initially calm and cooperative, but later became agitated and began to fight with the staff. Patient is being evaluated by neurology. MRI brain is negative. CTA chest negative. He has been afebrile. WBC is normal. Drug screen negative. CMP ok. ABG he is alkalotic. Patient has also been evaluated by psychiatry and deemed not capacitated to make medical decisions. He is being evaluated for LP, per neurology recommendations. 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 His ESR and CRP are both elevated. At the time of my exam, he remains encephalopathic. he is mumbling when I asked him questions. He is in 4 point restraints. He is afebrile. He had BC done in the ED, and one of the 2 BC has GPC in clusters Infectious disease consultation has been requested to assist with evaluation and treatment of bacteremia. Notes reviewed No fever Still with confusion, ahs restraints LP negative One BC with Coag Neg Staph C/W contaminant Not on any Abx or antiviral Received high dose steroid without any improvement Antibiotics: Acyclovir Lines: PIV Past Medical History: Hypertension Allergies/Adverse Reactions: Allergies No Known Allergies Allergy (Verified 03/13/18 01:56) Objective Vital Signs 03/19/18 16:00 03/19/18 20:00 03/19/18 22:13 Temperature 98.1 F 98.2 F Pulse Rate 91 H 89 101 H Respiratory Rate 24 18 Blood Pressure 173/84 H 158/82 H Pulse Oximetry 96 98 03/20/18 00:00 03/20/18 04:00 03/20/18 08:00 Temperature 98.6 F 97.7 F 97.8 F Pulse Rate 75 62 70 Respiratory Rate 17 18 18 Blood Pressure 186/87 H 193/84 H 128/60 Pulse Oximetry 96 97 98 03/20/18 12:00 03/20/18 13:08 Temperature Pulse Rate 104 H Respiratory Rate Blood Pressure 175/80 H Pulse Oximetry Intake & Output 03/19/18 03/20/18 03/20/18 18:59 06:59 18:59 Other: Date of Last Bowel Movement 03/17/18 03/16/18 09:10 Blood - Peripheral Aerobic Blood Culture - Preliminary No growth in 4 days 03/16/18 09:10 Blood - Peripheral Anaerobic Blood Culture - Preliminary No growth in 4 days 03/16/18 09:15 Blood - Peripheral Aerobic Blood Culture - Preliminary No growth in 4 days 03/16/18 09:15 Blood - Peripheral Anaerobic Blood Culture - Preliminary No growth in 4 days 03/13/18 03:10 Blood - Peripheral Aerobic Blood Culture - Final No growth in 5 days 03/13/18 03:10 Blood - Peripheral Anaerobic Blood Culture - Final Staphylococcus capitis-capitis 03/16/18 15:53 Lumbar Puncture Gram Stain - Final 03/16/18 15:53 Lumbar Puncture CSF Culture - Final No growth in 72 hours 03/16/18 15:53 Cerebral Spinal Fluid - Lumbar Puncture Acid Fast Bacilli Smear - Final No acid fast bacilli seen 03/16/18 15:53 Cerebral Spinal Fluid - Lumbar Puncture Mycobacterial Culture - Pending 03/13/18 03:08 Blood - Peripheral Aerobic Blood Culture - Final No growth in 5 days 03/13/18 03:08 Blood - Peripheral Anaerobic Blood Culture - Final No growth in 5 days Imaging: ITS Impressions Chest CTA 03/13/18 00:00 CONCLUSION: 1. Negative for central pulmonary emboli. 2. There is no pericardial effusion. 3. I don't see evidence for congestive failure. 4. I do not see significant emphysematous changes. Head MRI 03/13/18 00:00 CONCLUSION: 1. Grossly unremarkable MRI of the brain. No definite acute intracranial pathology. Chest X-Ray 03/13/18 01:56 CONCLUSION: No acute cardiopulmonary disease identified. Head CT 03/13/18 01:56 CONCLUSION: No acute intracranial findings. . Lumbar Puncture Fluoroscopy 03/16/18 12:31 CONCLUSION: 1. Uncomplicated fluoroscopically guided lumbar puncture. Physical Exam: GENERAL: awakens, mumbling when answering my questions, has 4 point restraints, not in respiratory distress. SKIN: Cool and dry. No generalized rash EYES: [place] conjunctiva. No petechia or hemorrhage. No scleral icterus. No injection or drainage. EARS, NOSE AND THROAT: Mucous membranes pink and moist. Unable to examine oropharynx. NECK: Trachea midline. Supple and not tender, no meningeal signs. No nuchal rigidity CARDIOVASCULAR: Regular rate and rhythm. No murmurs, rubs or gallops heard RESPIRATORY: Clear to auscultation. Breath sounds equal bilaterally. No rales , wheezing or rhonchi ABDOMEN: Soft, non-tender, nondistended. Bowel sounds present and normoactive. No guarding. No rebound. No organomegaly. EXTREMITIES: No clubbing, cyanosis, or edema. NEUROLOGICAL: Awakens, mumbling. No facial asymmetry, pupils equal and reactive. Moving extremities. PSYCHIATRIC: Not following, has restraints LINE: No evidence of infection Assessment and Plan - Plan Impression One (+) BC with Coag Neg Staph C/W contaminant Encephalopathy, etiology? - work-up in progress - LP unremarkable Recommendation No evidence of TRIAGE TECHNICIAN infection to explain his change in mental status He has been off Abx and Acyclovir Nothing to add from ID standpoint No need to Rx one (+) BC with Coag Neg Staph I will sign off Please reconsult if with any new ID issue or question
[2018-03-21] MEDS: QUEtiapine 25 MG Tablet PO SCH ×2 (09:24→21:48)
[2018-03-21] MEDS: Lisinopril 20 MG Tablet PO SCH (09:24)
[2018-03-21] MEDS: hydroCHLOROthiazide 25 MG Tablet PO SCH (09:24)
[2018-03-21] MEDS: Heparin - SQ 10,000 UNITS/ML Vial SQ SCH ×2 (09:25→21:47)
[2018-03-21] MEDS: hydrALAZINE 25 MG Tablet PO SCH ×3 (09:25→17:52)
[2018-03-21] MEDS: amLODIPine 10 MG Tablet PO SCH (09:25)
--- NOTE | 2018-03-21 09:25 | P.PNNEU ---
Subjective Active Medications: Active Medications Acetaminophen (Tylenol) 650 mg PO Q4H PRN PRN Reason: Temp > 100.4 Last Admin: 03/17/18 16:35 Dose: 650 mg Al Hydroxide/Mg Hydroxide (Milk Of Magnesia Liq) 30 ml PO Q12H PRN PRN Reason: Mild Constipation Amlodipine Besylate (Norvasc) 10 mg PO DAILY [facility] Last Admin: 03/20/18 09:04 Dose: 10 mg Bisacodyl (Dulcolax Supp) 10 mg RECTAL DAILY PRN PRN Reason: SEVERE CONSITIPATION Enalaprilat (Vasotec Inj) 2.5 mg IV.PUSH Q6H PRN PRN Reason: SBP>160, DBP>90 Last Admin: 03/20/18 03:08 Dose: 2.5 mg Heparin Sodium (Porcine) (Heparin Inj) 5,000 units SQ Q12HR [facility] Last Admin: 03/20/18 21:03 Dose: 5,000 units Hydralazine HCl (Apresoline Inj) 10 mg IV.PUSH Q4H PRN PRN Reason: SBP> OR = 180, DBP> OR = 100 Hydralazine HCl (Apresoline) 25 mg PO TID [facility] Last Admin: 03/20/18 17:50 Dose: 25 mg Hydrochlorothiazide (Hydrodiuril) 25 mg PO DAILY [facility] Last Admin: 03/20/18 09:04 Dose: 25 mg Lactulose (Lactulose Liq) 30 ml PO DAILY PRN PRN Reason: SEVERE CONSITIPATION Lisinopril (Prinivil) 40 mg PO DAILY [facility] Last Admin: 03/20/18 09:04 Dose: 40 mg Lorazepam (Ativan Inj) 1 mg IM Q6H PRN PRN Reason: SEVERE AGITATION Last Admin: 03/21/18 06:03 Dose: 1 mg Memantine (Namenda) 5 mg PO DAILY [facility] Stop: 03/24/18 09:00 Last Admin: 03/20/18 09:04 Dose: 5 mg Memantine (Namenda) 5 mg PO BID [facility] Stop: 04/01/18 21:00 Memantine (Namenda) 10 mg PO BID [facility] Metoprolol Succinate (Toprol Xl) 50 mg PO DAILY [facility] Last Admin: 03/20/18 09:04 Dose: 50 mg Ondansetron HCl (Zofran Inj) 4 mg IV.PUSH Q6H PRN PRN Reason: NAUSEA OR VOMITING Quetiapine Fumarate (Seroquel) 12.5 mg PO BID [facility] Last Admin: 03/20/18 21:04 Dose: 12.5 mg Sennosides (Senokot) 17.2 mg PO Q12H PRN PRN Reason: Moderate Constipation Sodium Chloride (Ns Flush) 2 ml IV.FLUSH BID [facility] Last Admin: 03/20/18 21:03 Dose: 2 ml Sodium Chloride (Ns Flush) 2 ml IV.FLUSH PRN PRN PRN Reason: FLUSH AFTER USING IV ACCESS Allergies/Adverse Reactions: Allergies Allergy/AdvReac Type Severity Reaction Status Date / Time No Known Allergies Allergy Verified 03/13/18 01:56 Physical Exam Vital signs: Vital Signs 03/20/18 12:00 03/20/18 13:08 03/20/18 14:30 Temperature 97.8 F Pulse Rate 95 H Respiratory Rate 18 Blood Pressure 212/98 H 175/80 H 140/60 Pulse Oximetry 97 03/20/18 16:00 03/20/18 20:00 03/20/18 23:50 Temperature 98.0 F 98.1 F 97.9 F Pulse Rate 61 72 102 H Respiratory Rate 18 17 18 Blood Pressure 168/75 H 163/75 H 160/94 H Pulse Oximetry 98 97 97 03/21/18 00:00 03/21/18 04:00 Temperature 99 F Pulse Rate 67 59 L Respiratory Rate 18 Blood Pressure 132/76 Pulse Oximetry 98 Intake & Output 03/20/18 03/21/18 03/21/18 18:59 06:59 18:59 Intake Total 0 / 0 100 / 100 Balance 0 / 0 100 / 100 Weight 78.6 kg Intake: Oral 0 / 0 100 / 100 Other: # Voids 2 # Incontinent Voids 2 Date of Last Bowel Movement 03/17/18 # Bowel Movements 0 Narrative: a little groggy and mumbling Objective Laboratory Results - last 24 hr 03/16/18 03/16/18 15:53 15:53 CSF VDRL Non-reactive CSF Cryptococcus Ag Not detected Microbiology 03/16/18 09:10 Aerobic Blood Culture - Preliminary Blood - Peripheral No growth in 4 days Anaerobic Blood Culture - Preliminary No growth in 4 days 03/16/18 09:15 Aerobic Blood Culture - Preliminary Blood - Peripheral No growth in 4 days Anaerobic Blood Culture - Preliminary No growth in 4 days Review/Management - Review/Management Plan: imp improved mri and eeg neg check LP have daughter call me today 03/15/18 encephalopathic he needs LP medically necessary i [facility] med team rec 1 gm solumedrol and LP they are working on it watch renal fxt on acyclovir unclear if underlying mass 03/16/18 still on abt one blood cx positive his medical care is suffering due to not had LP yet if he cannot make his own medical decisions per psych then LP needs to be done under some sedation it is in his best medical interests 03/17/18 LP neg bp up i have dced his abt x acuyclovir will wait for the hsv pcr try solumedrol oob ok ----- 03/18/18 no change after steroid he needs to get oob sq hep ok hsv pend namenda started ----- 03/20/18 hsv neg on namenda i lowered seroquel oob agree will need placement 03/21/18 got ativan 6 am today everytime i go in q am he is groggy limit sedatives placement namenda
--- NOTE | 2018-03-21 10:50 | P.PNIM ---
Subjective Interval history: in no acute distress. however still on restraints. Physical Exam Vital signs: Last Vital Signs Temp 99 F 03/21/18 04:00 Pulse 98 H 03/21/18 08:00 Resp 18 03/21/18 04:00 BP 132/76 03/21/18 04:00 Pulse Ox 98 03/21/18 04:00 Intake & Output 03/19/18 03/20/18 03/21/18 03/22/18 06:59 06:59 06:59 06:59 Intake Total 1261.6 / 1261.6 100 / 100 Balance 1261.6 / 1261.6 100 / 100 Weight 83 kg 78.6 kg Constitutional no acute distress Routine Respiratory Exam Present CTA bilaterally Routine Cardiovascular Exam Present RRR Routine Abdominal Exam Present soft Routine Extremities Exam Comments: no pedal edema. Routine Neurological Exam Present alert Results Labs CBC & Chem 7: 03/18/18 08:31 03/18/18 08:31 Labs: Microbiology 03/16/18 09:10 Blood - Peripheral Aerobic Blood Culture - Preliminary No growth in 4 days 03/16/18 09:10 Blood - Peripheral Anaerobic Blood Culture - Preliminary No growth in 4 days 03/16/18 09:15 Blood - Peripheral Aerobic Blood Culture - Preliminary No growth in 4 days 03/16/18 09:15 Blood - Peripheral Anaerobic Blood Culture - Preliminary No growth in 4 days Procedures Procedures: 03/17 lumbar puncture with radiology Assessment and Plan (1) Hypertension: Code(s): I10 - Essential (primary) hypertension Status: Acute (2) Abnormal ABGs: Code(s): R79.81 - Abnormal blood-gas level Status: Acute (3) Acute encephalopathy: Code(s): G93.40 - Encephalopathy, unspecified Status: Acute Plan cute encephalopathy/altered mental status: Unclear etiology. -Head CT and brain MRI reviewed and unremarkable -Chest CTA negative for PE, no effusions, no congestive failure, no emphysema -Labs mostly unremarkable, ammonia wnl, no CO2 retention, BG wnl, UDS negative -No obvious signs of infection, UA, urine culture, and CXR negative -Blood cultures with no growth to date -EEG reviewed and unremarkable -off antibiotics. Acyclovir has been discontinued per neurology, HSV PCR negative; infectious disease also following patient. -Neurology consulted, appreciate assistance. Dr. Caro has initiated Namenda- Seroquel was decreased. -Psychiatry Dr. Julio lifted Ferro act and deemed patient lacked capacity for decision-making, -Appreciate palliative care assisting with designating sign as a healthcare proxy and establishing goals of care who has consented for a lumbar puncture which was completed yesterday by radiology. -soft restraints as needed, Haldol prn agitation RAFA screen negative, rheumatoid arthritis negative Accelerated Hypertension: consider hypertensive encephalopathy possibly contributing to above? -Continue on toprol XL 50mg qd, norvasc 10mg,Hydralazine and lisinopril 40 mg p.o. daily, HCTZ -IV Vasotec prn -Monitor BP, adjust antihypertensives as needed Hypokalemia: Resolved. DVT Prophylaxis: teds/SCDs; initiate Lovenox due to completion of LP. _ (1) Hypertension Qualifiers: Hypertension type:
[2018-03-21 13:54] LABS: Neuronal Nuclear Ab (HU) Titer ND titer (<1:40); Neuronal Nuclear Ab (RI) Titer ND titer (<1:40); Neuronal Nuclear(HU)Ab Screen FLUORESCENCE NOTED (NEGATIVE); Neuronal Nuclear(RI)Ab Screen FLUORESCENCE NOTED (NEGATIVE); Purkinje Ab Titer ND titer (<1:40); RI Ab Western Blot NEGATIVE (NEGATIVE); Yo Ab Western Blot Confimation NEGATIVE (NEGATIVE)
--- NOTE | 2018-03-21 18:58 | P.PNPAL ---
Reason for Visit Reason for visit: a. To assist with evaluation and management of symptoms including: Confusion, weakness b. To assist medical decision maker(s) with: better understanding of current medical conditions; weighing benefits/burdens of medical treatment options; making medical treatment decisions. Subjective Subjective/Interval History: This is a 67-year-old male with a history of hypertension and paranoia who was found by a policewoman on the side of the road in a vehicle that was disabled as it had run out of gas afternoon on 03/12. Patient was noted to be confused, unsure of his location and deemed unable to take care of himself and was therefore Ferro acted to [facility]. After admission he became agitated and began to fight with the staff and was transferred to [place] for further evaluation. He was found to be oriented to person only. He reported that he was from [place] did have a brother and sister in [facility]. He had noted tremors over the past 6 months that have been increasing but has not had these worked up. He denies any substance abuse. Patient is seen today for follow-up of symptom management confusion, weakness and to assist in goals of medical treatment. Patient remains with some confusion and lethargy today. He was agitated earlier and received Ativan at 6 AM. He remains lethargic at this evaluation at 1430 p.m. Seroquel had been decreased by neurology from 25 mg p.o. twice daily to 12.5 mg p.o. twice daily. He continues to have generalized weakness, moderate, worsening with continued bedbound status and confusion, as well as decreased p.o. intake. . Family/Friend Interactions: Spoke with patient's brother, Ronny Conte, at bedside. He was attempting to get the patient did eat lunch but due to his lethargy he was not engaging. Spoke with the case maker who is interacting with [facility] in [place] to evaluate the patient for possible placement closer to family for rehabilitation. . Objective Vital Signs: Vital Signs 03/20/18 20:00 03/20/18 23:50 03/21/18 00:00 Temperature 98.1 F 97.9 F Pulse Rate 72 102 H 67 Respiratory Rate 17 18 Blood Pressure 163/75 H 160/94 H Pulse Oximetry 97 97 03/21/18 04:00 03/21/18 08:00 03/21/18 12:00 Temperature 99 F 98.6 F 98.6 F Pulse Rate 59 L 61 82 Respiratory Rate 18 20 20 Blood Pressure 132/76 180/86 H 133/75 Pulse Oximetry 98 97 92 L 03/21/18 16:00 Temperature 98.2 F Pulse Rate 60 Respiratory Rate 20 Blood Pressure 120/68 Pulse Oximetry 97 Intake & Output 03/20/18 03/21/18 03/21/18 18:59 06:59 18:59 Intake Total 0 / 0 100 / 100 360 / 360 Balance 0 / 0 100 / 100 360 / 360 Weight 173 lb 4.533 oz Intake: Oral 0 / 0 100 / 100 360 / 360 Other: # Voids 2 2 # Incontinent Voids 2 Date of Last Bowel Movement 03/17/18 # Bowel Movements 0 0 Physical Exam: CONSTITUTIONAL/GENERAL: This is an adequately nourished patient, in no apparent distress. ENT: Hearing grossly normal. Nose without bleeding or purulent drainage. Throat without visible erythema, exudates, masses, or lesions. NECK: Trachea midline. Supple, nontender. No palpable thyroid enlargement or nodularity. CARDIOVASCULAR: Regular rate and rhythm without murmurs, gallops, or rubs. No JVD. Peripheral pulses symmetric. RESPIRATORY/CHEST: Symmetric, unlabored respirations. Clear to auscultation. Breath sounds equal bilaterally. No wheezes, rales, or rhonchi. GASTROINTESTINAL: Abdomen soft, non-tender, nondistended. No hepato-splenomegaly , or palpable masses. No guarding. Bowel sounds present. GENITOURINARY: Without palpable bladder distension. MUSCULOSKELETAL: Extremities without clubbing, cyanosis, or edema. No joint tenderness or effusion noted. No calf tenderness. No mottling or clubbing. NEUROLOGICAL: Lethargic, restrained, not speaking or interacting today, able to move all extremities. PSYCHIATRIC: Lethargic. . Diagnostic Tests Laboratory: Laboratory Results - last 72 hr 03/16/18 03/16/18 03/16/18 12:47 15:53 15:53 CSF VDRL CSF Lyme Disease DNA CSF Cryptococcus Ag Not detected CSF Herpes I DNA (PCR) CSF Herpes II DNA (PCR) Anti-HU Antibody Titer ND Anti-Hu Antibody Fluorescence noted A Anti-Hu Ab ([place]) Negative Anti-RI Ab Titer ND Anti-RI Antibody Fluorescence noted A Anti-Ri Ab ([place]) Negative Anti-Yo Ab ([place]) Negative Anti-Purkinje Ab Titer ND Anti-Purkinje Cell Ab Fluorescence noted A Enterovirus Source csf Enterovirus RNA (PCR) Negative 03/16/18 03/16/18 03/16/18 15:53 15:53 15:53 CSF VDRL Non-reactive CSF Lyme Disease DNA Not detected CSF Cryptococcus Ag CSF Herpes I DNA (PCR) Negative CSF Herpes II DNA (PCR) Negative Anti-HU Antibody Titer Anti-Hu Antibody Anti-Hu Ab ([place]) Anti-RI Ab Titer Anti-RI Antibody Anti-Ri Ab ([place]) Anti-Yo Ab ([place]) Anti-Purkinje Ab Titer Anti-Purkinje Cell Ab Enterovirus Source Enterovirus RNA (PCR) Result Diagrams: 03/18/18 08:31 03/18/18 08:31 Microbiology: Microbiology 03/16/18 09:10 Aerobic Blood Culture - Final Blood - Peripheral No growth in 5 days Anaerobic Blood Culture - Final No growth in 5 days 03/16/18 09:15 Aerobic Blood Culture - Final Blood - Peripheral No growth in 5 days Anaerobic Blood Culture - Final No growth in 5 days 03/13/18 03:10 Aerobic Blood Culture - Final Blood - Peripheral No growth in 5 days Anaerobic Blood Culture - Final Staphylococcus capitis-capitis 03/16/18 15:53 Gram Stain - Final Lumbar Puncture CSF Culture - Final No growth in 72 hours 03/16/18 15:53 Acid Fast Bacilli Smear - Final Cerebral Spinal Fluid - Lumbar Puncture No acid fast bacilli seen Imaging: ITS Impressions Chest CTA 03/13/18 00:00 CONCLUSION: 1. Negative for central pulmonary emboli. 2. There is no pericardial effusion. 3. I don't see evidence for congestive failure. 4. I do not see significant emphysematous changes. Head MRI 03/13/18 00:00 CONCLUSION: 1. Grossly unremarkable MRI of the brain. No definite acute intracranial pathology. Chest X-Ray 03/13/18 01:56 CONCLUSION: No acute cardiopulmonary disease identified. Head CT 03/13/18 01:56 CONCLUSION: No acute intracranial findings. . Lumbar Puncture Fluoroscopy 03/16/18 12:31 CONCLUSION: 1. Uncomplicated fluoroscopically guided lumbar puncture. Procedures: 03/16: Lumbar puncture . Assessment and Plan - Disease Oriented Problem List (1) Acute encephalopathy (2) Abnormal ABGs (3) Hypertension (4) Altered mental status Pertinent Non-Medical Issues: Psychosocial: Patient was born in [place] moved to [place] many decades ago. 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 He was and has 1 son. He was 2 years ago. Spiritual: Assistant Project Manager available. Legal: No advance directives available. His son is his decision maker by proxy. Ethical issues impacting care: Patient is not capacitated for decision-making per psychiatry. . Important Contacts: Son: Evens Conte -healthcare proxy decision-maker Sister: Belen Lyles Family: Trisha Carrington . Prognosis: His prognosis is guarded. He has been exhibiting a cognitive decline for 6 months and is showing tremors with no verifiable history of having been diagnosed with any neurologic disease. Given his family history of Parkinson's , this is a possible diagnosis. Attempted to confirm via his primary care provider, Dr. Paul Falcon in [place] , however office is closed for the weekend. At this time he has been declared incapacitated for decision-making by psychiatry. His son wishes to continue aggressive care. It is uncertain if the patient will ever regain capacity. Workup continues, neurology following. . Code Status: Full Code Plan: PLAN: Legal decision maker: Patient is not capacitated for decision-making per psychiatry. It is uncertain whether he will regain capacity. He has 1 son, Evens Conte who would be his proxy decision-maker per [place] statutes. Goals: Aggressive at this time. CODE STATUS: FULL CODE SYMPTOMS: * Confusion: Per family, patient has a baseline paranoia and at home has visitors enter through the garage door for fear of being robbed through the front door. They state that in the community, outside his home, he appears more normal and interactive, but at his home he watches his neighbors activities and over the last 6 months has shown evidence of confusion and memory loss, forgetting to pay his bills, poor attendance to personal hygiene, accusing family members of stealing his license plate. No prior psychiatric illnesses known or diagnosed mental health issues. Psychiatry has evaluated, found him not to be capacitated, but not admissible to inpatient psychiatry and recommends continuing with medical workup as medically necessary. Lumbar puncture cultures pending. Urinalysis negative, toxicology negative, no significant metabolic derangements noted. Neurology following. All testing negative at this time, delirium versus dementia. * Weakness: Multifactorial to include bedbound status, restraints and poor nutrition. He continues to receive physical therapy services but his cognition is limiting his progress. Plan to initiate low-dose Seroquel to attempt to eliminate restraints and transition to bed alarm to help stabilize agitation and facilitate therapy. Family would like him transferred to [place] to complete his therapy once stabilized for discharge. Palliative care will continue to follow the patient during hospital course as condition evolves, to assist patient/decision-maker with understanding of their medical conditions, weighing benefits/burdens of treatment options, for clarification of goals of treatment. Additionally will assist with any symptoms of palliative concern. . Attestation Attestation: To help prompt me to consider important information that might be impacting today's encounter and assessment, information from prior notes written by myself or my colleagues may have been "brought forward" into today's note. My signature on this note, however, is an attestation that I personally performed the exam, history, and/or decision-making noted today, and, unless otherwise indicated, the interactions with patient, family, and staff as well as the review of records all occurred today. I also attest that the listed assessment and stated plan reflect my best clinical judgment today based on the combination of historical information, prior notes, and today's exam/ interactions. When time spent is documented, it refers only to time spent today by the signer, or if indicated, combined time spent today by collaborating physician/nurse practitioner. .
[2018-03-22] MEDS: Lisinopril 20 MG Tablet PO SCH (08:52)
[2018-03-22] MEDS: hydrALAZINE 25 MG Tablet PO SCH ×3 (08:53→18:17)
[2018-03-22] MEDS: QUEtiapine 25 MG Tablet PO SCH ×2 (08:53→20:50)
[2018-03-22] MEDS: amLODIPine 10 MG Tablet PO SCH (08:53)
[2018-03-22] MEDS: hydroCHLOROthiazide 25 MG Tablet PO SCH (08:53)
[2018-03-22] MEDS: Heparin - SQ 10,000 UNITS/ML Vial SQ SCH ×2 (08:53→20:51)
--- NOTE | 2018-03-22 10:36 | P.PNIM ---
Subjective Interval history: in no acute distress. was agitated last night and received Ativan. now on restraints. Physical Exam Vital signs: Last Vital Signs Temp 97.9 F 03/22/18 08:00 Pulse 75 03/22/18 08:00 Resp 18 03/22/18 08:00 BP 152/85 H 03/22/18 08:00 Pulse Ox 98 03/22/18 08:00 Intake & Output 03/20/18 03/21/18 03/22/18 03/23/18 06:59 06:59 06:59 06:59 Intake Total 100 / 100 460 / 460 50 / 50 Balance 100 / 100 460 / 460 50 / 50 Weight 78.6 kg 77.2 kg Constitutional no acute distress Routine Respiratory Exam Present CTA bilaterally Routine Cardiovascular Exam Present RRR Routine Abdominal Exam Present soft Routine Extremities Exam Comments: no pedal edema. Routine Neurological Exam mildly lethargic but arousable. Results Labs CBC & Chem 7: 03/18/18 08:31 03/18/18 08:31 Labs: Microbiology 03/16/18 09:10 Blood - Peripheral Aerobic Blood Culture - Final No growth in 5 days 03/16/18 09:10 Blood - Peripheral Anaerobic Blood Culture - Final No growth in 5 days 03/16/18 09:15 Blood - Peripheral Aerobic Blood Culture - Final No growth in 5 days 03/16/18 09:15 Blood - Peripheral Anaerobic Blood Culture - Final No growth in 5 days Procedures Procedures: 03/17 lumbar puncture with radiology Assessment and Plan (1) Hypertension: Code(s): I10 - Essential (primary) hypertension Status: Acute (2) Abnormal ABGs: Code(s): R79.81 - Abnormal blood-gas level Status: Acute (3) Acute encephalopathy: Code(s): G93.40 - Encephalopathy, unspecified Status: Acute Plan cute encephalopathy/altered mental status: Unclear etiology. -Head CT and brain MRI reviewed and unremarkable -Chest CTA negative for PE, no effusions, no congestive failure, no emphysema -Labs mostly unremarkable, ammonia wnl, no CO2 retention, BG wnl, UDS negative -No obvious signs of infection, UA, urine culture, and CXR negative -Blood cultures with no growth to date -EEG reviewed and unremarkable -off antibiotics. Acyclovir has been discontinued per neurology, HSV PCR negative; was evaluated by ID. -Neurology consulted, appreciate assistance. Dr. Caro has initiated Namenda- Seroquel was decreased. -Psychiatry Dr. Julio lifted Ferro act and deemed patient lacked capacity for decision-making, -Appreciate palliative care assisting with designating sign as a healthcare proxy and establishing goals of care who has consented for a lumbar puncture which was completed yesterday by radiology. -soft restraints as needed, Haldol prn agitation RAFA screen negative, rheumatoid arthritis negative Accelerated Hypertension: consider hypertensive encephalopathy possibly contributing to above? -Continue on toprol XL 50mg qd, norvasc 10mg,Hydralazine and lisinopril 40 mg p.o. daily, HCTZ -IV Vasotec prn -Monitor BP, adjust antihypertensives as needed Hypokalemia: Resolved. DVT Prophylaxis: teds/SCDs; initiate Lovenox due to completion of LP. _ (1) Hypertension Qualifiers: Hypertension type:
[2018-03-22] MEDS: Haloperidol Inj 5 MG/ML Ampul IM PRN (20:51)
[2018-03-23] MEDS: QUEtiapine 25 MG Tablet PO SCH ×2 (09:03→20:30)
[2018-03-23] MEDS: Lisinopril 20 MG Tablet PO SCH (09:03)
[2018-03-23] MEDS: hydrALAZINE 25 MG Tablet PO SCH ×3 (09:03→17:25)
[2018-03-23] MEDS: hydroCHLOROthiazide 25 MG Tablet PO SCH (09:03)
[2018-03-23] MEDS: amLODIPine 10 MG Tablet PO SCH (09:03)
[2018-03-23] MEDS: Heparin - SQ 10,000 UNITS/ML Vial SQ SCH ×2 (09:04→20:31)
--- NOTE | 2018-03-23 11:03 | P.PNIM ---
Subjective Interval history: in no acute distress. agitated at times and still on four-point restraints. d/w the RN at the bedside and no other acute issues noted over night. Physical Exam Vital signs: Last Vital Signs Temp 98.7 F 03/23/18 04:00 Pulse 100 H 03/23/18 08:00 Resp 18 03/23/18 04:00 BP 151/89 H 03/23/18 04:00 Pulse Ox 96 03/23/18 04:00 Intake & Output 03/21/18 03/22/18 03/23/18 03/24/18 06:59 06:59 06:59 06:59 Intake Total 100 / 100 460 / 460 890 / 890 Balance 100 / 100 460 / 460 890 / 890 Weight 78.6 kg 77.2 kg 75.9 kg Constitutional no acute distress Routine Respiratory Exam Present CTA bilaterally Routine Cardiovascular Exam Present RRR Routine Abdominal Exam Present soft Routine Extremities Exam Comments: no pedal edema. Routine Neurological Exam awake but confused- currently on restraints. Results Labs CBC & Chem 7: 03/18/18 08:31 03/18/18 08:31 Procedures Procedures: 03/17 lumbar puncture with radiology Assessment and Plan (1) Hypertension: Code(s): I10 - Essential (primary) hypertension Status: Acute (2) Abnormal ABGs: Code(s): R79.81 - Abnormal blood-gas level Status: Acute (3) Acute encephalopathy: Code(s): G93.40 - Encephalopathy, unspecified Status: Acute Plan cute encephalopathy/altered mental status: Unclear etiology. -Head CT and brain MRI reviewed and unremarkable -Chest CTA negative for PE, no effusions, no congestive failure, no emphysema -Labs mostly unremarkable, ammonia wnl, no CO2 retention, BG wnl, UDS negative -No obvious signs of infection, UA, urine culture, and CXR negative -Blood cultures with no growth to date -EEG reviewed and unremarkable -off antibiotics. Acyclovir has been discontinued per neurology, HSV PCR negative; was evaluated by ID. -Neurology consulted, appreciate assistance. Dr. Caro has initiated Namenda- Seroquel was decreased. -Psychiatry Dr. Julio lifted Ferro act and deemed patient lacked capacity for decision-making, -Appreciate palliative care assisting with designating sign as a healthcare proxy and establishing goals of care who has consented for a lumbar puncture which was completed yesterday by radiology. -soft restraints as needed, Haldol prn agitation RAFA screen negative, rheumatoid arthritis negative Accelerated Hypertension: consider hypertensive encephalopathy possibly contributing to above? -Continue on toprol XL 50mg qd, norvasc 10mg,Hydralazine and lisinopril 40 mg p.o. daily, HCTZ -IV Vasotec prn -Monitor BP, adjust antihypertensives as needed Hypokalemia: Resolved. DVT Prophylaxis: teds/SCDs; initiate Lovenox due to completion of LP. _ (1) Hypertension Qualifiers: Hypertension type:
[2018-03-23] MEDS: Haloperidol Inj 5 MG/ML Ampul IM PRN (20:31)
[2018-03-24] MEDS: Heparin - SQ 10,000 UNITS/ML Vial SQ SCH ×2 (10:07→20:49)
[2018-03-24] MEDS: Haloperidol Inj 5 MG/ML Ampul IM PRN (10:07)
[2018-03-24] MEDS: hydrALAZINE 25 MG Tablet PO SCH ×3 (10:16→18:05)
[2018-03-24] MEDS: amLODIPine 10 MG Tablet PO SCH (10:16)
[2018-03-24] MEDS: hydroCHLOROthiazide 25 MG Tablet PO SCH (10:16)
[2018-03-24] MEDS: QUEtiapine 25 MG Tablet PO SCH ×2 (10:17→20:49)
[2018-03-24] MEDS: Lisinopril 20 MG Tablet PO SCH (10:17)
--- NOTE | 2018-03-24 11:38 | P.PNIM ---
Subjective Interval history: in no acute distress. still confused and on restraints. Physical Exam Vital signs: Last Vital Signs Temp 97.6 F 03/24/18 04:00 Pulse 92 H 03/24/18 04:00 Resp 18 03/24/18 04:00 BP 127/65 03/24/18 04:00 Pulse Ox 100 03/24/18 04:00 Intake & Output 03/22/18 03/23/18 03/24/18 03/25/18 06:59 06:59 06:59 06:59 Intake Total 460 / 460 890 / 890 630 / 630 Balance 460 / 460 890 / 890 630 / 630 Weight 77.2 kg 75.9 kg 75.9 kg Constitutional no acute distress Routine Respiratory Exam Present CTA bilaterally Routine Cardiovascular Exam Present RRR Routine Abdominal Exam Present soft Routine Extremities Exam Comments: no pedal edema. Routine Neurological Exam Present alert Results Labs CBC & Chem 7: 03/18/18 08:31 03/18/18 08:31 Labs: Microbiology 03/16/18 15:53 Cerebral Spinal Fluid - Lumbar Puncture Acid Fast Bacilli Smear - Final No acid fast bacilli seen 03/16/18 15:53 Cerebral Spinal Fluid - Lumbar Puncture Mycobacterial Culture - Preliminary No growth in 1 week Procedures Procedures: 03/17 lumbar puncture with radiology Assessment and Plan (1) Hypertension: Code(s): I10 - Essential (primary) hypertension Status: Acute (2) Abnormal ABGs: Code(s): R79.81 - Abnormal blood-gas level Status: Acute (3) Acute encephalopathy: Code(s): G93.40 - Encephalopathy, unspecified Status: Acute Plan acute encephalopathy/altered mental status: Unclear etiology. -Head CT and brain MRI reviewed and unremarkable -Chest CTA negative for PE, no effusions, no congestive failure, no emphysema -Labs mostly unremarkable, ammonia wnl, no CO2 retention, BG wnl, UDS negative -No obvious signs of infection, UA, urine culture, and CXR negative -Blood cultures with no growth to date -EEG reviewed and unremarkable -off antibiotics. Acyclovir has been discontinued per neurology, HSV PCR negative; was evaluated by ID. -Neurology consulted, appreciate assistance. Dr. Caro has initiated Namenda- Seroquel was decreased. -Psychiatry Dr. Julio lifted Ferro act and deemed patient lacked capacity for decision-making, -Appreciate palliative care assisting with designating sign as a healthcare proxy and establishing goals of care who has consented for a lumbar puncture which was completed yesterday by radiology. -soft restraints as needed, Haldol prn agitation RAFA screen negative, rheumatoid arthritis negative Accelerated Hypertension: consider hypertensive encephalopathy possibly contributing to above? -Continue on toprol XL 50mg qd, norvasc 10mg,Hydralazine and lisinopril 40 mg p.o. daily, HCTZ -IV Vasotec prn -Monitor BP, adjust antihypertensives as needed Hypokalemia: Resolved. DVT Prophylaxis: teds/SCDs; initiate Lovenox due to completion of LP. _ (1) Hypertension Qualifiers: Hypertension type:
[2018-03-25] MEDS: hydrALAZINE 25 MG Tablet PO SCH ×3 (09:57→18:45)
[2018-03-25] MEDS: amLODIPine 10 MG Tablet PO SCH (09:58)
[2018-03-25] MEDS: QUEtiapine 25 MG Tablet PO SCH ×2 (10:00→21:18)
[2018-03-25] MEDS: Heparin - SQ 10,000 UNITS/ML Vial SQ SCH ×2 (10:01→21:18)
[2018-03-25] MEDS: Lisinopril 20 MG Tablet PO SCH (10:03)
[2018-03-25] MEDS: hydroCHLOROthiazide 25 MG Tablet PO SCH (10:07)
--- NOTE | 2018-03-25 10:41 | P.PNIM ---
Subjective Interval history: in no acute distress. currently on four-point restraints. Physical Exam Vital signs: Last Vital Signs Temp 97.8 F 03/25/18 04:00 Pulse 77 03/25/18 04:00 Resp 18 03/25/18 04:00 BP 147/65 H 03/25/18 04:00 Pulse Ox 99 03/25/18 04:00 Intake & Output 03/23/18 03/24/18 03/25/18 03/26/18 06:59 06:59 06:59 06:59 Intake Total 890 / 890 630 / 630 630 / 630 Balance 890 / 890 630 / 630 630 / 630 Weight 75.9 kg 75.9 kg Constitutional no acute distress Routine Respiratory Exam Present CTA bilaterally Routine Cardiovascular Exam Present RRR Routine Abdominal Exam Present soft Routine Extremities Exam Comments: no pedal edema. Routine Neurological Exam awake/ on restraints. Results Labs CBC & Chem 7: 03/18/18 08:31 03/18/18 08:31 Procedures Procedures: 03/17 lumbar puncture with radiology Assessment and Plan (1) Hypertension: Code(s): I10 - Essential (primary) hypertension Status: Acute (2) Abnormal ABGs: Code(s): R79.81 - Abnormal blood-gas level Status: Acute (3) Acute encephalopathy: Code(s): G93.40 - Encephalopathy, unspecified Status: Acute Plan acute encephalopathy/altered mental status: Unclear etiology. -Head CT and brain MRI reviewed and unremarkable -Chest CTA negative for PE, no effusions, no congestive failure, no emphysema -Labs mostly unremarkable, ammonia wnl, no CO2 retention, BG wnl, UDS negative -No obvious signs of infection, UA, urine culture, and CXR negative -Blood cultures with no growth to date -EEG reviewed and unremarkable -off antibiotics. Acyclovir has been discontinued per neurology, HSV PCR negative; was evaluated by ID. -Neurology consulted, appreciate assistance. Dr. Caro has initiated Namenda- Seroquel was decreased. -Psychiatry Dr. Julio lifted Ferro act and deemed patient lacked capacity for decision-making, -Appreciate palliative care assisting with designating sign as a healthcare proxy and establishing goals of care who has consented for a lumbar puncture which was completed yesterday by radiology. -soft restraints as needed, Haldol prn agitation RAFA screen negative, rheumatoid arthritis negative Accelerated Hypertension: consider hypertensive encephalopathy possibly contributing to above? -Continue on toprol XL 50mg qd, norvasc 10mg,Hydralazine and lisinopril 40 mg p.o. daily, HCTZ -Monitor BP, adjust antihypertensives as needed Hypokalemia: Resolved. DVT Prophylaxis: teds/SCDs; initiate Lovenox due to completion of LP. _ (1) Hypertension Qualifiers: Hypertension type:
[2018-03-26] MEDS: QUEtiapine 25 MG Tablet PO SCH ×2 (09:37→21:14)
[2018-03-26] MEDS: Heparin - SQ 10,000 UNITS/ML Vial SQ SCH ×2 (09:37→21:14)
[2018-03-26] MEDS: amLODIPine 10 MG Tablet PO SCH (09:37)
[2018-03-26] MEDS: hydrALAZINE 25 MG Tablet PO SCH ×3 (09:38→17:51)
[2018-03-26] MEDS: hydroCHLOROthiazide 25 MG Tablet PO SCH (09:38)
[2018-03-26] MEDS: Lisinopril 20 MG Tablet PO SCH (09:38)
[2018-03-26] MEDS: Haloperidol Inj 5 MG/ML Ampul IM PRN ×2 (11:11→21:30)
--- NOTE | 2018-03-26 11:35 | P.PNIM ---
Subjective Interval history: Patient seen and evaluated this morning at bedside. Patient appears to still be confused although he knows his name but not much else. Physical Exam Vital signs: Last Vital Signs Temp 97.9 F 03/26/18 08:00 Pulse 73 03/26/18 08:00 Resp 18 03/26/18 08:00 BP 106/61 03/26/18 08:00 Pulse Ox 98 03/26/18 08:00 Intake & Output 03/24/18 03/25/18 03/26/18 03/27/18 06:59 06:59 06:59 06:59 Intake Total 630 / 630 630 / 630 1681 / 1681 Output Total 600 / 600 Balance 630 / 630 630 / 630 1081 / 1081 Weight 75.9 kg 75.9 kg Confused Cardiovascular: S1/S2 Respiratory: Clear to auscultation Gastrointestinal: Soft, nontender, nondistended, no guarding rebound extremity: No edema Neurology: Unable to assess due to mental status Results Labs CBC & Chem 7: 03/18/18 08:31 03/18/18 08:31 Procedures Procedures: 03/17 lumbar puncture with radiology Assessment and Plan (1) Hypertension: Code(s): I10 - Essential (primary) hypertension Status: Acute (2) Abnormal ABGs: Code(s): R79.81 - Abnormal blood-gas level Status: Acute (3) Acute encephalopathy: Code(s): G93.40 - Encephalopathy, unspecified Status: Acute Plan Patient is a 68-year-old male with history of hypertension presenting with altered mental status of unclear etiology Neurology:acute encephalopathy/altered mental status Unclear etiology at this time per patient's altered mental status. Head MRI grossly unremarkable with no definitive acute intracranial pathology. Head CT with no acute intracranial finding. Chest CTA negative for evidence of acute pulmonary embolism. Lumbar puncture has not revealed any etiology to this point. -Labs mostly unremarkable, ammonia wnl, no CO2 retention, BG wnl, UDS negative -No obvious signs of infection, UA, urine culture, and CXR negative -Blood cultures with no growth to date -EEG reviewed and unremarkable -off antibiotics. Acyclovir has been discontinued per neurology, HSV PCR negative; during hospitalization was evaluated by ID. -Neurology consulted, appreciate assistance. Dr. Caro has initiated Namenda- Seroquel 25 mg twice daily. -Psychiatry Dr. Julio lifted Ferro act and deemed patient lacked capacity for decision-making, -Appreciate palliative care assisting with designating sign as a healthcare proxy and establishing goals of care. -soft restraints as needed, Haldol prn agitation RAFA screen negative, rheumatoid arthritis negative Accelerated Hypertension: consider hypertensive encephalopathy possibly contributing to above? -Continue on toprol XL 50mg qd, norvasc 10mg,Hydralazine and lisinopril 40 mg p.o. daily, HCTZ -Monitor BP, adjust antihypertensives as needed Hypokalemia: Resolved. DVT Prophylaxis: teds/SCDs; initiate Lovenox due to completion of LP. _ (1) Hypertension Qualifiers: Hypertension type:
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
[2018-03-27] MEDS: amLODIPine 10 MG Tablet PO SCH (08:54)
[2018-03-27] MEDS: hydrALAZINE 25 MG Tablet PO SCH ×2 (08:54→13:19)
[2018-03-27] MEDS: QUEtiapine 25 MG Tablet PO SCH ×2 (08:54→21:07)
[2018-03-27] MEDS: Lisinopril 20 MG Tablet PO SCH (08:54)
[2018-03-27] MEDS: hydroCHLOROthiazide 25 MG Tablet PO SCH (08:54)
[2018-03-27] MEDS: Heparin - SQ 10,000 UNITS/ML Vial SQ SCH ×2 (08:55→21:07)
--- NOTE | 2018-03-27 13:18 | P.PNIM ---
Subjective Interval history: Patient seen and evaluated this morning at bedside. Patient still appears to be confused to events leading to his hospitalization. Case briefly discussed with nursing staff and patient was able to walk briefly with physical therapy but otherwise has not been very functional. Family would like to take patient to another facility and I will call and discuss this with them and confirm that in fact there is prove of decision making of capacity by family member who would like to transfer patient. Physical Exam Vital signs: Last Vital Signs Temp 97.4 F L 03/27/18 12:00 Pulse 52 L 03/27/18 12:00 Resp 18 03/27/18 12:00 BP 93/51 L 03/27/18 12:00 Pulse Ox 98 03/27/18 12:00 Intake & Output 03/25/18 03/26/18 03/27/18 03/28/18 06:59 06:59 06:59 06:59 Intake Total 630 / 630 1681 / 1681 540 / 540 Output Total 600 / 600 Balance 630 / 630 1081 / 1081 540 / 540 Weight 75.9 kg 75.1 kg General: Uncooperative with examination. Appears confused Cardiovascular: S1/S2 Respiratory: Clear to auscultation 70: No lower extremity edema Neurology: Unable to fully assess patient Results Labs CBC & Chem 7: 03/18/18 08:31 03/18/18 08:31 Procedures Procedures: 03/17 lumbar puncture with radiology Assessment and Plan (1) Hypertension: Code(s): I10 - Essential (primary) hypertension Status: Acute (2) Abnormal ABGs: Code(s): R79.81 - Abnormal blood-gas level Status: Acute (3) Acute encephalopathy: Code(s): G93.40 - Encephalopathy, unspecified Status: Acute Plan Patient is a 68-year-old male with history of hypertension presenting with altered mental status of unclear etiology Neurology:acute encephalopathy/altered mental status Unclear etiology at this time per patient's altered mental status. Head MRI grossly unremarkable with no definitive acute intracranial pathology. Head CT with no acute intracranial finding. Chest CTA negative for evidence of acute pulmonary embolism. Lumbar puncture has not revealed any etiology to this point. -Labs mostly unremarkable, ammonia wnl, no CO2 retention, BG wnl, UDS negative -No obvious signs of infection, UA, urine culture, and CXR negative -Blood cultures with no growth to date -EEG reviewed and unremarkable -off antibiotics. Acyclovir has been discontinued per neurology, HSV PCR negative; during hospitalization was evaluated by ID. -Neurology consulted, appreciate assistance. Dr. Caro has initiated Namenda- Seroquel 25 mg twice daily. -Psychiatry Dr. Julio lifted Ferro act and deemed patient lacked capacity for decision-making, -Appreciate palliative care assisting with designating sign as a healthcare proxy and establishing goals of care. -soft restraints as needed, Haldol prn agitation RAFA screen negative, rheumatoid arthritis negative -We will discuss briefly with neurology whether patient would benefit from possible admission to psychiatry dementia unit. We will send off serum ceruloplasmin level and copper level Accelerated Hypertension: consider hypertensive encephalopathy possibly contributing to above? -Continue on toprol XL 50mg qd, norvasc 10mg,Hydralazine and lisinopril 40 mg p.o. daily, HCTZ -Monitor BP, adjust antihypertensives as needed DVT Prophylaxis: Heparin subcu CODE STATUS: Full code _ (1) Hypertension Qualifiers: Hypertension type:
[2018-03-28] MEDS: QUEtiapine 25 MG Tablet PO SCH ×3 (08:21→22:16)
[2018-03-28] MEDS: hydroCHLOROthiazide 25 MG Tablet PO SCH (08:21)
[2018-03-28] MEDS: Lisinopril 20 MG Tablet PO SCH (08:21)
[2018-03-28] MEDS: Heparin - SQ 10,000 UNITS/ML Vial SQ SCH ×2 (08:25→22:16)
--- NOTE | 2018-03-28 13:33 | P.PNPSY ---
Subjective Remarks: This is a follow-up note on psychiatric consultation by Dr. Duarte on 03/15. His consultation is reviewed and agreed with progress notes reviewed also. Patient seen by me with nurse present throughout session he is an alert - Romanian male appears about his stated age is calm diffusely confused in all 4 spheres barely recognizing his own name. Staff states that he has been receiving Seroquel twice a day with some improvements in behaviors though he was somewhat difficult yesterday per the nurses history. She also states that family members are from [place] and visited and they wish to have their relative moved to a facility in the [place] area. Dr. Duarte he has lifted the Ferro act. I agree with that. Patient does not meet Ferro act criteria this man is suffering from dementia. Thus at this time my recommendation would be increase the Seroquel to 3 times a day perhaps 10 AM, 4 PM, and 10 PM. Patient is not a candidate for the psychiatric unit or for 4 E. It is okay by psych for case management and treatment team to arrange a transfer to a facility closer to the family if that is the family's wish. Thanks for the consult we will follow on a as needed basis Review of Systems All other systems reviewed negative except as stated in HPI Mental Status Examination Appearance: Appropriate Consciousness: Alert Orientation: Person Motor Activity: Other (Patient laying in bed unable to ascertain gait) Speech: Hesitant, Incoherent Language: Adequate, Other (Patient mumbling) Fund of Knowledge: Poor Attention and Concentration: Inadequate Memory: Impaired Mood: Other (Euthymic to restricted) Affect: Other (Decreased range and intensity) Thought Process & Associations: Disorganized Thought Content: Other (Disorganized) Hallucination Type: None Delusion Type: None Suicidal Ideation: No Suicidal Plan: No Suicidal Intention: No Homicidal Ideation: No Homicidal Plan: No Homicidal Intention: No Insight: Poor Judgment: Poor Assessment and Plan - Assessment (1) Dementia Code(s): F03.90 - Unspecified dementia without behavioral disturbance Status: Acute - Plan Plan: On psychiatric evaluation patient is calm, superficially cooperative, does not present any acute agitation or aggressive behavior. Unable to provide meaningful and reliable information for this assessment due to evidence of cognitive impairment that seems to be secondary to dementia. Delirium also needs to be carefully ruled out. He denies previous psychiatric history, denies depressive symptoms, he denies anxiety, he denies suicidal and homicidal ideation, denies visual and auditory hallucinations. Patient is unable to tell me the reason to be in the hospital. Patient does not meet criteria for involuntary psychiatric admission. The Ferro act will be lifted. Patient evidently does not have decision-making capacity to participate medical decisions at the moment. Consult palliative care to help with goals of care and also with discharge planning. Haldol 1-2 mg every 8 hours as needed aggressive behavior and agitation can be used. Hold if QTC is over 460. Consult appreciated I agree with above plan patient does not meet Ferro act criteria and does not meet criteria for inpatient psychiatric assessment. Would suggest medication adjustment as mentioned above. Would suggest treatment team meet with family to arrange for possible transfer of this patient to a facility closer to the family home Consult will follow up on an as-needed basis Justification for Continued Inpatient Stay: Case management and treatment team need to work with family to find appropriate placement near her home in [place] Discharge Planning: Treatment team needs to work with family to find appropriate placement near her home in [place]
--- NOTE | 2018-03-28 15:04 | P.PNIM ---
Subjective Interval history: Patient remains confused at moments and unable to give much information other than his name. Patient does not appear to be aware of why he is in the hospital or his current location at this time. Brief discussion with team about case and family would like to transfer patient to another hospital for continued workup and care. Ceruloplasmin levels pending Physical Exam Vital signs: Last Vital Signs Temp 97.8 F 03/28/18 12:00 Pulse 53 L 03/28/18 12:00 Resp 15 03/28/18 12:00 BP 92/51 L 03/28/18 12:00 Pulse Ox 98 03/28/18 12:00 Intake & Output 03/26/18 03/27/18 03/28/18 03/29/18 06:59 06:59 06:59 06:59 Intake Total 1681 / 1681 540 / 540 600 / 600 Output Total 600 / 600 Balance 1081 / 1081 540 / 540 600 / 600 Weight 75.9 kg 75.1 kg 74.8 kg General: Confused Cardiovascular: S1/S2 Respiratory: Unable to assess due to patient compliance Gastrointestinal: Soft, nontender, nondistended, no guarding or rebound Muscular skeletal: No asymmetry of upper extremities Neurology: Unable to fully assess due to mental status Results Labs CBC & Chem 7: 03/18/18 08:31 03/18/18 08:31 Procedures Procedures: 03/17 lumbar puncture with radiology Assessment and Plan (1) Dementia: Code(s): F03.90 - Unspecified dementia without behavioral disturbance Status: Acute Plan Patient is a 68-year-old male with history of hypertension presenting with altered mental status of unclear etiology Neurology:acute encephalopathy/altered mental status Unclear etiology at this time per patient's altered mental status. Head MRI grossly unremarkable with no definitive acute intracranial pathology. Head CT with no acute intracranial finding. Chest CTA negative for evidence of acute pulmonary embolism. Lumbar puncture has not revealed any etiology to this point. -Labs mostly unremarkable, ammonia wnl, no CO2 retention, BG wnl, UDS negative -No obvious signs of infection, UA, urine culture, and CXR negative -Blood cultures with no growth to date -EEG reviewed and unremarkable -off antibiotics. Acyclovir has been discontinued per neurology, HSV PCR negative; during hospitalization was evaluated by ID. -Neurology consulted, appreciate assistance. Currently signed off. Dr. Caro has initiated Namenda- Seroquel 25 mg twice daily. -Psychiatry Dr. Julio lifted Ferro act and deemed patient lacked capacity for decision-making, -Appreciate palliative care assisting with designating sign as a healthcare proxy and establishing goals of care. -soft restraints as needed, Haldol prn agitation RAFA screen negative, rheumatoid arthritis negative -Neurology recommendations appreciated via EMR and at this time do not recommend inpatient psychiatric treatment Follow-up ceruloplasmin level and copper level Accelerated Hypertension: consider hypertensive encephalopathy possibly contributing to above? -Continue on toprol XL 50mg qd, norvasc 10mg,Hydralazine and lisinopril 40 mg p.o. daily, HCTZ -Monitor BP, adjust antihypertensives as needed DVT Prophylaxis: Heparin subcu CODE STATUS: Full code Disposition: Family is interested in transferring patient. Will have transfer center arrange for possible transfer versus senior care placement for patient as an inpatient evaluation has been unremarkable to this point and it appears patient may have signs and symptoms concerning for dementia progressing _ (1) Dementia Qualifiers: Dementia type: Alzheimer's disease onset: Dementia behavioral disturbance :
--- NOTE | 2018-03-28 17:03 | P.PNPAL ---
Reason for Visit Reason for visit: a. To assist with evaluation and management of symptoms including: Confusion, weakness b. To assist medical decision maker(s) with: better understanding of current medical conditions; weighing benefits/burdens of medical treatment options; making medical treatment decisions. Subjective Subjective/Interval History: This is a 67-year-old male with a history of hypertension and paranoia who was found by a morals squad police officer on the side of the road in a vehicle that was disabled as it had run out of gas afternoon on 03/12. Patient was noted to be confused, unsure of his location and deemed unable to take care of himself and was therefore Ferro acted to [facility]. After admission he became agitated and began to fight with the staff and was transferred to [facility] for further evaluation. He was found to be oriented to person only. He reported that he was from [place] did have a brother and sister in [facility]. He had noted tremors over the past 6 months that have been increasing but has not had these worked up. He denies any substance abuse. Patient is seen today for follow-up of symptom management confusion, weakness and to assist in goals of medical treatment. Patient remains confused. On entrance to the room, patient was climbing out of bed with the bed alarm sounding. Attempted to have patient remain in bed and called for the nurse. Patient continued to try to climb out of bed. He has been followed by neurology who has done a thorough workup and determined no identifiable cause patient's confusion. The son states that the mental issues have been present for some time, but patient was previously able to walk and would eat. Family is concerned regarding patient's lack of nutritional intake. During previous visit when patient's brother, Ronny, was present, attempts were made to feed the patient and he would not awaken to eat. Nursing staff reports that in spite of attempts to feed him or assist him in eating himself, patient's appetite remains decreased and frequently refuses food. He was seen by Dr. Page from psychiatry at the request of Dr. Vega and found to not be a candidate for the psychiatric unit or medical psychiatric unit. He recommended an increase in Seroquel to 3 times a day at 10 AM 4 PM and 10 PM. He felt the patient did not meet Ferro act criteria or criteria for inpatient psychiatric assessment and recommended transfer of the patient to a facility closer to the family's home at the family's request. Physical therapy evaluation notes that patient refused to participate with therapy, keeping his eyes shut allowing passive range of motion to lower extremities. He is not following commands and resisted any effort to transfer him to the edge of the bed to sit up. He was noted to have poor balance and require moderate to maximum assistance x2 with a third person following with chair for ambulation and transferring from supine to sitting. . Family/Friend Interactions: Spoke with patient's son today, Evens, who stated the family was unhappy care and wanted to transfer the patient to [facility] where his primary care practices. The name and telephone number of his primary care provider was requested to initiate the transfer and he stated he would have to call me back with that information. At this time I have not received a call back with that. He was unable to confirm whether the patient's CP followed his own patients in the hospital and would be willing to accept him as an admission or whether the hospitalist service needed to be contacted by the transfer center to request the transfer. Relayed this information to Dr. Vega and to the outpatient case manager, Sally Downs, and provided both work and cell phone numbers for Evens to attempt contact. She was also unsuccessful in contacting him but did leave him messages to request callback. Once that information is obtained, Ms. Downs will contact the transfer center to initiate the process. . Objective Vital Signs: Vital Signs 03/27/18 20:00 03/28/18 00:00 03/28/18 04:00 Temperature 97.8 F Pulse Rate 60 61 54 L Respiratory Rate 16 Blood Pressure 115/59 L Pulse Oximetry 99 03/28/18 08:00 03/28/18 12:00 03/28/18 16:00 Temperature 96.8 F L 97.8 F Pulse Rate 50 L 60 51 L Respiratory Rate 14 15 Blood Pressure 100/60 92/51 L Pulse Oximetry 96 98 Intake & Output 03/27/18 03/28/18 03/28/18 18:59 06:59 18:59 Intake Total 360 / 360 240 / 240 Balance 360 / 360 240 / 240 Weight 164 lb 14.492 oz Intake: Oral 360 / 360 240 / 240 Other: # Incontinent Voids 2 # Urine Diapers 2 Date of Last Bowel Movement 03/21/18 # Bowel Movements 0 0 Physical Exam: CONSTITUTIONAL/GENERAL: This is an adequately nourished patient, in no apparent distress. ENT: Hearing grossly normal. Nose without bleeding or purulent drainage. Throat without visible erythema, exudates, masses, or lesions. NECK: Trachea midline. Supple, nontender. No palpable thyroid enlargement or nodularity. CARDIOVASCULAR: Regular rate and rhythm without murmurs, gallops, or rubs. No JVD. Peripheral pulses symmetric. RESPIRATORY/CHEST: Symmetric, unlabored respirations. Clear to auscultation. Breath sounds equal bilaterally. No wheezes, rales, or rhonchi. GASTROINTESTINAL: Abdomen soft, non-tender, nondistended. No hepato-splenomegaly , or palpable masses. No guarding. Bowel sounds present. GENITOURINARY: Without palpable bladder distension. MUSCULOSKELETAL: Extremities without clubbing, cyanosis, or edema. No joint tenderness or effusion noted. No calf tenderness. No mottling or clubbing. NEUROLOGICAL: Awake, alert, trying to climb out of bed, not following direction. PSYCHIATRIC: Irritable, not following direction. . Diagnostic Tests Result Diagrams: 03/18/18 08:31 03/18/18 08:31 Microbiology: Microbiology 03/16/18 15:53 Cerebral Spinal Fluid - Lumbar Puncture Acid Fast Bacilli Smear - Final No acid fast bacilli seen 03/16/18 15:53 Cerebral Spinal Fluid - Lumbar Puncture Mycobacterial Culture - Preliminary No growth in 1 week 03/16/18 09:10 Blood - Peripheral Aerobic Blood Culture - Final No growth in 5 days 03/16/18 09:10 Blood - Peripheral Anaerobic Blood Culture - Final No growth in 5 days 03/16/18 09:15 Blood - Peripheral Aerobic Blood Culture - Final No growth in 5 days 03/16/18 09:15 Blood - Peripheral Anaerobic Blood Culture - Final No growth in 5 days 03/13/18 03:10 Blood - Peripheral Aerobic Blood Culture - Final No growth in 5 days 03/13/18 03:10 Blood - Peripheral Anaerobic Blood Culture - Final Staphylococcus capitis-capitis 03/16/18 15:53 Lumbar Puncture Gram Stain - Final 03/16/18 15:53 Lumbar Puncture CSF Culture - Final No growth in 72 hours 03/13/18 03:08 Blood - Peripheral Aerobic Blood Culture - Final No growth in 5 days 03/13/18 03:08 Blood - Peripheral Anaerobic Blood Culture - Final No growth in 5 days 03/13/18 03:15 Clean Catch Urine Urine Culture - Final No growth in 48 hours Imaging: ITS Impressions Chest CTA 03/13/18 00:00 CONCLUSION: 1. Negative for central pulmonary emboli. 2. There is no pericardial effusion. 3. I don't see evidence for congestive failure. 4. I do not see significant emphysematous changes. Head MRI 03/13/18 00:00 CONCLUSION: 1. Grossly unremarkable MRI of the brain. No definite acute intracranial pathology. Chest X-Ray 03/13/18 01:56 CONCLUSION: No acute cardiopulmonary disease identified. Head CT 03/13/18 01:56 CONCLUSION: No acute intracranial findings. . Lumbar Puncture Fluoroscopy 03/16/18 12:31 CONCLUSION: 1. Uncomplicated fluoroscopically guided lumbar puncture. Procedures: 03/16: Lumbar puncture . Assessment and Plan - Disease Oriented Problem List (1) Abnormal ABGs (2) Acidosis, lactic (3) Acute encephalopathy (4) Altered mental status (5) Hypertension (6) Pyuria (7) Weakness Pertinent Non-Medical Issues: Psychosocial: Patient was born in [place] moved to [place] many decades ago. 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 He was and has 1 son. He was 2 years ago. Spiritual: [employer] available. Legal: No advance directives available. His son is his decision maker by proxy. Ethical issues impacting care: Patient is not capacitated for decision-making per psychiatry. . Important Contacts: Son: Evens Conte -healthcare proxy decision-maker Sister: Belen Lyles Family: Trisha Carrington . Prognosis: His prognosis is guarded. He has been exhibiting a cognitive decline for 6 months and is showing tremors with no verifiable history of having been diagnosed with any neurologic disease. Given his family history of Parkinson's , this is a possible diagnosis. Attempted to confirm via his primary care provider, Dr. Paul Falcon in [place] , however office is closed for the weekend. At this time he has been declared incapacitated for decision-making by psychiatry. His son wishes to continue aggressive care. It is uncertain if the patient will ever regain capacity. Workup continues, neurology following. . Code Status: Full Code Plan: PLAN: Legal decision maker: Patient is not capacitated for decision-making per psychiatry. It is uncertain whether he will regain capacity. He has 1 son, Evens Conte who would be his proxy decision-maker per [place] statutes. Goals: Aggressive at this time. CODE STATUS: FULL CODE SYMPTOMS: * Confusion: Per family, patient has a baseline paranoia and at home has visitors enter through the garage door for fear of being robbed through the front door. They state that in the community, outside his home, he appears more normal and interactive, but at his home he watches his neighbors activities and over the last 6 months has shown evidence of confusion and memory loss, forgetting to pay his bills, poor attendance to personal hygiene, accusing family members of stealing his license plate. No prior psychiatric illnesses known or diagnosed mental health issues. Psychiatry has evaluated, found him not to be capacitated, but not admissible to inpatient psychiatry and increasing Seroquel. Ferro act has been lifted. Lumbar puncture cultures negative. Urinalysis negative, toxicology negative, no significant metabolic derangements noted. Neurology opining dementia as all clinical studies have returned negative. * Weakness: Multifactorial to include bedbound status, restraints and poor nutrition, refusing to eat. He continues to receive physical therapy services but his cognition is limiting his progress. He frequently declines to cooperate with physical therapy. Psychiatry recommending an increase in Seroquel to 3 times daily. Family would like him transferred to [place] where family lives. Once his son returns calls to outpatient case manager or myself with the information, the transfer center will be requested to initiate that request. Palliative care will continue to follow the patient during hospital course as condition evolves, to assist patient/decision-maker with understanding of their medical conditions, weighing benefits/burdens of treatment options, for clarification of goals of treatment. Additionally will assist with any symptoms of palliative concern. . Attestation Attestation: To help prompt me to consider important information that might be impacting today's encounter and assessment, information from prior notes written by myself or my colleagues may have been "brought forward" into today's note. My signature on this note, however, is an attestation that I personally performed the exam, history, and/or decision-making noted today, and, unless otherwise indicated, the interactions with patient, family, and staff as well as the review of records all occurred today. I also attest that the listed assessment and stated plan reflect my best clinical judgment today based on the combination of historical information, prior notes, and today's exam/ interactions. When time spent is documented, it refers only to time spent today by the signer, or if indicated, combined time spent today by collaborating physician/nurse practitioner. .
[2018-03-29] MEDS: Heparin - SQ 10,000 UNITS/ML Vial SQ SCH ×2 (08:34→22:01)
[2018-03-29] MEDS: Lisinopril 20 MG Tablet PO SCH (08:35)
[2018-03-29] MEDS: hydroCHLOROthiazide 25 MG Tablet PO SCH (08:35)
[2018-03-29] MEDS: QUEtiapine 25 MG Tablet PO SCH ×3 (09:00→22:05)
--- NOTE | 2018-03-29 10:49 | P.PNIM ---
Subjective Interval history: awake today but still confused. called patients pmd office awaiting call back left 2 messages on 03/28 for son regarding possible transfer Physical Exam Vital signs: Last Vital Signs Temp 97.2 F L 03/29/18 08:00 Pulse 50 L 03/29/18 08:00 Resp 13 03/29/18 08:00 BP 116/63 03/29/18 08:00 Pulse Ox 100 03/29/18 08:00 Intake & Output 03/27/18 03/28/18 03/29/18 03/30/18 06:59 06:59 06:59 06:59 Intake Total 540 / 540 600 / 600 460 / 460 Balance 540 / 540 600 / 600 460 / 460 Weight 75.1 kg 74.8 kg 75.2 kg gen: nad heent: eomi cvs:s1/s2 resp: cta bilaterally gi: soft, non tender, non distended ext: no edema neuro: unable to fully access./ Results Labs CBC & Chem 7: 03/18/18 08:31 03/18/18 08:31 Procedures Procedures: 03/17 lumbar puncture with radiology Assessment and Plan (1) Dementia: Code(s): F03.90 - Unspecified dementia without behavioral disturbance Status: Acute Plan Patient is a 68-year-old male with history of hypertension presenting with altered mental status of unclear etiology Neurology:acute encephalopathy/altered mental status Unclear etiology at this time per patient's altered mental status. Head MRI grossly unremarkable with no definitive acute intracranial pathology. Head CT with no acute intracranial finding. Chest CTA negative for evidence of acute pulmonary embolism. Lumbar puncture has not revealed any etiology to this point. -Labs mostly unremarkable, ammonia wnl, no CO2 retention, BG wnl, UDS negative -No obvious signs of infection, UA, urine culture, and CXR negative -Blood cultures with no growth to date -EEG reviewed and unremarkable -off antibiotics. Acyclovir has been discontinued per neurology, HSV PCR negative; during hospitalization was evaluated by ID. -Neurology consulted, appreciate assistance. Currently signed off. Dr. Caor has initiated Namenda- Seroquel 25 mg twice daily. -Psychiatry Dr. Julio lifted Ferro act and deemed patient lacked capacity for decision-making, -Appreciate palliative care assisting with designating sign as a healthcare proxy and establishing goals of care. -soft restraints as needed, Haldol prn agitation RAFA screen negative, rheumatoid arthritis negative -Neurology recommendations appreciated via EMR and at this time do not recommend inpatient psychiatric treatment Follow-up ceruloplasmin level and copper level - PENDING Accelerated Hypertension: consider hypertensive encephalopathy possibly contributing to above? -Continue on toprol XL 50mg qd, norvasc 10mg,Hydralazine and lisinopril 40 mg p.o. daily, HCTZ -Monitor BP, adjust antihypertensives as needed DVT Prophylaxis: Heparin subcu CODE STATUS: Full code Disposition: Family is interested in transferring patient. called son and left message for contact, will call again. Called PMD Dr. Falcon office- awaiting callback _ (1) Dementia Qualifiers: Dementia type: Alzheimer's disease onset: Dementia behavioral disturbance :
[2018-03-30] MEDS: Haloperidol Inj 5 MG/ML Ampul IM PRN (03:45)
[2018-03-30] MEDS: hydroCHLOROthiazide 25 MG Tablet PO SCH (08:48)
[2018-03-30] MEDS: Heparin - SQ 10,000 UNITS/ML Vial SQ SCH ×2 (08:48→21:33)
[2018-03-30] MEDS: Lisinopril 20 MG Tablet PO SCH (08:48)
[2018-03-30] MEDS: QUEtiapine 25 MG Tablet PO SCH ×2 (09:15→21:33)
--- NOTE | 2018-03-30 12:56 | P.PNIM ---
Subjective Interval history: . Patient appears to be lethargic but does answer questions when prompted. Physical Exam Vital signs: Last Vital Signs Temp 97.7 F 03/30/18 08:00 Pulse 78 03/30/18 08:00 Resp 18 03/30/18 08:00 BP 117/73 03/30/18 08:00 Pulse Ox 98 03/30/18 08:00 Intake & Output 03/28/18 03/29/18 03/30/18 03/31/18 06:59 06:59 06:59 06:59 Intake Total 600 / 600 460 / 460 480 / 480 Output Total 400 / 400 Balance 600 / 600 460 / 460 80 / 80 Weight 74.8 kg 75.2 kg 76.2 kg General: No acute distress Cardiovascular: S1/S2 Respiratory: Clear to auscultation Gastroenterology soft, nontender Extremity: No lower extremity edema Neurology: Unable to fully assess at this time. Results Labs CBC & Chem 7: 03/18/18 08:31 03/18/18 08:31 Procedures Procedures: 03/17 lumbar puncture with radiology Assessment and Plan (1) Dementia: Code(s): F03.90 - Unspecified dementia without behavioral disturbance Status: Acute Plan Patient is a 68-year-old male with history of hypertension presenting with altered mental status of unclear etiology Neurology:acute encephalopathy/altered mental status Unclear etiology at this time per patient's altered mental status. Head MRI grossly unremarkable with no definitive acute intracranial pathology. Head CT with no acute intracranial finding. Chest CTA negative for evidence of acute pulmonary embolism. Lumbar puncture has not revealed any etiology to this point. -Labs mostly unremarkable, ammonia wnl, no CO2 retention, BG wnl, UDS negative -No obvious signs of infection, UA, urine culture, and CXR negative -Blood cultures with no growth to date -EEG reviewed and unremarkable -off antibiotics. Acyclovir has been discontinued per neurology, HSV PCR negative; during hospitalization was evaluated by ID. -Neurology consulted, appreciate assistance. Currently signed off. Dr. Caro has initiated Namenda -Psychiatry Dr. Julio lifted Ferro act and deemed patient lacked capacity for decision-making, -Appreciate palliative care assisting with designating sign as a healthcare proxy and establishing goals of care. -soft restraints as needed, Haldol prn agitation RAFA screen negative, rheumatoid arthritis negative -Psychiatry recommendations appreciated via EMR and at this time do not recommend inpatient psychiatric treatment ceruloplasmin level and copper level - normal We will reduce Seroquel from 3 times a day to only at bedtime (03/30) Accelerated Hypertension: consider hypertensive encephalopathy possibly contributing to above? -Continue on toprol XL 50mg qd, norvasc 10mg,Hydralazine and lisinopril 40 mg p.o. daily, HCTZ -Monitor BP, adjust antihypertensives as needed DVT Prophylaxis: Heparin subcu CODE STATUS: Full code Disposition: Family is interested in transferring patient. Case was reviewed with facility considering transfer but patient was not deemed to be a candidate for transfer. Case management aware. _ (1) Dementia Qualifiers: Dementia type: Alzheimer's disease onset: Dementia behavioral disturbance :
[2018-03-31] MEDS: hydroCHLOROthiazide 25 MG Tablet PO SCH (08:44)
[2018-03-31] MEDS: Lisinopril 20 MG Tablet PO SCH (08:44)
[2018-03-31] MEDS: Heparin - SQ 10,000 UNITS/ML Vial SQ SCH ×2 (08:44→20:40)
--- NOTE | 2018-03-31 15:04 | P.PNIM ---
Subjective Interval history: The patient was resting in bed. He appeared confused. He was disoriented. He was watching TV. He was trying to climb out of bed. Physical Exam Vital signs: Last Vital Signs Temp 97.6 F 03/31/18 12:00 Pulse 91 H 03/31/18 12:00 Resp 20 03/31/18 12:00 BP 113/63 03/31/18 12:00 Pulse Ox 99 03/31/18 12:00 Intake & Output 03/29/18 03/30/18 03/31/18 04/01/18 06:59 06:59 06:59 06:59 Intake Total 460 / 460 480 / 480 600 / 600 Output Total 400 / 400 Balance 460 / 460 80 / 80 600 / 600 Weight 75.2 kg 76.2 kg 75.7 kg Narrative: General: Agitated. HEENT: NC, AT. Cardiovascular: S1/S2, tachycardic. Respiratory: Clear to auscultation. Gastroenterology soft, nontender. Extremities: No lower extremity edema. Neurology: Disoriented. Moving all extremities. Awake and alert. Results Labs CBC & Chem 7: 03/18/18 08:31 03/18/18 08:31 Labs: Microbiology 03/16/18 15:53 Cerebral Spinal Fluid - Lumbar Puncture Acid Fast Bacilli Smear - Final No acid fast bacilli seen 03/16/18 15:53 Cerebral Spinal Fluid - Lumbar Puncture Mycobacterial Culture - Preliminary No growth in 2 weeks Procedures Procedures: 03/17 lumbar puncture with radiology Assessment and Plan (1) Dementia: Code(s): F03.90 - Unspecified dementia without behavioral disturbance Status: Acute Plan Patient is a 68-year-old male with history of hypertension presenting with altered mental status of unclear etiology Neurology:acute encephalopathy/altered mental status Unclear etiology at this time per patient's altered mental status. Head MRI grossly unremarkable with no definitive acute intracranial pathology. Head CT with no acute intracranial finding. Chest CTA negative for evidence of acute pulmonary embolism. Lumbar puncture has not revealed any etiology to this point. -Labs mostly unremarkable, ammonia wnl, no CO2 retention, BG wnl, UDS negative -No obvious signs of infection, UA, urine culture, and CXR negative -Blood cultures with no growth to date -EEG reviewed and unremarkable -off antibiotics. Acyclovir has been discontinued per neurology, HSV PCR negative; during hospitalization was evaluated by ID. -Neurology consulted, appreciate assistance. Currently signed off. Dr. Caro has initiated Namenda. -Psychiatry Dr. Julio lifted Ferro act and deemed patient lacked capacity for decision-making. -Appreciate palliative care assisting with designating healthcare proxy and establishing goals of care. -soft restraints as needed, Haldol prn agitation. RAFA screen negative, rheumatoid arthritis negative -Psychiatry recommendations appreciated, at this time do not recommend inpatient psychiatric treatment ceruloplasmin level and copper level - normal We will reduce Seroquel from 3 times a day to only at bedtime (03/30) -check B12 level. Accelerated Hypertension: consider hypertensive encephalopathy possibly contributing to above? -Continue on toprol XL 50mg qd, norvasc 10mg,Hydralazine and lisinopril 40 mg p.o. daily, HCTZ -Monitor BP, adjust antihypertensives as needed Tachycardia Exacerbated by agitation. -continue telemetry. -check TSH. PPx: Heparin _ (1) Dementia Qualifiers: Dementia type: Alzheimer's disease onset: Dementia behavioral disturbance :
[2018-03-31 17:06] LABS: Thyroid Stimulating Hormone 1.25 uIU/mL (0.358-3.740)
[2018-03-31] MEDS: QUEtiapine 25 MG Tablet PO SCH (20:40)
[2018-04-01] MEDS: hydroCHLOROthiazide 25 MG Tablet PO SCH (09:23)
[2018-04-01] MEDS: Heparin - SQ 10,000 UNITS/ML Vial SQ SCH ×2 (09:24→22:27)
[2018-04-01] MEDS: Lisinopril 20 MG Tablet PO SCH (09:25)
[2018-04-01 09:33] LABS: Hematocrit 41.2 % (39.0-51.0); Hemoglobin 14.1 gm/dL (13.0-17.0); Mean Corpuscular HGB Conc 34.3 % (32.0-36.0); Mean Corpuscular Hemoglobin 31.7 pg (27.0-34.0); Mean Corpuscular Volume 92.5 fL (80.0-100.0); Mean Platelet Volume 9.9 fL (7.0-11.0); Platelet Count 198 th/mm3 (150-450); Red Blood Count 4.46 mil/mm3 (4.50-5.90); Red Cell Distribution Width 14.6 % (11.6-17.2); White Blood Count 5.4 th/mm3 (4.0-11.0)
[2018-04-01 10:05] LABS: Calcium 8.9 mg/dL (8.5-10.1); Potassium 3.2 meq/L (3.5-5.1)
[2018-04-01] MEDS ORDERED: Sodium Chloride 0.45 % Inj 1,000 ML IV.CONT SCH (11:37)
--- NOTE | 2018-04-01 11:50 | P.PNIM ---
Subjective Interval history: The patient was slightly agitated in bed but more calm than yesterday. Discussed with his son over the phone who was interested in pursuing rehab placement in [place]. He was also interested in his father discontinuing the Seroquel. Discussed with nursing and case management. Physical Exam Vital signs: Last Vital Signs Temp 97.9 F 04/01/18 08:00 Pulse 52 L 04/01/18 08:00 Resp 16 04/01/18 08:00 BP 103/60 04/01/18 08:00 Pulse Ox 100 04/01/18 08:00 Intake & Output 03/30/18 03/31/18 04/01/18 04/02/18 06:59 06:59 06:59 06:59 Intake Total 480 / 480 600 / 600 480 / 480 Output Total 400 / 400 Balance 80 / 80 600 / 600 480 / 480 Weight 76.2 kg 75.7 kg 75 kg Narrative: General: Slightly agitated. HEENT: NC, AT. Cardiovascular: S1/S2, rrr. Respiratory: Clear to auscultation. Gastroenterology soft, nontender. Extremities: No lower extremity edema. Neurology: Disoriented. Moving all extremities. Awake and alert. Results Labs CBC & Chem 7: 04/01/18 08:54 04/01/18 08:54 Procedures Procedures: 03/17 lumbar puncture with radiology Assessment and Plan (1) Dementia: Code(s): F03.90 - Unspecified dementia without behavioral disturbance Status: Acute Plan Patient is a 68-year-old male with history of hypertension presenting with altered mental status of unclear etiology Neurology:acute encephalopathy/altered mental status Unclear etiology at this time per patient's altered mental status. Head MRI grossly unremarkable with no definitive acute intracranial pathology. Head CT with no acute intracranial finding. Chest CTA negative for evidence of acute pulmonary embolism. Lumbar puncture has not revealed any etiology to this point. -Labs mostly unremarkable, ammonia wnl, no CO2 retention, BG wnl, UDS negative -No obvious signs of infection, UA, urine culture, and CXR negative -Blood cultures with no growth to date -EEG reviewed and unremarkable -off antibiotics. Acyclovir has been discontinued per neurology, HSV PCR negative; during hospitalization was evaluated by ID. -Neurology consulted, appreciate assistance. Currently signed off. Dr. Caro has initiated Namenda. -Psychiatry Dr. Julio lifted Ferro act and deemed patient lacked capacity for decision-making. -Appreciate palliative care assisting with designating healthcare proxy and establishing goals of care. -soft restraints as needed, Haldol prn agitation. RAFA screen negative, rheumatoid arthritis negative -Psychiatry recommendations appreciated, at this time do not recommend inpatient psychiatric treatment. ceruloplasmin level and copper level - normal We will discontinue Seroquel 04/01 per son's request. -continue Namenda. Accelerated Hypertension: consider hypertensive encephalopathy possibly contributing to above? -Continue on toprol XL 50mg qd, norvasc 10mg,Hydralazine and lisinopril 40 mg p.o. daily, HCTZ -Monitor BP, adjust antihypertensives as needed Acute renal failure Labs 04/01 demonstrate acute renal failure with hypokalemia. -d/c HCTZ and lisinopril. -1/2 NS with KCL at 125 ml/hr. -follow BMP and avoid nephrotoxins. -ADAT. PPx: Heparin Discharge Planning: Difficult placement. Will need SNF. Need resolution of renal failure, continue IVFs. Continue Namenda. Reconsult psych/neurology as needed. _ (1) Dementia Qualifiers: Dementia type: Alzheimer's disease onset: Dementia behavioral disturbance :
[2018-04-01] MEDS: KCL 20 mEq/NACL 0.45% Inj 1,000 ML IV.CONT SCH ×2 (12:23→23:01)
--- NOTE | 2018-04-01 15:38 | P.PNPAL ---
Palliative care received a call from patient's sister, Belen. She is inquiring about what she needs to do to get Mr. Conte out of the hospital. She is demanding to speak with Dr. Vega. Gently informed sister patient is now being followed by Dr. Felton. Also informed her, per review of Dr. Vega's notes, patient was declined for transfer to another facility. Attempted to explain process for transfer to another facility however was cut off by sister stating she has already been told this by everyone she has spoken to. Gently informed her patient is unable to be discharged until deemed medically stable by attending physician or accepted at another medical facility and family cannot sign out a patient AMA, only a capacitated patient can sign themselves out. Sister continued to be upset with answers provided and stated she "needs to talk to someone who knows what they are talking about since everyone is giving me the same answers". Sister states she knows what she needs to do to get him out of the hospital and phone call was ended. Palliative care will remain available as needed throughout hospitalization.
[2018-04-01 20:11] LABS: Calcium 8.4 mg/dL (8.5-10.1); Carbon Dioxide 24.4 meq/L (21.0-32.0); Potassium 3.4 meq/L (3.5-5.1)
[2018-04-01] MEDS: Haloperidol Inj 5 MG/ML Ampul IM PRN (23:25)
[2018-04-02 02:02] LABS: Calcium 8.9 mg/dL (8.5-10.1); Carbon Dioxide 24.3 meq/L (21.0-32.0); Potassium 3.2 meq/L (3.5-5.1)
[2018-04-02] MEDS: KCL 20 mEq/NACL 0.45% Inj 1,000 ML IV.CONT SCH ×4 (06:12→22:09)
[2018-04-02] MEDS: Heparin - SQ 10,000 UNITS/ML Vial SQ SCH ×2 (09:25→22:00)
[2018-04-02 10:55] LABS: Baso # (Auto) 0.1 th/mm3 (0.0-0.2); Baso % (Auto) 1.3 % (0.0-2.0); Eos # (Auto) 0.2 th/mm3 (0.0-0.4); Eos % (Auto) 2.6 % (0.0-4.0); Hematocrit 38.7 % (39.0-51.0); Hemoglobin 13.3 gm/dL (13.0-17.0); Lymph # (Auto) 1.6 th/mm3 (1.0-4.8); Lymph % (Auto) 24.1 % (9.0-44.0); Mean Corpuscular HGB Conc 34.3 % (32.0-36.0); Mean Corpuscular Hemoglobin 31.8 pg (27.0-34.0); Mean Corpuscular Volume 92.6 fL (80.0-100.0); Mean Platelet Volume 9.7 fL (7.0-11.0); Mono # (Auto) 0.5 th/mm3 (0.0-0.9); Mono % (Auto) 8.3 % (0.0-8.0); Neut # (Auto) 4.1 th/mm3 (1.8-7.7); Neut % (Auto) 63.7 % (16.0-70.0); Platelet Count 198 th/mm3 (150-450); Red Blood Count 4.18 mil/mm3 (4.50-5.90); Red Cell Distribution Width 14.2 % (11.6-17.2); White Blood Count 6.5 th/mm3 (4.0-11.0)
[2018-04-02 11:24] LABS: Calcium 8.7 mg/dL (8.5-10.1); Carbon Dioxide 25.4 meq/L (21.0-32.0); Magnesium 2.4 mg/dL (1.5-2.5); Phosphorus 3.2 mg/dL (2.5-4.9); Potassium 3.5 meq/L (3.5-5.1)
--- NOTE | 2018-04-02 19:14 | P.PNIM ---
Subjective Interval history: Patient remains confused, pleasant, appears comfortable and without pain. Etiology of his confusion is not clear yet. His family has been present according to staff, but is not here today. Physical Exam Vital signs: Last Vital Signs Temp 97.5 F L 04/02/18 16:00 Pulse 67 04/02/18 16:00 Resp 20 04/02/18 16:00 BP 165/72 H 04/02/18 16:00 Pulse Ox 100 04/02/18 16:00 Intake & Output 03/31/18 04/01/18 04/02/18 04/03/18 06:59 06:59 06:59 06:59 Intake Total 600 / 600 480 / 480 2520 / 2520 1360 / 1360 Balance 600 / 600 480 / 480 2520 / 2520 1360 / 1360 Weight 75.7 kg 75 kg 73.8 kg Narrative: GENERAL: Disoriented, no acute distress SKIN: Warm and dry. No rashes HEAD: Atruamtic, normocephalic. EYES: No scleral icterus. No injection or drainage. ENT: Moist mucous membranes, patent nares, no erythema of oropharynx. NECK: Supple, trachea midline. No JVD or lymphadenopathy. Normal thyroid. CARDIOVASCULAR: Regular rate and rhythm. No murmurs, gallops, or rubs. RESPIRATORY: Breath sounds clear equal bilaterally. No crackles or wheezes. No accessory muscle use. GASTROINTESTINAL: Abdomen soft, non-tender, nondistended, normal active bowel sounds MUSCULOSKELETAL: No cyanosis, or edema. NEURO: CN II-XII grossly intact, no focal deficits, no slurring of speech Results Labs CBC & Chem 7: 04/02/18 10:13 04/02/18 10:13 Procedures Procedures: 03/17 lumbar puncture with radiology Assessment and Plan (1) Dementia: Code(s): F03.90 - Unspecified dementia without behavioral disturbance Status: Acute Plan Patient is a 68-year-old male with history of hypertension presenting with altered mental status of unclear etiology Acute encephalopathy, altered mental status Etiology remains unclear MRI and CT of the head was unremarkable Chest CTA showed no pulmonary embolism Lumbar puncture showed no cause for his confusion Ammonia, CO2, blood glucose, urine drug screen all unremarkable Blood cultures remain negative EEG is normal, RAFA screen negative, rheumatoid arthritis screen negative, ceruloplasmin, and copper levels within normal limits Neurology has discontinued empiric coverage with acyclovir Appreciate neurology consult, neurology has signed off Ferro act was lifted by psychiatry, patient incapable of making decisions Appreciate psychiatry consult Appreciate palliative care Continue soft restraints as needed, Haldol as needed for agitation Continue Namenda Hypertension Continue Toprol, Norvasc, hydralazine Acute renal failure Slowly improving, creatinine 1.84 DVT Prophylaxis Heparin _ (1) Dementia Qualifiers: Dementia type: Alzheimer's disease onset: Dementia behavioral disturbance :
[2018-04-03] MEDS: KCL 20 mEq/NACL 0.45% Inj 1,000 ML IV.CONT SCH ×4 (05:52→22:19)
[2018-04-03] MEDS: Heparin - SQ 10,000 UNITS/ML Vial SQ SCH ×2 (09:59→20:27)
--- NOTE | 2018-04-03 14:52 | P.PNIM ---
Subjective Interval history: When I met Mr. Conte yesterday he was very disoriented, not able to get out of bed. Today he is working with physical therapy, sitting up on the side of the bed, making jokes, looking much better compared to yesterday. He still remains confused but is improving greatly. Physical Exam Vital signs: Last Vital Signs Temp 98.1 F 04/03/18 12:00 Pulse 98 H 04/03/18 12:00 Resp 20 04/03/18 12:00 BP 161/85 H 04/03/18 12:00 Pulse Ox 95 04/03/18 12:00 Intake & Output 04/01/18 04/02/18 04/03/18 04/04/18 06:59 06:59 06:59 06:59 Intake Total 480 / 480 2520 / 2520 2720 / 2720 Balance 480 / 480 2520 / 2520 2720 / 2720 Weight 75 kg 73.8 kg Narrative: GENERAL: Disoriented, but appropriately interactive and much improved , no acute distress SKIN: Warm and dry. No rashes HEAD: Atruamtic, normocephalic. EYES: No scleral icterus. No injection or drainage. ENT: Moist mucous membranes, patent nares, no erythema of oropharynx. NECK: Supple, trachea midline. No JVD or lymphadenopathy. Normal thyroid. CARDIOVASCULAR: Regular rate and rhythm. No murmurs, gallops, or rubs. RESPIRATORY: Breath sounds clear equal bilaterally. No crackles or wheezes. No accessory muscle use. GASTROINTESTINAL: Abdomen soft, non-tender, nondistended, normal active bowel sounds MUSCULOSKELETAL: No cyanosis, or edema. NEURO: CN II-XII grossly intact, no focal deficits, no slurring of speech Results Labs CBC & Chem 7: 04/02/18 10:13 04/02/18 10:13 Procedures Procedures: 03/17 lumbar puncture with radiology Assessment and Plan (1) Dementia: Code(s): F03.90 - Unspecified dementia without behavioral disturbance Status: Acute Plan Patient is a 68-year-old male with history of hypertension presenting with altered mental status of unclear etiology 04/03/18 = patient has had a remarkable improvement in his orientation and overall alertness today. He was able to walk with physical therapy, still remains confused but greatly improved compared to one day ago Acute encephalopathy, altered mental status Etiology remains unclear, but today patient improved despite no changes to therapy MRI and CT of the head was unremarkable Chest CTA showed no pulmonary embolism Lumbar puncture showed no cause for his confusion Ammonia, CO2, blood glucose, urine drug screen all unremarkable Blood cultures remain negative EEG is normal, RAFA screen negative, rheumatoid arthritis screen negative, ceruloplasmin, and copper levels within normal limits Neurology has discontinued empiric coverage with acyclovir Appreciate neurology consult, neurology has signed off Ferro act was lifted by psychiatry, patient incapable of making decisions Appreciate psychiatry consult Appreciate palliative care Continue soft restraints as needed Continue Namenda Hypertension Continue Toprol, Norvasc, hydralazine Acute renal failure Slowly improving, creatinine 1.84 DVT Prophylaxis Heparin Disposition Patient may be appropriate for discharge in the next 1-2 days if he continues to improve at this rate Rehab is recommended, however family is very involved in a day 1 and at home and he is walking and appropriate he can manage him at home. _ (1) Dementia Qualifiers: Dementia type: Alzheimer's disease onset: Dementia behavioral disturbance :
[2018-04-04] MEDS: KCL 20 mEq/NACL 0.45% Inj 1,000 ML IV.CONT SCH ×4 (06:26→20:28)
[2018-04-04] MEDS: Heparin - SQ 10,000 UNITS/ML Vial SQ SCH ×2 (09:44→20:30)
--- NOTE | 2018-04-04 10:40 | P.PN ---
Subjective Interval history: Follow up for encephalopathy. The patient is drowsy this morning, awakens to light touch, says he's doing "fine", but then does not answer any orientation questions, including his name. Does not verbalize any medical complaints. Physical Exam Vital signs: Vital Signs 04/03/18 12:00 04/03/18 16:00 04/03/18 19:50 Temperature 98.1 F 98.2 F Pulse Rate 98 H 71 77 Respiratory Rate 20 20 Blood Pressure 161/85 H 150/70 H Pulse Oximetry 95 95 04/03/18 20:00 04/03/18 23:47 04/04/18 00:00 Temperature 97.4 F L 97.5 F L Pulse Rate 65 65 78 Respiratory Rate 17 18 Blood Pressure 140/70 164/76 H Pulse Oximetry 98 98 04/04/18 04:00 04/04/18 08:00 Temperature 97.7 F 98.2 F Pulse Rate 76 69 Respiratory Rate 18 18 Blood Pressure 168/71 H 142/80 H Pulse Oximetry 99 98 Intake & Output 04/03/18 04/04/18 04/04/18 18:59 06:59 18:59 Intake Total 0 / 0 2119 / 2119 Balance 0 / 0 2119 / 2119 Weight 73.8 kg Intake: IV 1999 Potassium Chlor 20 mEq/NACL 0. 1999 45% Inj 1,000 ML @ 125 mls/hr IV.CONT .Q8H [facility] Rx#:[id number] Oral 0 / 0 120 / 120 Other: # Incontinent Voids 2 # Urine Diapers 3 Date of Last Bowel Movement 04/01/18 Narrative: GENERAL: Elderly male patient in NAD. Drowsy, disoriented today. SKIN: Warm and dry. No rash. HEENT: Normocephalic. Atraumatic. Pupils equal and round. Mucous membranes pink and moist. CARDIOVASCULAR: Regular rate and rhythm. No murmur appreciated. RESPIRATORY: No accessory muscle use. Clear to auscultation. Breath sounds equal bilaterally. GASTROINTESTINAL: Abdomen soft, non-tender, nondistended. Normoactive bowel sounds x4. MUSCULOSKELETAL: No obvious deformities. Extremities without clubbing, cyanosis , or edema. NEUROLOGICAL: Awake and alert. No obvious cranial nerve deficits. Moving all extremities spontaneously. Normal speech. PSYCHIATRIC: insight and judgment limited. Results - Labs CBC & Chem 7: 04/02/18 10:13 04/02/18 10:13 - Procedures 03/17 lumbar puncture with radiology Assessment and Plan - Assessment (1) Dementia Code(s): F03.90 - Unspecified dementia without behavioral disturbance Status: Acute - Plan 67-year-old male with history of hypertension presents with AMS via EVAC under Ferro act after being found by precinct police captain on the side of the road in a vehicle that was disabled due to running out of gas, per ER report. Reportedly patient drove his car here from [place]. Acute encephalopathy/altered mental status: Unclear etiology. -Head CT and brain MRI reviewed and unremarkable -Chest CTA negative for PE, no effusions, no congestive failure, no emphysema -CXR reviewed and unremarkable -Labs mostly unremarkable, ammonia wnl, no CO2 retention, BG wnl, UDS negative -No obvious signs of infection, UA, urine culture, and CXR negative -Blood cultures with NGTD -EEG reviewed and unremarkable -Lumbar puncture unremarkable without any etiology for confusion -S/p empiric IV Vanco/Ampicillin/Rocephin/Acyclovir per neurology, now discontinued -Neurology consulted, appreciate assistance, now signed off -Psychiatry consulted, discussed with Dr. Julio, Ferro Act lifted, however agrees patient severely lacks capacity -Palliative care consulted, appreciate assistance -soft restraints as needed -Needs rehab Accelerated Hypertension: -Continue on toprol XL 50mg qd, held lisinopril with JOHN -Hydralazine prn -Monitor BP, adjust antihypertensives as needed Hypokalemia: K 3.2, likely secondary to decreased oral intake -give po and IV KCl replacement -monitor electrolytes, replace as needed Acute Renal Failure: Cr 2.64 on 04/01, previously 1.22 on 03/18. Likely secondary to dehydration -continue IVF hydration -avoid nephrotoxins -monitor BMP, improving Cr 1.84 -repeat BMP in am DVT Prophylaxis: teds/SCDs; Heparin sq Discharge Planning: Needs placement. Case management to assist with discharge planning.
--- NOTE | 2018-04-04 15:53 | P.PNPAL ---
Received call from patient's son Evens, . Attempted to call back, unable to reach and unable to leave message. Also attempted phone number listed in EMR for son, , unable to reach, left VM with palliative care contact information.
[2018-04-05] MEDS: KCL 20 mEq/NACL 0.45% Inj 1,000 ML IV.CONT SCH ×4 (01:29→13:34)
[2018-04-05] MEDS: Heparin - SQ 10,000 UNITS/ML Vial SQ SCH ×2 (08:40→21:07)
[2018-04-05 09:04] LABS: Calcium 8.9 mg/dL (8.5-10.1); Carbon Dioxide 21.3 meq/L (21.0-32.0)
--- NOTE | 2018-04-05 09:30 | P.PN ---
Subjective Interval history: Follow up for encephalopathy. The patient is awake, alert, sitting upright in bed this morning, oriented to self only. Denies any specific medical complaints. He is making nonsensical statements, including stating "no I am not going to babysit anyone". Physical Exam Vital signs: Vital Signs 04/04/18 12:00 04/04/18 16:00 04/04/18 19:51 Temperature 97.9 F 98.4 F 97.6 F Pulse Rate 62 70 75 Respiratory Rate 18 18 16 Blood Pressure 142/83 H 169/92 H 173/72 H Pulse Oximetry 99 99 95 04/05/18 00:00 04/05/18 00:36 04/05/18 04:00 Temperature 97.8 F 98.5 F Pulse Rate 83 95 H 81 Respiratory Rate 20 20 Blood Pressure 166/77 H 179/70 H Pulse Oximetry 98 100 04/05/18 04:02 04/05/18 08:00 Temperature 98.3 F Pulse Rate 60 62 Respiratory Rate 18 Blood Pressure 160/77 H Pulse Oximetry 99 Intake & Output 04/04/18 04/05/18 04/05/18 18:59 06:59 18:59 Intake Total 1480 / 1480 700 / 700 1000 / 1000 Balance 1480 / 1480 700 / 700 1000 / 1000 Weight 77.3 kg 77.3 kg Intake: IV 1000 / 1000 700 / 700 1000 / 1000 Potassium Chlor 20 mEq/NACL 0. 1000 / 1000 700 / 700 1000 / 1000 45% Inj 1,000 ML @ 125 mls/hr IV.CONT .Q8H [facility] Rx#:[id number] Oral 480 / 480 0 / 0 Other: # Voids 2 # Urine Diapers 4 # Bowel Movements 0 Narrative: GENERAL: Elderly male patient in NAD. Disoriented. SKIN: Warm and dry. No rash. HEENT: Normocephalic. Atraumatic. Pupils equal and round. Mucous membranes pink and moist. CARDIOVASCULAR: Regular rate and rhythm. No murmur appreciated. RESPIRATORY: No accessory muscle use. Clear to auscultation. Breath sounds equal bilaterally. GASTROINTESTINAL: Abdomen soft, non-tender, nondistended. Normoactive bowel sounds x4. MUSCULOSKELETAL: No obvious deformities. Extremities without clubbing, cyanosis , or edema. NEUROLOGICAL: Awake and alert. No obvious cranial nerve deficits. Moving all extremities spontaneously. Normal speech. PSYCHIATRIC: insight and judgment limited. Results - Labs CBC & Chem 7: 04/02/18 10:13 04/05/18 07:10 Laboratory Results - last 24 hr 04/03/18 04/05/18 11:35 07:10 Sodium 143 Potassium 4.0 Chloride 113 H Carbon Dioxide 21.3 Anion Gap 9 BUN 19 H Creatinine 1.32 H Estimated GFR 65 L Random Glucose 85 Calcium 8.9 Lyme Disease DNA (PCR) Not detected - Procedures 03/17 lumbar puncture with radiology Assessment and Plan - Assessment (1) Dementia Code(s): F03.90 - Unspecified dementia without behavioral disturbance Status: Acute - Plan 67-year-old male with history of hypertension presents with AMS via EVAC under Ferro act after being found by military police officer on the side of the road in a vehicle that was disabled due to running out of gas, per ER report. Reportedly patient drove his car here from [place]. Acute encephalopathy/altered mental status: Unclear etiology. -Head CT and brain MRI reviewed and unremarkable -Chest CTA negative for PE, no effusions, no congestive failure, no emphysema -CXR reviewed and unremarkable -Labs mostly unremarkable, ammonia wnl, no CO2 retention, BG wnl, UDS negative -No obvious signs of infection, UA, urine culture, and CXR negative -Blood cultures with NGTD -EEG reviewed and unremarkable -Lumbar puncture unremarkable without any etiology for confusion -S/p empiric IV Vanco/Ampicillin/Rocephin/Acyclovir per neurology, now discontinued -Neurology consulted, appreciate assistance, now signed off -Psychiatry consulted, discussed with Dr. Julio, Ferro Act lifted, however agrees patient severely lacks capacity -Palliative care consulted, appreciate assistance -soft restraints as needed -Needs rehab Accelerated Hypertension: -Continue on toprol XL 50mg qd, held lisinopril with JOHN -Hydralazine prn -Monitor BP, adjust antihypertensives as needed Hypokalemia: K 3.2, likely secondary to decreased oral intake -give po and IV KCl replacement -monitor electrolytes, replace as needed Acute Renal Failure: Cr 2.64 on 04/01, previously 1.22 on 03/18. Likely secondary to dehydration -continue IVF hydration -avoid nephrotoxins -repeat BMP shows continued improvement, creatinine 1.32 today -decreased fluids from 125cc/hr to 80cc/hr today -repeat BMP in 2 days DVT Prophylaxis: teds/SCDs; Heparin sq Discharge Planning: Needs placement. Case management to assist with discharge planning.
--- NOTE | 2018-04-05 11:20 | P.NPEVAL ---
Patient History - Record/History Review Reason for Referral: The patient is a 68 year old presumed right handed man who presented to [facility] on 03/13/2018 after being found unresponsive in his vehicle. Apparently , he was driving from [place] and had mental status abnormalities. Labs and neuroimaging has been clear. I was asked to see the patient concerning his rehabilitation status on balance with his neurobehavioral issues. He is referred for baseline neurobehavioral status examination to assess cognitive, behavioral and emotional aspects of his clinical presentation and to provide treatment recommendations. [facility] - History History Provided By: Patient - Medical History Medical History: Medical History (Last Reviewed 04/01/18 @ 09:03 by Sue Serrato) Medical history unknown Surgical history unknown Hypertension - Tobacco History Second Hand Smoke Exposure: No Smoking Status: Cognitive impairment - Alcohol History How Often Do You Have a Drink Containing Alcohol: Unable to Obtain - Immunization History Tetanus Immunization: Unsure Medications Active Medications Acetaminophen (Tylenol) 650 mg PO Q4H PRN PRN Reason: Temp > 100.4 Last Admin: 03/17/18 16:35 Dose: 650 mg Al Hydroxide/Mg Hydroxide (Milk Of Magnesia Liq) 30 ml PO Q12H PRN PRN Reason: Mild Constipation Bisacodyl (Dulcolax Supp) 10 mg RECTAL DAILY PRN PRN Reason: SEVERE CONSITIPATION Haloperidol Lactate (Haldol Inj) 2 mg IM Q6H PRN PRN Reason: AGITATION Last Admin: 04/01/18 23:25 Dose: 2 mg Heparin Sodium (Porcine) (Heparin Inj) 5,000 units SQ Q12HR [facility] Last Admin: 04/05/18 08:40 Dose: 5,000 units Hydralazine HCl (Apresoline Inj) 10 mg IV.PUSH Q4H PRN PRN Reason: SBP> OR = 180, DBP> OR = 100 Potassium Chloride/Sodium Chloride (Potassium Chlor 20 Meq/Nacl 0.45% Inj) 1, 000 mls @ 80 mls/hr IV.CONT .[id number] [facility] Last Admin: 04/05/18 09:13 Dose: 125 mls/hr Lactulose (Lactulose Liq) 30 ml PO DAILY PRN PRN Reason: SEVERE CONSITIPATION Memantine (Namenda) 10 mg PO BID [facility] Last Admin: 04/05/18 08:40 Dose: 10 mg Metoprolol Succinate (Toprol Xl) 50 mg PO DAILY [facility] Last Admin: 04/05/18 08:40 Dose: 50 mg Sennosides (Senokot) 17.2 mg PO Q12H PRN PRN Reason: Moderate Constipation Sodium Chloride (Ns Flush) 2 ml IV.FLUSH BID [facility] Last Admin: 04/05/18 10:14 Dose: Not Given Sodium Chloride (Ns Flush) 2 ml IV.FLUSH PRN PRN PRN Reason: FLUSH AFTER USING IV ACCESS Mental Status Assessment - Mental Status Orientation: oriented to: Self, disoriented to: Place, Time, Situation Mental Status: Impaired: Thought processing, Language/interactions, Attention, Learning/memory, Problem-solving Adjustment/Coping Assessment - Adjustment/Coping Adjustment/Coping: Severe: Awareness, Insight - Observation In terms of emotional functioning, the patient demonstrated significant challenges. This patient demonstrated frequent signs of agitation, impulsivity and disinhibition. There was no remarkable evidence of a formal thought disorder or psychosis as is seen in major psychiatric disorders. There was no evidence of depression or anxiety. Thought content appeared free from suicidal , homicidal or paranoid ideation, and thought processes were blunted, bradyphrenic and tangential. The patients mood was apathetic, and his affect was labile. The patient appears to possess no insight and awareness into their situation and within the limits of this brief evaluation, poor judgment. - Goals/Team Members LTG Status: Deferred STG Status: Deferred Team Members: Neuropsychologist Behavior - Behavior Agitation: Moderate - Observation Behaviorally, the patient demonstrated frequent signs of agitation, impulsivity or disinhibition. There was no remarkable evidence of a formal thought disorder or psychosis. 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 Maximizing Acute Care Outcome: Apparently, the family of this patient reports that he has always been this way and they wish to take him home. In my opinion, there is not a chance that this patient was this neurocognitively and neurobehaviorally impaired, and able to drive a car from [place] to where he was found. The family is insisting to take him home and for him not to participate in rehabilitation efforts. If that is their decision, so be it. It is recommended that the patient be monitored for emergent behavioral impulsivity as the medical condition evolves. This patients neuropathological challenges may limit rehabilitation potential going forward, and these challenges will require specialized therapeutic skills to maximize outcome. At this point in the recovery process , the patient does not have cognitive capacity as the patient is unable to understand a situation and its likely consequences, nor is the patient able to manipulate information rationally. Cognitive capacity will be assessed throughout the recovery process. - Discharge Planning Anticipated Problems: Ongoing areas of concern will include behavioral impulsivity, lack of insight and judgment, which is not necessarily expected to improve with time and treatment. Presently, the patient is not following greater than one-step commands. This patient is not considered safe to discharge home with supervision. Again, if the family agrees to take him home and provide 24 hour/ 7 day supervision, that is their decision. Treatment Plan: This clinician will continue to follow with you throughout the course of this patients acute care treatment, and I will be available to meet with the patient s family/support system to facilitate their understanding and the ongoing care of their family member. The goals of neuropsychological intervention shall be both educational and supportive to the family/support system as is deemed clinically appropriate. Thank you for the opportunity to assist in this patients care. Casa Smalls, Ph.D., ABPP Board Certified in Clinical Neuropsychology [place] Board of Professional Psychology [place] Licensed Psychologist #[id number]
--- NOTE | 2018-04-05 14:55 | P.PNPAL ---
Palliative care received call from patient's son, Evens. Son is inquiring to speak with Dr. Caro for update. Informed him neurology signed off and has not been following patient since 03/27. Informed him of neuropsychogist evaluation today. Son requests to speak with Dr. Smalls for update. Updated patient's RN. Son also inquires about discharge planning and facilities assessing his father. Updated him on last case management note. Encouraged him to speak with case management for updates. Also encouraged him to speak with father's insurance provider for additional facilities that may be able to accept in the area desired. Family is still wanting patient placed in the [place] area. Questions answered to the best of my ability. Palliative care will continue to be available as needed throughout hospitalization.
[2018-04-06] MEDS: KCL 20 mEq/NACL 0.45% Inj 1,000 ML IV.CONT SCH ×3 (06:36→13:24)
--- NOTE | 2018-04-06 08:13 | P.PN ---
Subjective Interval history: Follow up for encephalopathy. The patient was moved to a room closer to the nurses station overnight secondary to agitation. The patient is drowsy this morning, awakens to voice, then falls back asleep. No other concerns reported by RN. Physical Exam Vital signs: Vital Signs 04/05/18 12:00 04/05/18 16:00 04/05/18 20:00 Temperature 98.2 F 98.1 F 97.9 F Pulse Rate 56 L 64 56 L Respiratory Rate 18 18 18 Blood Pressure 151/76 H 150/83 H 157/84 H Pulse Oximetry 97 99 100 04/06/18 00:00 04/06/18 04:00 Temperature 97.9 F 97.3 F L Pulse Rate 100 H 64 Respiratory Rate 18 16 Blood Pressure 169/68 H 167/89 H Pulse Oximetry 99 99 Intake & Output 04/05/18 04/06/18 04/06/18 18:59 06:59 18:59 Intake Total 1240 / 1240 1720 / 1720 Balance 1240 / 1240 1720 / 1720 Weight 77.3 kg 78.5 kg Intake: IV 1000 / 1000 1000 / 1000 Potassium Chlor 20 mEq/NACL 0. 1000 / 1000 1000 / 1000 45% Inj 1,000 ML @ 80 mls/hr IV .CONT .[id number] [facility] Rx#:[id number] Oral 240 / 240 0 / 0 Other 720 / 720 Other: # Urine Diapers 2 4 # Bowel Movements 1 0 Narrative: GENERAL: Elderly male patient in [facility]. Disoriented. SKIN: Warm and dry. No rash. HEENT: Normocephalic. Atraumatic. Pupils equal and round. Mucous membranes pink and moist. CARDIOVASCULAR: Regular rate and rhythm. No murmur appreciated. RESPIRATORY: No accessory muscle use. Clear to auscultation. Breath sounds equal bilaterally. GASTROINTESTINAL: Abdomen soft, non-tender, nondistended. Normoactive bowel sounds x4. MUSCULOSKELETAL: No obvious deformities. Extremities without clubbing, cyanosis , or edema. NEUROLOGICAL: Awake and alert. No obvious cranial nerve deficits. Moving all extremities spontaneously. Normal speech. PSYCHIATRIC: insight and judgment limited. Results - Labs CBC & Chem 7: 04/02/18 10:13 04/05/18 07:10 Laboratory Results - last 24 hr 04/05/18 07:10 Sodium 143 Potassium 4.0 Chloride 113 H Carbon Dioxide 21.3 Anion Gap 9 BUN 19 H Creatinine 1.32 H Estimated GFR 65 L Random Glucose 85 Calcium 8.9 - Procedures 03/17 lumbar puncture with radiology Assessment and Plan - Assessment (1) Dementia Code(s): F03.90 - Unspecified dementia without behavioral disturbance Status: Acute - Plan 67-year-old male with history of hypertension presents with AMS via EVAC under [employer] act after being found by police captain senior on the side of the road in a vehicle that was disabled due to running out of gas, per ER report. Reportedly patient drove his car here from [place]. Acute encephalopathy/altered mental status: Unclear etiology. -Head CT and brain MRI reviewed and unremarkable -Chest CTA negative for PE, no effusions, no congestive failure, no emphysema -CXR reviewed and unremarkable -Labs mostly unremarkable, ammonia wnl, no CO2 retention, BG wnl, UDS negative -No obvious signs of infection, UA, urine culture, and CXR negative -Blood cultures with NGTD -EEG reviewed and unremarkable -Lumbar puncture unremarkable without any etiology for confusion -S/p empiric IV Vanco/Ampicillin/Rocephin/Acyclovir per neurology, now discontinued -Neurology consulted, appreciate assistance, now signed off -Psychiatry consulted, discussed with Dr. Julio, Ferro Act lifted, however agrees patient severely lacks capacity -Palliative care consulted, appreciate assistance -soft restraints as needed -Needs rehab Accelerated Hypertension: -Continue on toprol XL 50mg qd, held lisinopril with JOHN -Hydralazine prn -Monitor BP, adjust antihypertensives as needed Hypokalemia: K 3.2, likely secondary to decreased oral intake -give po and IV KCl replacement -monitor electrolytes, replace as needed Acute Renal Failure: Cr 2.64 on 04/01, previously 1.22 on 03/18. Likely secondary to dehydration -continue IVF hydration -avoid nephrotoxins -repeat BMP shows continued improvement, creatinine 1.32 today -decreased fluids from 125cc/hr to 80cc/hr today -repeat BMP in 2 days DVT Prophylaxis: teds/SCDs; Heparin sq Discharge Planning: Needs placement. Case management to assist with discharge planning. Unsafe discharge home with family, requires 24hour supervision.
[2018-04-06] MEDS: Heparin - SQ 10,000 UNITS/ML Vial SQ SCH ×2 (09:42→22:17)
[2018-04-07] MEDS: hydrALAZINE HCl Inj 20 MG/ML Vial IV.PUSH PRN (00:15)
[2018-04-07] MEDS: Haloperidol Inj 5 MG/ML Ampul IM PRN ×2 (00:17→21:15)
[2018-04-07] MEDS: KCL 20 mEq/NACL 0.45% Inj 1,000 ML IV.CONT SCH ×2 (00:25→13:24)
[2018-04-07 07:14] LABS: Calcium 8.8 mg/dL (8.5-10.1); Carbon Dioxide 19.7 meq/L (21.0-32.0); Potassium 3.9 meq/L (3.5-5.1)
--- NOTE | 2018-04-07 08:01 | P.PN ---
Subjective Interval history: Follow-up for encephalopathy, JOHN. The patient is drowsy this morning. He awakens to voice, but does not answer any questions for me, only mumbles. He is following simple commands. No other concerns reported by RN. Physical Exam Vital signs: Vital Signs 04/06/18 12:00 04/06/18 16:00 04/06/18 20:00 Temperature 98.6 F 97.7 F Pulse Rate 86 63 127 H Respiratory Rate 16 18 Blood Pressure 141/76 H 170/88 H Pulse Oximetry 99 98 04/06/18 22:16 04/07/18 00:00 04/07/18 00:14 Temperature 97.2 F L Pulse Rate 103 H 121 H Respiratory Rate 18 Blood Pressure 219/89 H 184/100 H Pulse Oximetry 99 04/07/18 01:30 04/07/18 04:00 Temperature 98.3 F Pulse Rate 112 H 101 H Respiratory Rate 18 Blood Pressure 150/63 H Pulse Oximetry 95 Intake & Output 04/06/18 04/07/18 04/07/18 18:59 06:59 18:59 Intake Total 220 / 220 1480 / 1480 Balance 220 / 220 1480 / 1480 Weight 79.9 kg Intake: IV 1000 / 1000 Potassium Chlor 20 mEq/NACL 0. 1000 / 1000 45% Inj 1,000 ML @ 80 mls/hr IV .CONT .[id number] [facility] Rx#:[id number] Oral 220 / 220 480 / 480 Other: # Incontinent Voids 3 # Urine Diapers 4 # Bowel Movements 1 0 Narrative: GENERAL: Elderly male patient in [facility]. Disoriented. SKIN: Warm and dry. No rash. HEENT: Normocephalic. Atraumatic. Pupils equal and round. Mucous membranes pink and moist. CARDIOVASCULAR: Regular rate and rhythm. No murmur appreciated. RESPIRATORY: No accessory muscle use. Clear to auscultation. Breath sounds equal bilaterally. GASTROINTESTINAL: Abdomen soft, non-tender, nondistended. Normoactive bowel sounds x4. MUSCULOSKELETAL: No obvious deformities. Extremities without clubbing, cyanosis , or edema. NEUROLOGICAL: Awake and alert. No obvious cranial nerve deficits. Moving all extremities spontaneously. Normal speech. PSYCHIATRIC: insight and judgment limited. Results - Labs CBC & Chem 7: 04/02/18 10:13 04/07/18 06:20 Laboratory Results - last 24 hr 04/07/18 06:20 Sodium 143 Potassium 3.9 Chloride 114 H Carbon Dioxide 19.7 L Anion Gap 9 BUN 13 Creatinine 1.29 Estimated GFR 67 L Random Glucose 115 H Calcium 8.8 Microbiology 03/16/18 15:53 Cerebral Spinal Fluid - Lumbar Puncture Acid Fast Bacilli Smear - Final No acid fast bacilli seen 03/16/18 15:53 Cerebral Spinal Fluid - Lumbar Puncture Mycobacterial Culture - Preliminary No growth in 3 weeks - Procedures 03/17 lumbar puncture with radiology Assessment and Plan - Assessment (1) Dementia Code(s): F03.90 - Unspecified dementia without behavioral disturbance Status: Acute - Plan 67-year-old male with history of hypertension presents with AMS via EVAC under [employer] act after being found by police officer crime prevention on the side of the road in a vehicle that was disabled due to running out of gas, per ER report. Reportedly patient drove his car here from [place]. Acute encephalopathy/altered mental status: Unclear etiology. -Head CT and brain MRI reviewed and unremarkable -Chest CTA negative for PE, no effusions, no congestive failure, no emphysema -CXR reviewed and unremarkable -Labs mostly unremarkable, ammonia wnl, no CO2 retention, BG wnl, UDS negative -No obvious signs of infection, UA, urine culture, and CXR negative -Blood cultures with NGTD -EEG reviewed and unremarkable -Lumbar puncture unremarkable without any etiology for confusion -S/p empiric IV Vanco/Ampicillin/Rocephin/Acyclovir per neurology, now discontinued -Neurology consulted, appreciate assistance, now signed off -Psychiatry consulted, discussed with Dr. Julio, Ferro Act lifted, however agrees patient severely lacks capacity -Palliative care consulted, appreciate assistance -soft restraints as needed -Needs rehab Accelerated Hypertension: -Continue on toprol XL 50mg qd, held lisinopril with JOHN -Hydralazine prn -Monitor BP, adjust antihypertensives as needed Hypokalemia: K 3.2, likely secondary to decreased oral intake -give po and IV KCl replacement -monitor electrolytes, replace as needed Acute Renal Failure: Cr 2.64 on 04/01, previously 1.22 on 03/18. Likely secondary to dehydration -continue IVF hydration -avoid nephrotoxins -started on IVF on 04/01, decreased fluids from 125cc/hr to 80cc/hr on 04/05 -repeat BMP continues to improve, Cr 1.29 -recheck BMP on 04/08, if stable, can likely d/c IVF DVT Prophylaxis: teds/SCDs; Heparin sq Discharge Planning: Needs placement. Case management to assist with discharge planning. Unsafe discharge home with family, requires 24hour supervision.
[2018-04-07] MEDS: Heparin - SQ 10,000 UNITS/ML Vial SQ SCH ×2 (08:57→21:14)
[2018-04-08] MEDS: KCL 20 mEq/NACL 0.45% Inj 1,000 ML IV.CONT SCH (01:58)
[2018-04-08 09:24] LABS: Calcium 8.5 mg/dL (8.5-10.1); Carbon Dioxide 22.5 meq/L (21.0-32.0); Potassium 4.3 meq/L (3.5-5.1)
[2018-04-08] MEDS: Heparin - SQ 10,000 UNITS/ML Vial SQ SCH ×2 (10:00→20:39)
--- NOTE | 2018-04-08 11:15 | P.PN ---
Subjective Interval history: Follow-up visit for encephalopathy and acute kidney injury. Patient seen and examined resting in bed in four-point restraints. Spoke with nurse reports patient was agitated throughout the night and received Haldol and required restraints. He is seen and examined resting in bed, lethargic, does follow commands. Physical Exam Vital signs: Vital Signs 04/07/18 12:00 04/07/18 16:00 04/07/18 20:00 Temperature 98 F 98.2 F 98.5 F Pulse Rate 103 H 81 74 Respiratory Rate 18 18 17 Blood Pressure 159/92 H 172/84 H 162/77 H Pulse Oximetry 98 99 100 04/07/18 21:00 04/07/18 23:55 04/08/18 00:00 Temperature 98.8 F Pulse Rate 84 130 H 89 Respiratory Rate 19 Blood Pressure 168/73 H Pulse Oximetry 100 04/08/18 01:00 04/08/18 04:00 04/08/18 06:00 Temperature 99 F Pulse Rate 94 H 87 78 Respiratory Rate 17 Blood Pressure 153/67 H Pulse Oximetry 100 04/08/18 08:00 Temperature 98.0 F Pulse Rate 60 Respiratory Rate 17 Blood Pressure 138/75 Pulse Oximetry 98 Intake & Output 04/07/18 04/08/18 04/08/18 18:59 06:59 18:59 Intake Total 1480 / 1480 1240 / 1240 Balance 1480 / 1480 1240 / 1240 Weight 80.6 kg Intake: IV 1000 / 1000 1000 / 1000 Potassium Chlor 20 mEq/NACL 0. 1000 / 1000 1000 / 1000 45% Inj 1,000 ML @ 80 mls/hr IV .CONT .[id number] [facility] Rx#:[id number] Oral 480 / 480 240 / 240 Other: # Voids 4 # Urine Diapers 4 Date of Last Bowel Movement 04/08/18 # Bowel Movements 1 Narrative: GENERAL: Elderly male patient in [facility]. Disoriented. SKIN: Warm and dry. No rash. HEENT: Normocephalic. Atraumatic. Mucous membranes pink and moist. CARDIOVASCULAR: Regular rate and rhythm. No murmur appreciated. RESPIRATORY: No accessory muscle use. Clear to auscultation. Breath sounds equal bilaterally. GASTROINTESTINAL: Abdomen soft, non-tender, nondistended. Normoactive bowel sounds x4. MUSCULOSKELETAL: No obvious deformities. Extremities without clubbing, cyanosis , or edema. NEUROLOGICAL: Lethargic but awakens to tactile stimuli no obvious cranial nerve deficits. Moving all extremities spontaneously. Normal speech. PSYCHIATRIC: insight and judgment limited. Results - Labs CBC & Chem 7: 04/02/18 10:13 04/08/18 07:23 Laboratory Results - last 24 hr 04/08/18 07:23 Sodium 144 Potassium 4.3 Chloride 115 H Carbon Dioxide 22.5 Anion Gap 7 BUN 14 Creatinine 1.29 Estimated GFR 67 L Random Glucose 79 Calcium 8.5 - Procedures 03/17 lumbar puncture with radiology Assessment and Plan - Assessment (1) Dementia Code(s): F03.90 - Unspecified dementia without behavioral disturbance Status: Acute - Plan 67-year-old male with history of hypertension presents with AMS via EVAC under [employer] act after being found by bank officer on the side of the road in a vehicle that was disabled due to running out of gas, per ER report. Reportedly patient drove his car here from [place]. Acute encephalopathy/altered mental status: Unclear etiology. -Head CT and brain MRI reviewed and unremarkable -Chest CTA negative for PE, no effusions, no congestive failure, no emphysema -CXR reviewed and unremarkable -Labs mostly unremarkable, ammonia wnl, no CO2 retention, BG wnl, UDS negative -No obvious signs of infection, UA, urine culture, and CXR negative -Blood cultures with NGTD -EEG reviewed and unremarkable -Lumbar puncture unremarkable without any etiology for confusion -S/p empiric IV Vanco/Ampicillin/Rocephin/Acyclovir per neurology, now discontinued -Neurology consulted, appreciate assistance, now signed off -Psychiatry consulted, discussed with Dr. Julio, Ferro Act lifted, however agrees patient severely lacks capacity -Palliative care consulted, appreciate assistance -soft restraints as needed -Needs rehab Accelerated Hypertension: -Continue on toprol XL 50mg qd, held lisinopril with JOHN -Hydralazine prn -Monitor BP, adjust antihypertensives as needed Hypokalemia, likely secondary to decreased oral intake -Continue oral K replacement -monitor electrolytes, replace as needed Acute Renal Failure: Cr 2.64 on 04/01, previously 1.22 on 03/18. Likely secondary to dehydration -avoid nephrotoxins -started on IVF on 04/01, decreased fluids from 125cc/hr to 80cc/hr on 04/05 -Creatinine improved, recheck BMP stable. Discontinue IV fluids, continue encouraging oral hydration and follow BMP in 2 days. DVT Prophylaxis: teds/SCDs; Heparin sq Discussed Condition With: Patient and taxation accountant Planning: CM talked to patient's sister and son who plan on signing patient out to the hospital tomorrow.
[2018-04-09] MEDS: Haloperidol Inj 5 MG/ML Ampul IM PRN (00:34)
[2018-04-09] MEDS: hydrALAZINE HCl Inj 20 MG/ML Vial IV.PUSH PRN (00:51)
[2018-04-09] MEDS: Heparin - SQ 10,000 UNITS/ML Vial SQ SCH ×2 (09:19→21:02)
--- NOTE | 2018-04-09 10:10 | P.PN ---
Subjective Interval history: Follow-up visit for encephalopathy and JOHN. Patient seen and examined sitting up in bed with aide at bedside helping with breakfast this morning. Aid at bedside reports patient is not eating much. Patient is awake and alert oriented possibly to self, responds appropriately to his name however believes that his date of is March 26. Denies any pain, shortness of breath, nausea or vomiting. Nurse reports that operation shift supervisor nurse around 8 PM noticed patient was alert and oriented to self, place, time and situation however shortly after that around once again became disoriented, patient also continues to be in soft restraints. Physical Exam Vital signs: Vital Signs 04/08/18 12:00 04/08/18 16:00 04/08/18 18:00 Temperature 97.7 F 97.9 F Pulse Rate 66 61 57 L Respiratory Rate 17 18 Blood Pressure 129/60 134/70 Pulse Oximetry 100 98 04/08/18 19:51 04/08/18 20:00 04/09/18 00:00 Temperature 97.8 F 98.9 F Pulse Rate 76 72 91 H Respiratory Rate 17 20 Blood Pressure 150/75 H 188/90 H Pulse Oximetry 99 94 L 04/09/18 00:08 04/09/18 02:25 04/09/18 02:45 Temperature 98.1 F Pulse Rate 99 H 121 H 79 Respiratory Rate 40 H 24 Blood Pressure 149/69 H Pulse Oximetry 98 04/09/18 03:51 04/09/18 04:00 Temperature 98.2 F Pulse Rate 90 110 H Respiratory Rate 16 Blood Pressure 145/83 H Pulse Oximetry 94 L Intake & Output 04/08/18 04/09/18 04/09/18 18:59 06:59 18:59 Intake Total 940 / 940 420 / 420 Output Total 700 / 700 Balance 940 / 940 -280 / -280 Weight 81 kg Intake: IV 700 / 700 Potassium Chlor 20 mEq/NACL 0. 700 / 700 45% Inj 1,000 ML @ 80 mls/hr IV .CONT .[id number] [facility] Rx#:[id number] Oral 240 / 240 420 / 420 Output: Urine 700 / 700 Other: # Incontinent Voids 3 2 Date of Last Bowel Movement 04/08/18 # Bowel Movements 1 Narrative: GENERAL: Elderly male patient in NAD. Disoriented. SKIN: Warm and dry. No rash. HEENT: Normocephalic. Atraumatic. Mucous membranes pink and moist. CARDIOVASCULAR: Regular rate and rhythm. No murmur appreciated. RESPIRATORY: No accessory muscle use. Clear to auscultation. Breath sounds equal bilaterally. GASTROINTESTINAL: Abdomen soft, non-tender, nondistended. Normoactive bowel sounds x4. MUSCULOSKELETAL: No obvious deformities. Extremities without clubbing, cyanosis , or edema. NEUROLOGICAL: Awake and alert oriented to self, following commands. Moving all extremities spontaneously. Normal speech. PSYCHIATRIC: insight and judgment limited. Results - Labs CBC & Chem 7: 04/02/18 10:13 04/08/18 07:23 - Procedures 03/17 lumbar puncture with radiology Assessment and Plan - Assessment (1) Dementia Code(s): F03.90 - Unspecified dementia without behavioral disturbance Status: Acute - Plan 67-year-old male with history of hypertension presents with AMS via EVAC under Ferro act after being found by police magistrate on the side of the road in a vehicle that was disabled due to running out of gas, per ER report. Reportedly patient drove his car here from [place]. Acute encephalopathy/altered mental status: Unclear etiology. -Head CT and brain MRI reviewed and unremarkable -Chest CTA negative for PE, no effusions, no congestive failure, no emphysema -CXR reviewed and unremarkable -Labs mostly unremarkable, ammonia wnl, no CO2 retention, BG wnl, UDS negative -No obvious signs of infection, UA, urine culture, and CXR negative -Blood cultures with NGTD -EEG reviewed and unremarkable -Lumbar puncture unremarkable without any etiology for confusion -S/p empiric IV Vanco/Ampicillin/Rocephin/Acyclovir per neurology, now discontinued -Neurology consulted, appreciate assistance, now signed off -Psychiatry consulted, discussed with Dr. Julio, Ferro Act lifted, however agrees patient severely lacks capacity -Palliative care consulted, appreciate assistance -soft restraints as needed -Needs rehab Accelerated Hypertension: -Continue on toprol XL 50mg qd, held lisinopril with JOHN -Hydralazine prn -Monitor BP, adjust antihypertensives as needed Hypokalemia, likely secondary to decreased oral intake -Continue oral K replacement -monitor electrolytes, replace as needed Acute Renal Failure: Cr 2.64 on 04/01, previously 1.22 on 03/18. Likely secondary to dehydration -avoid nephrotoxins -s/p IVF, creatinine improved, continue to encourage oral intake. Poor PO intake - Consult to waxing machine operator helper for recommendations - May need calorie count - Start Megace DVT Prophylaxis: teds/SCDs; Heparin sq Discussed Condition With: Patient and fitness sales consultant Planning: CM talked to patient's sister and son who plan on signing patient out to the hospital AMA.
--- NOTE | 2018-04-09 15:13 | P.DIET ---
Nutritional Evaluation Type of nutrition evaluation: initial Nutrition consult regarding: Diet Evaluation Nutrition screening: Poor PO Intake, [facility] Objective - Diagnosis AMS, lactic acidosis, UTI - Objective Body Mass Index: 24.9 [place] body weight: 78 kg (172 lbs) % IBW: 104 Body Weight Used for Calculations: Actual (81kg) Energy Needs - Lower Range (kCal/kg): 25 Energy Needs - Upper Range (kCal/kg): 30 Lower Limit kCal/kg (kCals): 2,025 Upper Limit kCal/kg (kCals): 2,430 Lower Limit Protein Factor (Grams per Kg): 0.8 Upper Limit Protein Factor (Grams per Kg): 1.0 Lower Protein Needs (Protein): 65 Upper Protein Needs (Protein): 81 Dietitian Reviewed in Medical Record: Current diet, Curent medications, Labs, Medical history Diet Order: Regular Oral Diet Intake Amount: Poor <50% Objective Comments: PMH; Medical history unknown Labs; nutritionally unremarkable Medications; reviewed Assessment Assessment: [facility] Poor PO intake; Pt admitted to ED with altered mental status of unclear etiology and is currently at nutritional risk related to poor PO intake. Pt is currently ordered for regular diet with PO intake ~25-50%. Spoke with RN Rose who reports that pt does better when his family is here and brings in food. Also receiving Ensure Enlive and per RN he drank two yesterday. At this time will continue to recommend Ensure Enlive supplement. Each can will provide 350kcals and 20g protein. Labs and medications reviewed. Please continue to provide assistance with meals if needed and encourage PO intake. Will continue to monitor PO intake and supplement acceptance and make further recommendations as needed. Recommendations: 1. Continue to encourage family to bring in meals and engage pt in eating 2. Continue with Enlive supplement 3. Provide assistance with meals as needed 4. Dietitian following and will make further recommendations as needed
[2018-04-10] MEDS: hydrALAZINE HCl Inj 20 MG/ML Vial IV.PUSH PRN (00:51)
[2018-04-10] MEDS: Megestrol Acetate Liq 400 MG/10 ML UDC PO SCH (10:03)
[2018-04-10] MEDS: Heparin - SQ 10,000 UNITS/ML Vial SQ SCH ×2 (10:03→22:11)
--- NOTE | 2018-04-10 11:15 | P.PN ---
Subjective Interval history: Follow-up visit for encephalopathy. Patient is seen and examined sitting up in bed in no acute distress. He is awake and alert and oriented to self, following commands. Denies any pain, shortness of breath or headache. Nurse does not report any acute events overnight or early this morning. Physical Exam Vital signs: Vital Signs 04/09/18 12:00 04/09/18 16:00 04/09/18 20:00 Temperature 99.3 F 98.7 F 98.2 F Pulse Rate 76 70 83 Respiratory Rate 20 20 18 Blood Pressure 113/57 L 147/69 H 169/78 H Pulse Oximetry 99 100 99 04/09/18 20:01 04/09/18 23:53 04/10/18 00:00 Temperature 98.5 F Pulse Rate 69 97 H 92 H Respiratory Rate 18 Blood Pressure 188/81 H Pulse Oximetry 100 04/10/18 03:42 04/10/18 04:00 04/10/18 08:00 Temperature 98.2 F 98.7 F Pulse Rate 105 H 91 H 77 Respiratory Rate 18 19 Blood Pressure 140/53 L 139/67 Pulse Oximetry 97 98 Intake & Output 04/09/18 04/10/18 04/10/18 18:59 06:59 18:59 Intake Total 560 / 560 480 / 480 Output Total 150 / 150 Balance 560 / 560 330 / 330 Weight 79.1 kg Intake: Oral 560 / 560 480 / 480 Output: Urine 150 / 150 Other: # Voids 4 # Urine Diapers 2 # Bowel Movements 0 Narrative: GENERAL: Elderly male patient in NAD. Disoriented. SKIN: Warm and dry. No rash. HEENT: Normocephalic. Atraumatic. Mucous membranes pink and moist. CARDIOVASCULAR: Regular rate and rhythm. No murmur appreciated. RESPIRATORY: No accessory muscle use. Clear to auscultation. Breath sounds equal bilaterally. GASTROINTESTINAL: Abdomen soft, non-tender, nondistended. Normoactive bowel sounds x4. MUSCULOSKELETAL: No obvious deformities. Extremities without clubbing, cyanosis , or edema. NEUROLOGICAL: Awake and alert oriented to self, following commands. Moving all extremities spontaneously. Normal speech. PSYCHIATRIC: insight and judgment limited. Results - Labs CBC & Chem 7: 04/02/18 10:13 04/08/18 07:23 - Procedures 03/17 lumbar puncture with radiology Assessment and Plan - Assessment (1) Dementia Code(s): F03.90 - Unspecified dementia without behavioral disturbance Status: Acute - Plan 67-year-old male with history of hypertension presents with AMS via EVAC under [employer] act after being found by police magistrate on the side of the road in a vehicle that was disabled due to running out of gas, per ER report. Reportedly patient drove his car here from [place]. Acute encephalopathy/altered mental status: Unclear etiology. -Head CT and brain MRI reviewed and unremarkable -Chest CTA negative for PE, no effusions, no congestive failure, no emphysema -CXR reviewed and unremarkable -Labs mostly unremarkable, ammonia wnl, no CO2 retention, BG wnl, UDS negative -No obvious signs of infection, UA, urine culture, and CXR negative -Blood cultures with NGTD -EEG reviewed and unremarkable -Lumbar puncture unremarkable without any etiology for confusion -S/p empiric IV Vanco/Ampicillin/Rocephin/Acyclovir per neurology, now discontinued -Neurology consulted, appreciate assistance, now signed off -Psychiatry consulted, discussed with Dr. Julio, Ferro Act lifted, however agrees patient severely lacks capacity -Palliative care consulted, appreciate assistance -soft restraints as needed - PRN Haldol IM, requiring mostly at HS, [facility] unable to accept if patient is on Haldol. Previously on Seroquel TID, sleepy so dose reduced, later DC per sons request. -Needs rehab, will DC Haldol and schedule HS Seroquel Accelerated Hypertension: -Continue on toprol XL 50mg qd, held lisinopril with JOHN -Hydralazine prn -Monitor BP, adjust antihypertensives as needed Hypokalemia, likely secondary to decreased oral intake -Continue oral K replacement -monitor electrolytes, replace as needed - BMP in the a.m. Acute Renal Failure: Cr 2.64 on 04/01, previously 1.22 on 03/18. Likely secondary to dehydration -avoid nephrotoxins -s/p IVF, creatinine improved, continue to encourage oral intake. Poor PO intake - Consult to bin cleaner for recommendations - calorie count underway - Megace DVT Prophylaxis: teds/SCDs; Heparin sq Discussed Condition With: Patient and corporate buyer Planning: [facility] have submitted for auth, patient must be off Haldol. Will switch to Seroquel.
--- NOTE | 2018-04-10 15:39 | P.PNPAL ---
Received a call from Mignon Aranda with [employer] at [phone] regarding Kalyan Conte. She reports she spoke with patients son and reportedly has secured possible placement for him in [place]. The information is below. [facility] memory care unit [id number] [place] [address] This information was passed along with case folder.
[2018-04-10] MEDS ORDERED: QUEtiapine 25 MG Tablet PO ONE (21:00)
[2018-04-11 08:35] LABS: Calcium 9.2 mg/dL (8.5-10.1); Potassium 3.8 meq/L (3.5-5.1)
[2018-04-11] MEDS: QUEtiapine 25 MG Tablet PO SCH (09:07)
[2018-04-11] MEDS: Heparin - SQ 10,000 UNITS/ML Vial SQ SCH ×2 (09:07→22:07)
[2018-04-11] MEDS: Megestrol Acetate Liq 400 MG/10 ML UDC PO SCH (09:07)
--- NOTE | 2018-04-11 10:31 | P.PN ---
Subjective Interval history: Follow-up visit for encephalopathy. Patient seen and examined sitting up in bed in no acute distress. He answers to his name and is oriented to self, following commands, denies pain. Nurse reports patient has been eating very little, seems calm today. Physical Exam Vital signs: Vital Signs 04/10/18 12:00 04/10/18 16:00 04/10/18 20:00 Temperature 98.8 F 98.9 F 98.3 F Pulse Rate 57 L 76 64 Respiratory Rate 19 18 18 Blood Pressure 149/67 H 131/77 125/69 Pulse Oximetry 98 99 99 04/11/18 00:00 04/11/18 04:00 04/11/18 08:00 Temperature 98.3 F 98.3 F 98.5 F Pulse Rate 60 67 67 Respiratory Rate 17 17 18 Blood Pressure 139/69 147/71 H 150/74 H Pulse Oximetry 98 96 99 Intake & Output 04/10/18 04/11/18 04/11/18 18:59 06:59 18:59 Intake Total 340 / 340 460 / 460 Output Total 225 / 225 300 / 300 Balance 115 / 115 160 / 160 Weight 78.1 kg Intake: Oral 340 / 340 460 / 460 Output: Urine 225 / 225 300 / 300 Other: # Voids 4 # Urine Diapers 2 Date of Last Bowel Movement 04/08/18 04/10/18 # Bowel Movements 1 1 Narrative: GENERAL: Elderly male patient in NAD. Disoriented. SKIN: Warm and dry. No rash. HEENT: Normocephalic. Atraumatic. Mucous membranes pink and moist. CARDIOVASCULAR: Regular rate and rhythm. No murmur appreciated. RESPIRATORY: No accessory muscle use. Clear to auscultation. Breath sounds equal bilaterally. GASTROINTESTINAL: Abdomen soft, non-tender, nondistended. Normoactive bowel sounds x4. MUSCULOSKELETAL: No obvious deformities. Extremities without clubbing, cyanosis , or edema. NEUROLOGICAL: Awake and alert oriented to self, following commands. Moving all extremities spontaneously. Normal speech. PSYCHIATRIC: insight and judgment limited. Results - Labs CBC & Chem 7: 04/02/18 10:13 04/11/18 07:36 Laboratory Results - last 24 hr 04/11/18 07:36 Sodium 143 Potassium 3.8 Chloride 112 H Carbon Dioxide 24.0 Anion Gap 7 BUN 16 Creatinine 1.29 Estimated GFR 67 L Random Glucose 80 Calcium 9.2 - Procedures 03/17 lumbar puncture with radiology Assessment and Plan - Assessment (1) Dementia Code(s): F03.90 - Unspecified dementia without behavioral disturbance Status: Acute - Plan 67-year-old male with history of hypertension presents with AMS via EVAC under [employer] act after being found by secretary of police on the side of the road in a vehicle that was disabled due to running out of gas, per ER report. Reportedly patient drove his car here from [place]. Acute encephalopathy/altered mental status: Unclear etiology. -Head CT and brain MRI reviewed and unremarkable -Chest CTA negative for PE, no effusions, no congestive failure, no emphysema -CXR reviewed and unremarkable -Labs mostly unremarkable, ammonia wnl, no CO2 retention, BG wnl, UDS negative -No obvious signs of infection, UA, urine culture, and CXR negative -Blood cultures with NGTD -EEG reviewed and unremarkable -Lumbar puncture unremarkable without any etiology for confusion -S/p empiric IV Vanco/Ampicillin/Rocephin/Acyclovir per neurology, now discontinued -Neurology consulted, appreciate assistance, now signed off -Psychiatry consulted, discussed with Dr. Julio, Ferro Act lifted, however agrees patient severely lacks capacity -Palliative care consulted, appreciate assistance -soft restraints as needed - PRN Haldol IM, requiring mostly at HS, [facility] unable to accept if patient is on Haldol. Previously on Seroquel TID, sleepy so dose reduced, later DC per sons request. -Needs rehab, continue low-dose Seroquel in the morning and 25 mg of Seroquel at bedtime. Attempt to remove restraints. Accelerated Hypertension: -Continue on toprol XL 50mg qd, held lisinopril with JOHN -Hydralazine prn -Monitor BP, adjust antihypertensives as needed Hypokalemia, likely secondary to decreased oral intake -Continue oral K replacement -monitor electrolytes, replace as needed - BMP in the a.m. Acute Renal Failure: Cr 2.64 on 04/01, previously 1.22 on 03/18. Likely secondary to dehydration -avoid nephrotoxins -s/p IVF, creatinine improved, continue to encourage oral intake. Poor PO intake - Consult to well service floorperson for recommendations - calorie count underway - Megace DVT Prophylaxis: teds/SCDs; Heparin sq Discussed Condition With: sql analyst Planning: Case management assisting with placement.
[2018-04-12] MEDS: Megestrol Acetate Liq 400 MG/10 ML UDC PO SCH (09:01)
[2018-04-12] MEDS: Heparin - SQ 10,000 UNITS/ML Vial SQ SCH ×2 (09:01→20:17)
[2018-04-12] MEDS: QUEtiapine 25 MG Tablet PO SCH ×2 (09:02→20:17)
[2018-04-12] MEDS: amLODIPine 5 MG Tablet PO SCH (09:09)
--- NOTE | 2018-04-12 10:15 | P.PN ---
Subjective Interval history: Follow-up visit for encephalopathy. Patient seen and examined sitting up in bed with with nurse present administering medications. He is awake and alert, oriented to self, following commands. No acute events reported overnight or this morning. Nurse reports patient continues to require restraints due to agitation overnight. Physical Exam Vital signs: Vital Signs 04/11/18 12:00 04/11/18 16:00 04/11/18 20:00 Temperature 98.0 F 98.1 F 98.1 F Pulse Rate 54 L 68 112 H Respiratory Rate 18 20 18 Blood Pressure 148/98 H 142/82 H 158/77 H Pulse Oximetry 99 99 100 04/12/18 00:00 04/12/18 04:00 04/12/18 08:00 Temperature 98.1 F 97.9 F 98.4 F Pulse Rate 116 H 114 H 75 Respiratory Rate 17 16 19 Blood Pressure 171/82 H 178/86 H 161/82 H Pulse Oximetry 99 99 99 Intake & Output 04/11/18 04/12/18 04/12/18 18:59 06:59 18:59 Intake Total 360 / 360 120 / 120 Balance 360 / 360 120 / 120 Weight 77.3 kg Intake: Oral 360 / 360 120 / 120 Other: # Voids 2 1 # Bowel Movements 0 Narrative: GENERAL: Elderly male patient in NAD. Disoriented. SKIN: Warm and dry. No rash. HEENT: Normocephalic. Atraumatic. Mucous membranes pink and moist. CARDIOVASCULAR: Regular rate and rhythm. No murmur appreciated. RESPIRATORY: No accessory muscle use. Clear to auscultation. Breath sounds equal bilaterally. GASTROINTESTINAL: Abdomen soft, non-tender, nondistended. Normoactive bowel sounds x4. MUSCULOSKELETAL: No obvious deformities. Extremities without clubbing, cyanosis , or edema. NEUROLOGICAL: Awake and alert oriented to self, following commands. Moving all extremities spontaneously. Normal speech. PSYCHIATRIC: insight and judgment limited. Results - Labs CBC & Chem 7: 04/02/18 10:13 04/11/18 07:36 - Procedures 03/17 lumbar puncture with radiology Assessment and Plan - Assessment (1) Dementia Code(s): F03.90 - Unspecified dementia without behavioral disturbance Status: Acute - Plan 67-year-old male with history of hypertension presents with AMS via EVAC under Ferro act after being found by police detective on the side of the road in a vehicle that was disabled due to running out of gas, per ER report. Reportedly patient drove his car here from [place]. Acute encephalopathy/altered mental status: Unclear etiology. -Head CT and brain MRI reviewed and unremarkable -Chest CTA negative for PE, no effusions, no congestive failure, no emphysema -CXR reviewed and unremarkable -Labs mostly unremarkable, ammonia wnl, no CO2 retention, BG wnl, UDS negative -No obvious signs of infection, UA, urine culture, and CXR negative -Blood cultures with NGTD -EEG reviewed and unremarkable -Lumbar puncture unremarkable without any etiology for confusion -S/p empiric IV Vanco/Ampicillin/Rocephin/Acyclovir per neurology, now discontinued -Neurology consulted, appreciate assistance, now signed off -Psychiatry consulted, discussed with Dr. Julio, [place] Act lifted, however agrees patient severely lacks capacity -Palliative care consulted, appreciate assistance -soft restraints as needed - PRN Haldol IM, requiring mostly at HS, [facility] unable to accept if patient is on Haldol. Previously on Seroquel TID, sleepy so dose reduced, later DC per sons request. -Needs rehab, continue low-dose Seroquel in the morning and 25 mg of Seroquel at bedtime. Accelerated Hypertension: -Continue on toprol XL 50mg qd, lisinopril held due to JOHN - BP slightly on the higher side, add Norvasc 5mg daily - monitor and adjust medications accordingly -Hydralazine prn Hypokalemia, likely secondary to decreased oral intake -Continue oral K replacement -last BMP stable Acute Renal Failure: Cr 2.64 on 04/01, previously 1.22 on 03/18. Likely secondary to dehydration -avoid nephrotoxins -s/p IVF, creatinine improved, continue to encourage oral intake. Poor PO intake - Consult to informatica for recommendations - calorie count underway - Megace DVT Prophylaxis: teds/SCDs; Heparin sq Discussed Condition With: national accounts sales Planning: Case management assisting with placement.
--- NOTE | 2018-04-13 09:33 | P.PN ---
Subjective Interval history: Follow-up for dementia with AMS. Nurse reports patient still with agitation on nights. Patient is seen and examined resting in bed with eyes closed, awakens to voice and touch. Denies pain and follows commands, still in restraints. Physical Exam Vital signs: Vital Signs 04/12/18 12:00 04/12/18 16:00 04/12/18 20:00 Temperature 98.5 F 98.0 F 97.8 F Pulse Rate 73 62 70 Respiratory Rate 18 18 18 Blood Pressure 158/80 H 119/67 149/83 H Pulse Oximetry 99 99 99 04/12/18 20:30 04/12/18 23:50 04/13/18 00:00 Temperature 97.8 F Pulse Rate 84 55 L 58 L Respiratory Rate 17 Blood Pressure 169/82 H Pulse Oximetry 98 04/13/18 04:00 04/13/18 08:00 Temperature 97.6 F 97.9 F Pulse Rate 60 53 L Respiratory Rate 19 18 Blood Pressure 167/82 H 151/74 H Pulse Oximetry 96 99 Intake & Output 04/12/18 04/13/18 04/13/18 18:59 06:59 18:59 Intake Total 420 / 420 60 / 60 Balance 420 / 420 60 / 60 Weight 77.5 kg Intake: Oral 420 / 420 60 / 60 Other: # Voids 3 1 Date of Last Bowel Movement 04/10/18 # Bowel Movements 2 Narrative: GENERAL: Elderly male patient in NAD. Disoriented. SKIN: Warm and dry. No rash. HEENT: Normocephalic. Atraumatic. Mucous membranes pink and moist. CARDIOVASCULAR: Regular rate and rhythm. No murmur appreciated. RESPIRATORY: No accessory muscle use. Clear to auscultation. Breath sounds equal bilaterally. GASTROINTESTINAL: Abdomen soft, non-tender, nondistended. Normoactive bowel sounds x4. MUSCULOSKELETAL: No obvious deformities. Extremities without clubbing, cyanosis , or edema. NEUROLOGICAL: Awakens to touch, confused, following commands. Moving all extremities spontaneously. Normal speech. PSYCHIATRIC: insight and judgment limited. Results - Labs CBC & Chem 7: 04/02/18 10:13 04/11/18 07:36 - Procedures 03/17 lumbar puncture with radiology Assessment and Plan - Assessment (1) Dementia Code(s): F03.90 - Unspecified dementia without behavioral disturbance Status: Acute - Plan 67-year-old male with history of hypertension presents with AMS via EVAC under Ferro act after being found by police manager on the side of the road in a vehicle that was disabled due to running out of gas, per ER report. Reportedly patient drove his car here from [place]. Acute encephalopathy/altered mental status: Unclear etiology. Dementia -Head CT and brain MRI reviewed and unremarkable -Chest CTA negative for PE, no effusions, no congestive failure, no emphysema -CXR reviewed and unremarkable -Labs mostly unremarkable, ammonia wnl, no CO2 retention, BG wnl, UDS negative -No obvious signs of infection, UA, urine culture, and CXR negative -Blood cultures with NGTD -EEG reviewed and unremarkable -Lumbar puncture unremarkable without any etiology for confusion -S/p empiric IV Vanco/Ampicillin/Rocephin/Acyclovir per neurology, now discontinued -Neurology consulted, appreciate assistance, now signed off -Psychiatry consulted, discussed with Dr. Julio, Ferro Act lifted, however agrees patient severely lacks capacity -Palliative care consulted, appreciate assistance -soft restraints as needed, try to DC if possible -Needs rehab CM to assist with placement - Continue Seroquel, consider TID, check EKG Accelerated Hypertension: -Continue on toprol XL 50mg qd, lisinopril held due to JOHN - BP improved, continue Norvasc - monitor and adjust medications accordingly -Hydralazine prn Hypokalemia, likely secondary to decreased oral intake -Continue oral K replacement -last BMP stable Acute Renal Failure: Cr 2.64 on 04/01, previously 1.22 on 03/18. Likely secondary to dehydration -avoid nephrotoxins -s/p IVF, creatinine improved, continue to encourage oral intake. Poor PO intake - Consult to school bus attendant for recommendations - calorie count underway - Megace DVT Prophylaxis: teds/SCDs; Heparin sq Discussed Condition With: RN, mental health case manager, son at bedside. Discharge Planning: Case management assisting with placement, patient doing well and may not necessarily need rehab. Physical therapy to obtain notes and possible discharge to [facility] with home health.
[2018-04-13] MEDS: QUEtiapine 25 MG Tablet PO SCH ×2 (09:50→20:25)
[2018-04-13] MEDS: Megestrol Acetate Liq 400 MG/10 ML UDC PO SCH (09:50)
[2018-04-13] MEDS: amLODIPine 5 MG Tablet PO SCH (09:50)
[2018-04-13] MEDS: Heparin - SQ 10,000 UNITS/ML Vial SQ SCH ×2 (09:50→20:25)
--- NOTE | 2018-04-13 13:19 | P.DCO ---
- Diagnosis (1) Dementia Status: Acute - Physical Therapy Order: Evaluate and treat, Improve ambulation, Strength and gait training - Occupational Therapy Order: Evaluate and treat, Improve ADL, Gross motor coordination, Fine motor coordination - Case Management Consult Case Management Consult-Home Health: Yes - Certification I have seen patient Kalyan Conte on 04/13/18. My clinical findings support the need for the requested home health care services because: Limited mobility due to disease progression I certify that my clinical findings support that this patient is homebound because: Unsteady gait/balance
[2018-04-14] MEDS: Heparin - SQ 10,000 UNITS/ML Vial SQ SCH ×2 (09:23→20:29)
[2018-04-14] MEDS: amLODIPine 5 MG Tablet PO SCH (09:23)
[2018-04-14] MEDS: QUEtiapine 25 MG Tablet PO SCH ×2 (09:23→20:29)
[2018-04-14] MEDS: Megestrol Acetate Liq 400 MG/10 ML UDC PO SCH (09:23)
--- NOTE | 2018-04-14 09:32 | P.PN ---
Subjective Interval history: Follow-up visit for encephalopathy. Patient seen and examined sitting up in bed out of restraints eating breakfast this morning in no acute distress with nurse present. Nurse reports patient did well overnight without restraints. His appetite has increased significantly and he has been, throughout the morning. Patient denies any pain in and is oriented to self, following commands. Physical Exam Vital signs: Vital Signs 04/13/18 12:00 04/13/18 16:00 04/13/18 20:00 Temperature 97.6 F 98.6 F 98.3 F Pulse Rate 65 62 71 Respiratory Rate 18 18 15 Blood Pressure 133/74 153/88 H 116/67 Pulse Oximetry 99 100 98 04/14/18 00:00 04/14/18 04:00 04/14/18 08:00 Temperature 99 F 98.8 F 98.2 F Pulse Rate 60 56 L 64 Respiratory Rate 18 18 Blood Pressure 140/72 134/60 111/64 Pulse Oximetry 95 97 98 Intake & Output 04/13/18 04/14/18 04/14/18 18:59 06:59 18:59 Intake Total 600 / 600 240 / 240 Balance 600 / 600 240 / 240 Weight 77.5 kg Intake: Oral 600 / 600 240 / 240 Other: # Voids 3 # Incontinent Voids 1 Date of Last Bowel Movement 04/12/18 # Bowel Movements 1 Narrative: GENERAL: Elderly male patient in NAD. Disoriented. SKIN: Warm and dry. No rash. HEENT: Normocephalic. Atraumatic. Mucous membranes pink and moist. CARDIOVASCULAR: Regular rate and rhythm. No murmur appreciated. RESPIRATORY: No accessory muscle use. Clear to auscultation. Breath sounds equal bilaterally. GASTROINTESTINAL: Abdomen soft, non-tender, nondistended. Normoactive bowel sounds x4. MUSCULOSKELETAL: No obvious deformities. Extremities without clubbing, cyanosis , or edema. NEUROLOGICAL: Awakens to touch, confused but calm, following commands. Moving all extremities spontaneously. Normal speech. PSYCHIATRIC: insight and judgment limited. Results - Labs CBC & Chem 7: 04/02/18 10:13 04/11/18 07:36 Microbiology 03/16/18 15:53 Cerebral Spinal Fluid - Lumbar Puncture Acid Fast Bacilli Smear - Final No acid fast bacilli seen 03/16/18 15:53 Cerebral Spinal Fluid - Lumbar Puncture Mycobacterial Culture - Preliminary No growth in 4 weeks - Procedures 03/17 lumbar puncture with radiology Assessment and Plan - Assessment (1) Dementia Code(s): F03.90 - Unspecified dementia without behavioral disturbance Status: Acute - Plan 67-year-old male with history of hypertension presents with AMS via EVAC under Fer[place] act after being found by police crime scene technician on the side of the road in a vehicle that was disabled due to running out of gas, per ER report. Reportedly patient drove his car here from [place]. Acute encephalopathy/altered mental status: Unclear etiology. Dementia -Head CT and brain MRI reviewed and unremarkable -Chest CTA negative for PE, no effusions, no congestive failure, no emphysema -CXR reviewed and unremarkable -Labs mostly unremarkable, ammonia wnl, no CO2 retention, BG wnl, UDS negative -No obvious signs of infection, UA, urine culture, and CXR negative -Blood cultures with NGTD -EEG reviewed and unremarkable -Lumbar puncture unremarkable without any etiology for confusion -S/p empiric IV Vanco/Ampicillin/Rocephin/Acyclovir per neurology, now discontinued -Neurology consulted, appreciate assistance, now signed off -Psychiatry consulted, discussed with Dr. Julio, Ferro Act lifted, however agrees patient severely lacks capacity -Palliative care consulted, appreciate assistance -Needs rehab CM to assist with placement - Continue Seroquel, patient, and out of restraints. Accelerated Hypertension: -Continue on toprol XL 50mg qd, lisinopril held due to JOHN - BP improved, continue Norvasc - monitor and adjust medications accordingly -Hydralazine prn Hypokalemia, likely secondary to decreased oral intake -Continue oral K replacement -last BMP stable Acute Renal Failure: Cr 2.64 on 04/01, previously 1.22 on 03/18. Likely secondary to dehydration -avoid nephrotoxins -s/p IVF, creatinine improved, continue to encourage oral intake. Poor PO intake - Consult to rural health consultant for recommendations - calorie count underway -Patient with increased appetite and eating majority of his meals, continue Megace DVT Prophylaxis: teds/SCDs; Heparin sq Discussed Condition With: Patient and gaming department head Planning: Case management assisting with placement, patient doing well and may not necessarily need rehab. Physical therapy to obtain notes and possible discharge to [facility] with home health.
--- NOTE | 2018-04-14 13:19 | ECG ---
Date Performed: 04/13/2018 Time Performed: 11:22:06 PTAGE: 68 years EKG: SINUS BRADYCARDIA ST DEVIATION AND MODERATE T-WAVE ABNORMALITY, CONSIDER ANTEROLATERAL ISCH EMIA ST DEVIATION AND MODERATE T-WAVE ABNORMALITY, CONSIDER INFERIOR ISCHEMIA ABNORMAL ECG Since the PREVIOUS TRACING , no significant change noted PREVIOUS TRACIN03/13/2018 06.27 DOCTOR: Rolly Elizondo Interpretating Date/Time 04/14/2018 13:17:50
[2018-04-15] MEDS: QUEtiapine 25 MG Tablet PO SCH ×2 (09:50→21:37)
[2018-04-15] MEDS: amLODIPine 5 MG Tablet PO SCH (09:51)
[2018-04-15] MEDS: Heparin - SQ 10,000 UNITS/ML Vial SQ SCH ×2 (09:51→21:37)
[2018-04-15] MEDS: Megestrol Acetate Liq 400 MG/10 ML UDC PO SCH (09:51)
--- NOTE | 2018-04-15 11:33 | P.PN ---
Subjective Interval history: Follow-up visit for encephalopathy and dementia. Patient seen and examined sitting up in chair and appears to be in no acute distress. Nursing staff reports patient is doing much better and eating well. Later in the morning seen ambulating with physical therapy with the assistance of a walker. Patient denies any pain, cough, nausea or vomiting. He is voiding without any dysuria. Physical Exam Vital signs: Vital Signs 04/14/18 12:00 04/14/18 16:00 04/14/18 20:00 Temperature 98.8 F 98.3 F 97.5 F L Pulse Rate 67 69 85 Respiratory Rate 18 18 18 Blood Pressure 102/57 L 104/58 L 154/87 H Pulse Oximetry 98 99 98 04/14/18 20:11 04/15/18 00:00 04/15/18 04:00 Temperature 99.7 F H 98.6 F Pulse Rate 96 H 99 H Respiratory Rate 15 17 Blood Pressure 142/78 H 144/80 H Pulse Oximetry 97 95 97 04/15/18 08:00 Temperature 98.1 F Pulse Rate 73 Respiratory Rate 18 Blood Pressure 128/68 Pulse Oximetry 100 Intake & Output 04/14/18 04/15/18 04/15/18 18:59 06:59 18:59 Intake Total 560 / 560 680 / 680 Balance 560 / 560 680 / 680 Weight 77.1 kg Intake: Oral 560 / 560 680 / 680 Other: # Voids 4 4 # Incontinent Voids 1 Date of Last Bowel Movement 04/13/18 Narrative: GENERAL: Elderly male patient in [facility]. SKIN: Warm and dry. No rash. HEENT: Normocephalic. Atraumatic. Mucous membranes pink and moist. CARDIOVASCULAR: Regular rate and rhythm. No murmur appreciated. RESPIRATORY: No accessory muscle use. Clear to auscultation. Breath sounds equal bilaterally. GASTROINTESTINAL: Abdomen soft, non-tender, nondistended. Normoactive bowel sounds x4. MUSCULOSKELETAL: No obvious deformities. Extremities without clubbing, cyanosis , or edema. NEUROLOGICAL: Awake and alert oriented to self, following commands. Moving all extremities spontaneously. Normal speech. PSYCHIATRIC: insight and judgment limited. Results - Labs CBC & Chem 7: 04/02/18 10:13 04/11/18 07:36 - Procedures 03/17 lumbar puncture with radiology Assessment and Plan - Assessment (1) Dementia Code(s): F03.90 - Unspecified dementia without behavioral disturbance Status: Acute - Plan 67-year-old male with history of hypertension presents with AMS via EVAC under [place] act after being found by police patrol officer on the side of the road in a vehicle that was disabled due to running out of gas, per ER report. Reportedly patient drove his car here from [place]. Acute encephalopathy/altered mental status: Unclear etiology. Dementia -Head CT and brain MRI reviewed and unremarkable -Chest CTA negative for PE, no effusions, no congestive failure, no emphysema -CXR reviewed and unremarkable -Labs mostly unremarkable, ammonia wnl, no CO2 retention, BG wnl, UDS negative -No obvious signs of infection, UA, urine culture, and CXR negative -Blood cultures with NGTD -EEG reviewed and unremarkable -Lumbar puncture unremarkable without any etiology for confusion -S/p empiric IV Vanco/Ampicillin/Rocephin/Acyclovir per neurology, now discontinued -Neurology consulted, appreciate assistance, now signed off -Psychiatry consulted, discussed with Dr. Julio, Ferro Act lifted, however agrees patient severely lacks capacity -Palliative care consulted, appreciate assistance -Needs rehab CM to assist with placement - Continue Seroquel, patient, out of restraints for 24 hours Accelerated Hypertension: -Continue on toprol XL 50mg qd, lisinopril held due to JOHN - BP improved, continue Norvasc - monitor and adjust medications accordingly -Hydralazine prn Hypokalemia, likely secondary to decreased oral intake -Continue oral K replacement -last BMP stable Acute Renal Failure: Cr 2.64 on 04/01, previously 1.22 on 03/18. Likely secondary to dehydration -avoid nephrotoxins -s/p IVF, creatinine improved, continue to encourage oral intake. Poor PO intake - Consult to parole board member for recommendations - calorie count underway -Patient with increased appetite and eating majority of his meals, continue Megace DVT Prophylaxis: teds/SCDs; Heparin sq Discussed Condition With: Patient and PT Discharge Planning: Case management assisting with placement, patient doing well and may not necessarily need rehab. Physical therapy to obtain notes and possible discharge to [facility] with home health.
[2018-04-15] MEDS: Acetaminophen 325 MG Tablet PO PRN (21:37)
[2018-04-16] MEDS: QUEtiapine 25 MG Tablet PO SCH ×2 (08:27→20:45)
[2018-04-16] MEDS: amLODIPine 5 MG Tablet PO SCH (08:29)
[2018-04-16] MEDS: Heparin - SQ 10,000 UNITS/ML Vial SQ SCH ×2 (08:29→20:44)
[2018-04-16] MEDS: Megestrol Acetate Liq 400 MG/10 ML UDC PO SCH (08:30)
--- NOTE | 2018-04-16 10:43 | P.DIET ---
Nutritional Evaluation Type of nutrition evaluation: follow-up Nutrition consult regarding: Diet Evaluation Nutrition screening: Poor PO Intake, MDC Objective - Diagnosis AMS, lactic acidosis, UTI - Objective [place] body weight: 78 kg (172 lbs) % IBW: 104 Body Weight Used for Calculations: Actual (81kg) Energy Needs - Lower Range (kCal/kg): 25 Energy Needs - Upper Range (kCal/kg): 30 Lower Limit kCal/kg (kCals): 2,025 Upper Limit kCal/kg (kCals): 2,430 Lower Limit Protein Factor (Grams per Kg): 0.8 Upper Limit Protein Factor (Grams per Kg): 1.0 Lower Protein Needs (Protein): 65 Upper Protein Needs (Protein): 81 Dietitian Reviewed in Medical Record: Current diet, Curent medications, Labs, Medical history Diet Order: Regular Oral Diet Intake Amount: Fair 50-75% Objective Comments: PMH; Medical history unknown Labs; no current labs Medications; megace Assessment Assessment: FU Poor PO intake; Pt is currently ordered for regular diet with improving PO intake around 50-75% at meals. Per MD note pt states his appetite has increased significantly, noted pt receiving megace. Will recommend to continue with current diet order and supplement. Please continue to encourage PO intake and assist with meals as needed. Dietitian will sign off as pt has consistent adequate PO intake and I have no further nutrition related concerns at this time. Please consult RD if further complications arise. Recommendations: 1. Continue with current POC- pt with adequate intake at each meal 2. Consult RD if further complications arise
--- NOTE | 2018-04-16 11:21 | P.PNIM ---
Subjective Interval history: Follow up on patient with dementia and encephalopathy. Patient seen and examined. Patient says he feels "so-so". He does not voice any specific medical complaints or concerns. DW nursing staff, no adverse events noted overnight. Physical Exam Vital signs: Vital Signs 04/15/18 12:00 04/15/18 16:00 04/15/18 20:00 Temperature 98.0 F 98.1 F 100.1 F H Pulse Rate 69 70 72 Respiratory Rate 18 18 16 Blood Pressure 114/59 L 120/60 115/69 Pulse Oximetry 100 100 99 04/16/18 00:00 04/16/18 04:00 04/16/18 08:00 Temperature 97.8 F 98.1 F 97.9 F Pulse Rate 76 84 67 Respiratory Rate 15 16 17 Blood Pressure 124/72 138/84 125/60 Pulse Oximetry 99 100 97 Intake & Output 04/15/18 04/16/18 04/16/18 18:59 06:59 18:59 Intake Total 1620 / 1620 Balance 1620 / 1620 Weight 77.4 kg Intake: Oral 1620 / 1620 Other: # Voids 5 # Urine Diapers 2 Narrative: GENERAL: WDWN male patient, [place]. Awake and alert. Partially oriented. SKIN: Warm and dry. No generalized rash. HEENT: Atraumatic. Normocephalic. Pupils equal and round. No scleral icterus. No injection or drainage. No nasal bleeding or discharge. Mucous membranes pink and moist. NECK: Trachea midline. CARDIOVASCULAR: Regular rate and rhythm. No murmur appreciated. RESPIRATORY: No accessory muscle use. Clear to auscultation. Breath sounds equal bilaterally. GASTROINTESTINAL: Abdomen soft, non-tender, nondistended. Bowel sounds normal. MUSCULOSKELETAL: Extremities without clubbing, cyanosis, or edema. No obvious deformities. NEUROLOGICAL: Awake and alert. No obvious cranial nerve deficits. Able to move all extremities spontaneously. Normal speech. PSYCHIATRIC: Calm and cooperative. Results Labs CBC & Chem 7: 04/02/18 10:13 04/11/18 07:36 Procedures Procedures: 03/17 lumbar puncture with radiology Assessment and Plan (1) Dementia: Code(s): F03.90 - Unspecified dementia without behavioral disturbance Status: Acute Plan 67-year-old male with history of hypertension presents with AMS via EVAC under Ferro act after being found by police reserves commander on the side of the road in a vehicle that was disabled due to running out of gas, per ER report. Reportedly patient drove his car here from [place]. Acute encephalopathy/altered mental status, improving, uncertain etiology Dementia Head CT and brain MRI reviewed and unremarkable Chest CTA negative for PE, no effusions, no congestive failure, no emphysema CXR reviewed and unremarkable Labs mostly unremarkable, ammonia wnl, no CO2 retention, BG wnl, UDS negative, UA neg Blood cultures with NG x 5 days EEG reviewed and unremarkable LP unremarkable -Neurology following, appreciate assistance. They have signed off. -S/p empiric IV Vanco/Ampicillin/Rocephin/Acyclovir per neurology, now discontinued -Psychiatry consulted, discussed with Dr. Julio, [place] Act lifted, patient incapable of making decisions -Palliative care consulted, appreciate assistance -Neuropsych following -Continue Seroquel -CM assisting with SNF placement. (patient evaluated by [facility] and insurance declined). -continue on Namenda Accelerated Hypertension, resolved BP now well controlled -Continue on Toprol XL 50mg qd and Norvasc 5mg daily. Lisinopril held due to JOHN -monitor and adjust medications accordingly -Hydralazine prn Hypokalemia, likely secondary to decreased oral intake -resolved s/p K replacement -monitor K as indicated Acute Renal Failure: Cr 2.64 on 04/01, previously 1.22 on 03/18. Likely secondary to dehydration, resolved -s/p IVF, creatinine improved -continue to encourage po intake -avoid nephrotoxins -monitor kidney function as indicated Poor PO intake -Provider Network Manager following, patient now eating 50-75% of meals -continue on Megace DVT Prophylaxis: teds/SCDs; Heparin sq _ (1) Dementia Qualifiers: Alzheimer's disease onset: Dementia behavioral disturbance: Dementia type :
--- NOTE | 2018-04-17 07:11 | P.DS ---
DS: Providers Date of admission: 03/13/18 11:17 Primary care physician: UNKNOWN Consults: 04/03/18 12:01 HUB Only Consult Order Routine Consulting Provider: [facility],Agency Reason for Consultation: LTAC referral 04/04/18 14:17 Consult to Neuropsychology Routine Consulting Provider: Casa Smalls Preferred Surveillance Camera Technician:: Casa Smalls, PhD Reason for Consultation: eval for rehab Notified:: Physician Spoke with:: rayna mcbride Date Notified:: 04/04/18 Time Notified:: 14:34 Ordering Provider: TU 03/13/18 04:45 Consult to Psychiatry Routine Consulting Provider: Cosme Julio Reason for Consultation: psychosis Notified:: Office Spoke with:: RAMA PHYSICIAN CONSULTS Date Notified:: 03/13/18 Time Notified:: 06:24 Comments:: DELAYED DUE TO 4 EMERGENT TRANSFERS Ordering Provider: BYRON 03/13/18 14:02 Consult to Neurology Routine Consulting Provider: Andi Tate Reason for Consultation: Tremors with AMS presented to ED under ferro act Notified:: Office Spoke with:: YUMIKO Date Notified:: 03/13/18 Time Notified:: 14:07 Ordering Provider: EZRA 03/14/18 17:00 Consult to Palliative Care Routine Consulting Provider: Julia Moeller Reason for Consultation: AMS, possible worsening dementia if metabolic etiologies ruled out, family wants to take patient to [place], please assist with establishing goals of care Notified:: Service Spoke with:: Mirela Date Notified:: 03/14/18 Time Notified:: 17:07 Ordering Provider: WILBER 03/15/18 10:09 Consult to Psychiatry Routine Consulting Provider: Cosme Julio Reason for Consultation: Ferro Act, agitation, delirium vs psychosis, assist with determining decision making capacity Notified:: Service Spoke with:: ANGELITA Date Notified:: 03/15/18 Time Notified:: 10:14 Ordering Provider: WILBER 03/15/18 10:28 Consult to Anesthesiology Routine Consult Reason:: Lumbar Puncture 03/16/18 02:11 Consult to Infectious Diseases Routine Consulting Provider: Susan Valencia Reason for Consultation: Bacteremia, encephalopathy Notified:: Service Spoke with:: Alphonso Date Notified:: 03/16/18 Time Notified:: 02:24 Ordering Provider: SKIP 03/27/18 13:22 Consult to Psychiatry Routine Consulting Provider: Erick Page Reason for Consultation: consideration of psych dementia admission. workup negative for reversible cause of mental change. reviewed case with neurology on phone. neuro to sign off. [facility] psych follow up Spoke with:: patrick Date Notified:: 03/27/18 Time Notified:: 13:51 Ordering Provider: EZRA Attending physician on discharge: Emily Light Anticipated date of discharge: 04/18/18 Brief History from admission: Patient is a 67 year old male with history of HTN presenting to the ED after being found poorly responsive in a vehicle. It is unclear where patient was going or coming from but he was brought to the ED for evaluation. Patient unable to provide history and mentation is depressed during evaluation. In ED labwork unremarkable, CTH negative, toxicology negative, ETOH normal, ABG without evidence of hypercarbia causing AMS. CTA performed for elevated D-dimer negative. CXR negative. No evidence of hyPOnatremia. Patient noted to have tremor in examination which appears to have occured within the last 6 months. Unclear etiology. Patient update on day of discharge: Patient seen and examined. Patient does not voice any acute medical complaints or concerns. He says he feels okay. He denies any dizziness, fever, chills, nausea, vomiting, chest pain, shortness of breath or abdominal pain. He has been witnessed ambulating around the unit without any significant difficulties. DS: Diagnosis Discharge Diagnosis (1) Acute encephalopathy: Status: Acute Diagnosis: Principal (2) Dementia: Status: Acute (3) Acute kidney injury: Status: Acute (4) Hypertension: Status: Acute (5) Altered mental status: Status: Acute (6) Acidosis, lactic: Status: Acute (7) Pyuria: Status: Acute DS: Summary Patient was brought into the ED under Ferro act after being found by police on the side of the road in a vehicle that was disabled after patient ran out of gas. Reportedly patient had drove from [place]. Patient was admitted with altered mental status/acute encephalopathy of uncertain etiology. Patient was asked to be seen in consultation by neurology and psychiatry. Initial lab workup was essentially unremarkable except for elevated lactic acid 2.8. He also had elevated d-dimer but follow-up CTA was negative for PE, no pericardial effusion and no CHF. UA showed only pyuria. Urine drug screen was negative. ABG showed no CO2 retention. Blood sugar was within normal limits. Additional workup was unremarkable including negative chest x-ray. Head CT showed no acute intracranial finding. MRI of the brain was grossly unremarkable. RPR and rheumatoid workup was negative. Thiamine, B12 and folate level were elevated. TSH was within normal limits 1.250. EEG showed only mild slowing otherwise was normal. Patient was started empirically on IV vancomycin and ampicillin Rocephin and acyclovir. Patient did have one blood culture positive for coagulase-negative staph and was seen in consultation by infectious disease. This was felt to be likely contaminant. Repeat blood cultures failed to show any growth. Patient required restraints as well as Haldol as needed for agitation. Patient was deemed by psychiatry to lack capacity for medical decision making. Patient did have accelerated hypertension which possibly could have been contributing to his acute encephalopathy. He was treated with high-dose steroids by neurology without any significant improvement. He underwent a lumbar puncture which was unremarkable. His empiric antibiotics were discontinued. He did develop acute renal failure with a bump in creatinine from 2.64 from previous level of 1.22 that was likely due to dehydration. Patient was given IV fluids with improvement in his kidney function. Patient's mentation began to improve. He was able to remain unrestrained. Patient remained partially oriented and was able to follow simple commands. Case management assisted with discharge planning which ultimately was decided by family for assisted living facility. Time Spent with Patient Total time spent providing and/or coordinating discharge services: Greater than 30 minutes Status at Discharge Cognitive/behavioral status at discharge: Partially oriented Exam Narrative Exam Narrative: GENERAL: WDWN male patient, INAD. Awake and alert. Partially oriented. Appears comfortable lying in bed. SKIN: Warm and dry. No generalized rash. HEENT: Atraumatic. Normocephalic. Pupils equal and round. No scleral icterus. No injection or drainage. No nasal bleeding or discharge. Mucous membranes pink and moist. NECK: Trachea midline. CARDIOVASCULAR: Regular rate and rhythm. No murmur appreciated. RESPIRATORY: No accessory muscle use. Clear to auscultation. Breath sounds equal bilaterally. GASTROINTESTINAL: Abdomen soft, non-tender, nondistended. Bowel sounds normal. MUSCULOSKELETAL: Extremities without clubbing, cyanosis, or edema. No obvious deformities. NEUROLOGICAL: Awake and alert. No obvious cranial nerve deficits. Able to move all extremities spontaneously. Normal speech. PSYCHIATRIC: Calm and cooperative. Results Procedures completed during hospitalization: 03/17 lumbar puncture with radiology Labs on day of discharge: Preliminary micro results at discharge 03/16/18 15:53 Mycobacterial Culture - Preliminary Cerebral Spinal Fluid - Lumbar Puncture No growth in 4 weeks Impressions ITS Impressions Chest CTA 03/13/18 00:00 CONCLUSION: 1. Negative for central pulmonary emboli. 2. There is no pericardial effusion. 3. I don't see evidence for congestive failure. 4. I do not see significant emphysematous changes. Head MRI 03/13/18 00:00 CONCLUSION: 1. Grossly unremarkable MRI of the brain. No definite acute intracranial pathology. Chest X-Ray 03/13/18 01:56 CONCLUSION: No acute cardiopulmonary disease identified. Head CT 03/13/18 01:56 CONCLUSION: No acute intracranial findings. . Lumbar Puncture Fluoroscopy 03/16/18 12:31 CONCLUSION: 1. Uncomplicated fluoroscopically guided lumbar puncture. Discharge Plan Discharge Disposition Patient Disposition: Discharge to SNF Discharge Condition Condition: Good Discharge Order Discharge Orders: Discharge Order (Routine); Ordered 04/17/18 Ordered By: Malinda Young Discharge Details Anticipated Discharge Date: 04/17/18 Discharge Comment: Discharge pending Case management discharge plan/safe discharge with family supervision 23/10 Physicians Team Primary Care Provider: UNKNOWN, Attending Provider: Emily Light Other Providers: Cosme Julio ; Andi Tate ; Julia Moeller ; Susan Valencia ; Erick Page ; [facility],Agency ; Casa Smalls Rxs /Orders / Referrals /Forms Prescriptions: New quetiapine 25 mg Tablet 25 mg PO HS Qty: 30 RF: 0 quetiapine 25 mg Tablet 12.5 mg PO DAILY Qty: 30 RF: 0 megestrol 400 mg/10 mL (40 mg/mL) Suspension 400 mg PO DAILY Qty: 100 RF: 0 metoprolol succinate 50 mg Tablet Extended Release 24 Hr 50 mg PO DAILY Qty: 30 RF: 0 amlodipine [Norvasc] 5 mg Tablet 5 mg PO DAILY Qty: 30 RF: 0 memantine [Namenda] 10 mg Tablet 10 mg PO BID Qty: 60 RF: 0 Discontinued metoprolol succinate [Toprol XL] 100 mg tablet extended release 24 hr RF: 0 No Action amlodipine [Norvasc] 5 mg tablet RF: 0 Referrals: UNKNOWN, [Primary Care Provider] - See Instructions ( Please call the physician's office to book the appointment to be seen within one week.) Status ED Status: Left Department
--- NOTE | 2018-04-17 07:11 | P.PNIM ---
Subjective Interval history: Patient seen and examined. Patient does not voice any acute medical complaints or concerns. He says he feels okay. He denies any dizziness , fever, chills, nausea, vomiting, chest pain, shortness of breath or abdominal pain. She has been witnessed ambulating around the unit without any significant difficulties. Physical Exam Vital signs: Vital Signs 04/16/18 08:00 04/16/18 12:00 04/16/18 16:00 Temperature 97.9 F 98.4 F 97.5 F L Pulse Rate 67 76 70 Respiratory Rate 17 17 18 Blood Pressure 125/60 119/72 110/51 L Pulse Oximetry 97 100 97 04/16/18 20:00 04/17/18 00:00 04/17/18 04:00 Temperature 98.6 F 98.8 F 98 F Pulse Rate 76 92 H 74 Respiratory Rate 20 17 17 Blood Pressure 126/76 158/86 H 118/59 L Pulse Oximetry 98 Intake & Output 04/16/18 04/17/18 04/17/18 18:59 06:59 18:59 Intake Total 720 / 720 240 / 240 Balance 720 / 720 240 / 240 Weight 76.8 kg Intake: Oral 720 / 720 240 / 240 Other: # Voids 4 4 Date of Last Bowel Movement 04/16/18 04/16/18 # Bowel Movements 1 Narrative: GENERAL: WDWN male patient, INAD. Awake and alert. Partially oriented. Appears comfortable lying in bed. SKIN: Warm and dry. No generalized rash. HEENT: Atraumatic. Normocephalic. Pupils equal and round. No scleral icterus. No injection or drainage. No nasal bleeding or discharge. Mucous membranes pink and moist. NECK: Trachea midline. CARDIOVASCULAR: Regular rate and rhythm. No murmur appreciated. RESPIRATORY: No accessory muscle use. Clear to auscultation. Breath sounds equal bilaterally. GASTROINTESTINAL: Abdomen soft, non-tender, nondistended. Bowel sounds normal. MUSCULOSKELETAL: Extremities without clubbing, cyanosis, or edema. No obvious deformities. NEUROLOGICAL: Awake and alert. No obvious cranial nerve deficits. Able to move all extremities spontaneously. Normal speech. PSYCHIATRIC: Calm and cooperative. Results Labs CBC & Chem 7: 04/02/18 10:13 04/11/18 07:36 Procedures Procedures: 03/17 lumbar puncture with radiology Assessment and Plan (1) Dementia: Code(s): F03.90 - Unspecified dementia without behavioral disturbance Status: Acute Plan 67-year-old male with history of hypertension presents with AMS via EVAC under Ferro act after being found by financial compliance officer on the side of the road in a vehicle that was disabled due to running out of gas, per ER report. Reportedly patient drove his car here from [place]. 04/17 No significant change. Patient remained stable. He is afebrile. Vital signs stable. Discussed with nursing staff, no adverse events noted overnight. Possible discharge today if family is able to set up 24/7 care at home awaiting further placement at [facility] in the next several days. Acute encephalopathy/altered mental status, improving, uncertain etiology Dementia Head CT and brain MRI reviewed and unremarkable Chest CTA negative for PE, no effusions, no congestive failure, no emphysema CXR reviewed and unremarkable Labs mostly unremarkable, ammonia wnl, no CO2 retention, BG wnl, UDS negative, UA neg Blood cultures with NG x 5 days EEG reviewed and unremarkable LP unremarkable -Neurology following, appreciate assistance. They have signed off. -S/p empiric IV Vanco/Ampicillin/Rocephin/Acyclovir per neurology, now discontinued -Psychiatry consulted, discussed with Dr. Julio, Ferro Act lifted, patient incapable of making decisions -Palliative care consulted, appreciate assistance -Neuropsych following -Continue Seroquel -CM assisting with SNF placement. (patient evaluated by [facility] and insurance declined). -continue on Namenda Accelerated Hypertension, resolved BP now well controlled -Continue on Toprol XL 50mg qd and Norvasc 5mg daily. Lisinopril held due to JOHN -monitor and adjust medications accordingly -Hydralazine prn Hypokalemia, likely secondary to decreased oral intake -resolved s/p K replacement -monitor K as indicated Acute Renal Failure: Cr 2.64 on 04/01, previously 1.22 on 03/18. Likely secondary to dehydration, resolved -s/p IVF, creatinine improved -continue to encourage po intake -avoid nephrotoxins -monitor kidney function as indicated Poor PO intake -[employer] Consultant following, patient now eating 50-75% of meals -continue on Megace DVT Prophylaxis: teds/SCDs; Heparin sq _ (1) Dementia Qualifiers: Alzheimer's disease onset: Dementia behavioral disturbance: Dementia type :
[2018-04-17] MEDS: QUEtiapine 25 MG Tablet PO SCH ×2 (11:09→21:45)
[2018-04-17] MEDS: Megestrol Acetate Liq 400 MG/10 ML UDC PO SCH (11:10)
[2018-04-17] MEDS: amLODIPine 5 MG Tablet PO SCH (11:11)
[2018-04-17] MEDS: Heparin - SQ 10,000 UNITS/ML Vial SQ SCH ×2 (11:11→21:46)
[2018-04-18 04:18] VITALS: RESP 18
[2018-04-18] MEDS: amLODIPine 5 MG Tablet PO SCH (09:31)
[2018-04-18] MEDS: Megestrol Acetate Liq 400 MG/10 ML UDC PO SCH (09:31)
[2018-04-18] MEDS: QUEtiapine 25 MG Tablet PO SCH (09:31)
[2018-04-18] MEDS: Heparin - SQ 10,000 UNITS/ML Vial SQ SCH (09:32)
[2018-04-18 12:58] VITALS: BP 114/57; PULSE 81; TEMP 97.3; O2SAT 97
--- NOTE | 2018-04-18 13:45 | P.PNIM ---
Subjective Interval history: Follow-up on patient with encephalopathy, dementia. Patient seen and examined. Patient encountered sitting on the side of his bed folding his bed sheet. Patient does not indicate that he has any acute medical complaints or concerns. Discussed with nursing staff, no acute events noted overnight. Physical Exam Vital signs: Vital Signs 04/17/18 16:00 04/17/18 20:00 04/18/18 00:00 Temperature 97.3 F L 98.2 F 98.3 F Pulse Rate 52 L 96 H 101 H Respiratory Rate 18 22 22 Blood Pressure 141/63 H 138/71 123/74 Pulse Oximetry 98 96 96 04/18/18 04:00 04/18/18 08:00 04/18/18 12:00 Temperature 98.5 F 97 F L 97.3 F L Pulse Rate 62 85 81 Respiratory Rate 18 18 18 Blood Pressure 102/66 137/65 114/57 L Pulse Oximetry 98 94 L 97 Intake & Output 04/17/18 04/18/18 04/18/18 18:59 06:59 18:59 Intake Total 720 / 720 880 / 880 Balance 720 / 720 880 / 880 Weight 76.2 kg Intake: Oral 720 / 720 880 / 880 Other: # Voids 6 4 Date of Last Bowel Movement 04/16/18 04/17/18 # Bowel Movements 3 # Incontinent Bowel Movements 3 Narrative: GENERAL: WDWN male patient, INAD. Awake and alert. Partially oriented. SKIN: Warm and dry. No generalized rash. HEENT: Atraumatic. Normocephalic. Pupils equal and round. No scleral icterus. No injection or drainage. No nasal bleeding or discharge. Mucous membranes pink and moist. NECK: Trachea midline. CARDIOVASCULAR: Regular rate and rhythm. No murmur appreciated. RESPIRATORY: No accessory muscle use. Clear to auscultation. Breath sounds equal bilaterally. GASTROINTESTINAL: Abdomen soft, non-tender, nondistended. Bowel sounds normal. MUSCULOSKELETAL: Extremities without clubbing, cyanosis, or edema. No obvious deformities. NEUROLOGICAL: Awake and alert. No obvious cranial nerve deficits. Able to move all extremities spontaneously. Normal speech. PSYCHIATRIC: Calm and cooperative. Results Labs CBC & Chem 7: 04/02/18 10:13 04/11/18 07:36 Procedures Procedures: 03/17 lumbar puncture with radiology Assessment and Plan (1) Acute encephalopathy: Code(s): G93.40 - Encephalopathy, unspecified Status: Acute (2) Dementia: Code(s): F03.90 - Unspecified dementia without behavioral disturbance Status: Acute (3) Acute kidney injury: Code(s): N17.9 - Acute kidney failure, unspecified Status: Acute (4) Hypertension: Code(s): I10 - Essential (primary) hypertension Status: Acute (5) Altered mental status: Code(s): R41.82 - Altered mental status, unspecified Status: Acute (6) Acidosis, lactic: Code(s): E87.2 - Acidosis Status: Acute (7) Pyuria: Code(s): N39.0 - Urinary tract infection, site not specified Status: Acute Plan 67-year-old male with history of hypertension presents with AMS via EVAC under Ferro act after being found by police cadet on the side of the road in a vehicle that was disabled due to running out of gas, per ER report. Reportedly patient drove his car here from [place]. 04/18 Patient is stable. No adverse events noted overnight. Vital signs stable. He is afebrile. Awaiting placement. Acute encephalopathy/altered mental status, improving, uncertain etiology Dementia Head CT and brain MRI reviewed and unremarkable Chest CTA negative for PE, no effusions, no congestive failure, no emphysema CXR reviewed and unremarkable Labs mostly unremarkable, ammonia wnl, no CO2 retention, BG wnl, UDS negative, UA neg Blood cultures with NG x 5 days EEG reviewed and unremarkable LP unremarkable -Neurology following, appreciate assistance. They have signed off. -S/p empiric IV Vanco/Ampicillin/Rocephin/Acyclovir per neurology, now discontinued -Psychiatry consulted, discussed with Dr. Julio, Ferro Act lifted, patient incapable of making decisions -Palliative care consulted, appreciate assistance -Neuropsych following -Continue Seroquel -CM assisting with SNF placement. (patient evaluated by [facility] and insurance declined). -continue on Namenda Accelerated Hypertension, resolved BP now well controlled -Continue on Toprol XL 50mg qd and Norvasc 5mg daily. -monitor and adjust medications accordingly -Hydralazine prn Hypokalemia, likely secondary to decreased oral intake -resolved s/p K replacement -monitor K as indicated Acute Renal Failure: Cr 2.64 on 12/31, previously 1.22 on 03/18. Likely secondary to dehydration, resolved -s/p IVF, creatinine improved -continue to encourage po intake -avoid nephrotoxins -monitor kidney function as indicated Poor PO intake -Computer Typesetter following, patient now eating 50-75% of meals -continue on Megace DVT Prophylaxis: teds/SCDs; Heparin sq _ (1) Dementia Qualifiers: Dementia type: Alzheimer's disease onset: Dementia behavioral disturbance : (2) Hypertension Qualifiers: Hypertension type: (3) Altered mental status Qualifiers: Altered mental status type: disorientation Coma depth: Coma timing: Qualified Code(s): R41.0 - Disorientation, unspecified
== END 2018-04-18 16:28 | DRG 884 ==
LOC: NEPC 01:42 → NEDA 01:42 → OBSVTOIN 04:38 → INTOOBSV 04:38 → NEDH 08:23 → NEPHCDU 11:41 → N04 03-15 12:36
PROVIDERS: ADMIT Hospitalist; ATTEND Hospitalist
DX: F03.91 Unspecified dementia, unspecified severity, with behavioral disturbance; I10 Essential (primary) hypertension; N39.0 Urinary tract infection, site not specified; Z51.5 Encounter for palliative care; E86.0 Dehydration; E87.6 Hypokalemia; Z79.899 Other long term (current) drug therapy; R26.81 Unsteadiness on feet; G93.40 Encephalopathy, unspecified; N17.9 Acute kidney failure, unspecified; Z78.1 Physical restraint status; E87.2 Acidosis; R00.0 Tachycardia, unspecified
CPT/HCPCS: 36600; 62270; 70450; 70553; 71010; 71045; 71275; 76937; 77003; 80048; 80053; 80202; 80307; 81001; 82140; 82248; 82390; 82525; 82550; 82552; 82607; 82746; 82805; 82945; 82948; 82962; 83605; 83690; 83735; 83918; 83921; 84100; 84155; 84157; 84165; 84425; 84443; 84484; 85025; 85027; 85379; 85610; 85651; 85652; 85730; 86038; 86140; 86255; 86403; 86430; 86431; 86592; 87015; 87040; 87070; 87077; 87086; 87116; 87186; 87205; 87206; 87327; 87449; 87476; 87498; 87529; 87801; 89050; 89051; 92526; 92610; 93005; 95819; 97110; 97116; 97161; 97167; 97530; 97535; A9585; G0195; G8987; G8988; J0133; J0290; J0360; J0696; J1200; J1630; J1644; J1650; J2060; J2543; J2930; J3370; J3411; J3480; J7030; J7040; J7050; Q9967